=== PATIENT | female | born 1970 | race Caucasian/White ===

== ENCOUNTER 2017-03-30 21:49 | Inpatient (IN) | payer OTHER ==
[2017-03-30] MEDS ORDERED: Albuterol/Ipratropium 3.0-0.5 MG/3 ML Neb Soln NEB ONE (22:22)
--- NOTE | 2017-03-30 22:25 | EDM.PDOC ---
<Vance Wilson L - Last Filed: 03/31/17 13:40> ED HPI GENERAL MEDICAL PROBLEM - General Chief Complaint: Respiratory Problem Stated Complaint: DEHYDRATED AND HARD TIME BREATHING HAS EMPHYSEMA Time Seen by Provider: 03/30/17 22:20 - Related Data Allergies Allergy/AdvReac Type Severity Reaction Status Date / Time milk AdvReac Vomiting Verified 03/31/17 07:21 Home Meds: Home Meds Albuterol [Ventolin HFA] 2 puff INH ASDIRECTED PRN 03/30/17 [History] Course - Vital Signs Last Recorded V/S: Last Vital Signs Temp 36.5 C 04/01/17 04:19 Pulse 52 L 04/01/17 04:19 Resp 19 04/01/17 04:19 BP 148/62 H 04/01/17 04:19 Pulse Ox 96 04/01/17 04:19 - Orders/Labs/Meds Orders: Active Orders 24 hr Category Date Time Status Admission Status [Patient Status] [ADT] Routine ADT 03/31/17 13:40 Active Medication Orders Acetaminophen (Tylenol) 650 mg PO Q4H PRN PRN Reason: Pain/Fever Last Admin: 04/01/17 00:11 Dose: 650 mg Admin: 03/31/17 20:19 Dose: 650 mg Admin: 03/31/17 16:21 Dose: 650 mg Albuterol (Proventil Neb Soln) 2.5 mg NEB Q4HRRT PRN PRN Reason: Shortness of Breath Albuterol/Ipratropium (Duoneb 3.0-0.5 Mg/3 Ml) 3 ml NEB QID PRN PRN Reason: Shortness of Breath Hydralazine HCl (Apresoline) 20 mg IVPUSH Q6H PRN PRN Reason: Hypertension Miscellaneous Information (Remove Patch) 1 ea TRDERM DAILY [facility] Nicotine (Habitrol) 21 mg TRDERM DAILY [facility] Ondansetron HCl (Zofran) 4 mg IVPUSH Q8H PRN PRN Reason: Nausea/Vomiting Aspercreme + Lidocaine Roll On Own Med 0 each TOP Q4H PRN PRN Reason: Pain Temazepam (Restoril) 7.5 mg PO BEDTIME PRN PRN Reason: Insomnia Labs: Laboratory Tests 03/30/17 03/30/17 03/30/17 Range/Units 22:22 22:22 22:29 WBC 7.47 (3.98-10.04) K/mm3 RBC 4.84 (3.98-5.22) M/mm3 Hgb 13.8 (11.2-15.7) gm/L Hct 41.6 (34.1-44.9) % MCV 86.0 (79.4-94.8) fl MCH 28.5 (25.6-32.2) pg MCHC 33.2 (32.2-35.5) g/dl RDW Std Deviation 48.2 H (36.4-46.3) fL Plt Count 206 (182-369) K/mm3 MPV 10.2 (9.4-12.3) fl Neutrophils % (Manual) 63 H (40-60) % Band Neutrophils % 0 (0-10) % Lymphocytes % (Manual) 33 (20-40) % Atypical Lymphs % 2 % Monocytes % (Manual) 2 (2-10) % Eosinophils % (Manual) 0 L (0.7-5.8) % Basophils % (Manual) 0 L (0.1-1.2) Platelet Estimate Adequate Plt Morphology Comment Normal Poikilocytosis 1+ slight Anisocytosis 1+ slight Microcytosis 1+ slight Macrocytosis 1+ slight Tear Drop Cells 1+ slight Ovalocytes 1+ slight RBC Morph Comment Abnormal Sodium 139 (136-145) mEq/L Potassium 3.2 L (3.5-5.1) mEq/L Chloride 98 (98-107) mEq/L Carbon Dioxide 23 (21-32) mEq/L Anion Gap 21.2 H (5-15) BUN 4 L (7-18) mg/dL Creatinine 0.7 (0.55-1.02) mg/dL Est Cr Clr Drug Dosing 105.13 mL/min Estimated GFR (MDRD) > 60 (>60) mL/min BUN/Creatinine Ratio 5.7 L (14-18) Glucose 100 (74-106) mg/dL Serum Osmolality (280-300) mosm/kg Lactic Acid (0.4-2.0) mmol/L Calcium 9.4 (8.5-10.1) mg/dL Magnesium 1.8 (1.8-2.4) mg/dl Total Bilirubin 0.5 (0.2-1.0) mg/dL AST 67 H (15-37) U/L ALT 66 H (14-59) U/L Alkaline Phosphatase 115 (46-116) U/L Troponin I < 0.017 (0.00-0.056) ng/mL C-Reactive Protein 0.3 (<1.0) mg/dL Total Protein 7.6 (6.4-8.2) g/dl Albumin 3.9 (3.4-5.0) g/dl Globulin 3.7 gm/dL Albumin/Globulin Ratio 1.1 (1-2) Lipase 344 (73-393) U/L Urine Color (Yellow) Urine Appearance (Clear) Urine pH (5.0-8.0) Ur Specific [place] (1.005-1.030) Urine Protein (Negative) Urine Glucose (UA) (Negative) Urine Ketones (Negative) Urine Occult Blood (Negative) Urine Nitrite (Negative) Urine Bilirubin (Negative) Urine Urobilinogen (0.2-1.0) Ur Leukocyte Esterase (Negative) Urine RBC (0-5) /hpf Urine WBC (0-5) /hpf Urine WBC Clumps (NOT SEEN) /hpf Ur Epithelial Cells (0-5) /hpf Urine Bacteria (FEW) /hpf Urine Mucus (FEW) /hpf Salicylates (2.8-20) mg/dL Ketones 0.38 (0.0-0.3) mM 03/30/17 03/30/17 03/30/17 Range/Units 22:30 22:50 23:29 WBC (3.98-10.04) K/mm3 RBC (3.98-5.22) M/mm3 Hgb (11.2-15.7) gm/L Hct (34.1-44.9) % MCV (79.4-94.8) fl MCH (25.6-32.2) pg MCHC (32.2-35.5) g/dl RDW Std Deviation (36.4-46.3) fL Plt Count (182-369) K/mm3 MPV (9.4-12.3) fl Neutrophils % (Manual) (40-60) % Band Neutrophils % (0-10) % Lymphocytes % (Manual) (20-40) % Atypical Lymphs % % Monocytes % (Manual) (2-10) % Eosinophils % (Manual) (0.7-5.8) % Basophils % (Manual) (0.1-1.2) Platelet Estimate Plt Morphology Comment Poikilocytosis Anisocytosis Microcytosis Macrocytosis Tear Drop Cells Ovalocytes RBC Morph Comment Sodium (136-145) mEq/L Potassium (3.5-5.1) mEq/L Chloride (98-107) mEq/L Carbon Dioxide (21-32) mEq/L Anion Gap (5-15) BUN (7-18) mg/dL Creatinine (0.55-1.02) mg/dL Est Cr Clr Drug Dosing mL/min Estimated GFR (MDRD) (>60) mL/min BUN/Creatinine Ratio (14-18) Glucose (74-106) mg/dL Serum Osmolality 354 H (280-300) mosm/kg Lactic Acid 4.4 H (0.4-2.0) mmol/L Calcium (8.5-10.1) mg/dL Magnesium (1.8-2.4) mg/dl Total Bilirubin (0.2-1.0) mg/dL AST (15-37) U/L ALT (14-59) U/L Alkaline Phosphatase (46-116) U/L Troponin I (0.00-0.056) ng/mL C-Reactive Protein (<1.0) mg/dL Total Protein (6.4-8.2) g/dl Albumin (3.4-5.0) g/dl Globulin gm/dL Albumin/Globulin Ratio (1-2) Lipase (73-393) U/L Urine Color (Yellow) Urine Appearance (Clear) Urine pH (5.0-8.0) Ur Specific [place] (1.005-1.030) Urine Protein (Negative) Urine Glucose (UA) (Negative) Urine Ketones (Negative) Urine Occult Blood (Negative) Urine Nitrite (Negative) Urine Bilirubin (Negative) Urine Urobilinogen (0.2-1.0) Ur Leukocyte Esterase (Negative) Urine RBC (0-5) /hpf Urine WBC (0-5) /hpf Urine WBC Clumps (NOT SEEN) /hpf Ur Epithelial Cells (0-5) /hpf Urine Bacteria (FEW) /hpf Urine Mucus (FEW) /hpf Salicylates 5.5 (2.8-20) mg/dL Ketones (0.0-0.3) mM 03/30/17 03/31/17 03/31/17 Range/Units 23:50 05:55 05:55 WBC (3.98-10.04) K/mm3 RBC (3.98-5.22) M/mm3 Hgb (11.2-15.7) gm/L Hct (34.1-44.9) % MCV (79.4-94.8) fl MCH (25.6-32.2) pg MCHC (32.2-35.5) g/dl RDW Std Deviation (36.4-46.3) fL Plt Count (182-369) K/mm3 MPV (9.4-12.3) fl Neutrophils % (Manual) (40-60) % Band Neutrophils % (0-10) % Lymphocytes % (Manual) (20-40) % Atypical Lymphs % % Monocytes % (Manual) (2-10) % Eosinophils % (Manual) (0.7-5.8) % Basophils % (Manual) (0.1-1.2) Platelet Estimate Plt Morphology Comment Poikilocytosis Anisocytosis Microcytosis Macrocytosis Tear Drop Cells Ovalocytes RBC Morph Comment Sodium 141 (136-145) mEq/L Potassium 3.4 L (3.5-5.1) mEq/L Chloride 109 H (98-107) mEq/L Carbon Dioxide 23 (21-32) mEq/L Anion Gap 12.4 (5-15) BUN 3 L (7-18) mg/dL Creatinine 0.7 (0.55-1.02) mg/dL Est Cr Clr Drug Dosing 105.13 mL/min Estimated GFR (MDRD) > 60 (>60) mL/min BUN/Creatinine Ratio 4.3 L (14-18) Glucose 157 H (74-106) mg/dL Serum Osmolality (280-300) mosm/kg Lactic Acid 2.9 H (0.4-2.0) mmol/L Calcium 7.8 L (8.5-10.1) mg/dL Magnesium (1.8-2.4) mg/dl Total Bilirubin 0.5 (0.2-1.0) mg/dL AST 44 H (15-37) U/L ALT 46 (14-59) U/L Alkaline Phosphatase 87 (46-116) U/L Troponin I (0.00-0.056) ng/mL C-Reactive Protein (<1.0) mg/dL Total Protein 5.7 L (6.4-8.2) g/dl Albumin 2.8 L (3.4-5.0) g/dl Globulin 2.9 gm/dL Albumin/Globulin Ratio 1.0 (1-2) Lipase (73-393) U/L Urine Color Light yellow (Yellow) Urine Appearance Slt cloudy H (Clear) Urine pH 6.5 (5.0-8.0) Ur Specific [place] 1.010 (1.005-1.030) Urine Protein Negative (Negative) Urine Glucose (UA) Trace H (Negative) Urine Ketones Negative (Negative) Urine Occult Blood 1+ H (Negative) Urine Nitrite Positive H (Negative) Urine Bilirubin Negative (Negative) Urine Urobilinogen 0.2 (0.2-1.0) Ur Leukocyte Esterase 3+ H (Negative) Urine RBC 0-5 (0-5) /hpf Urine WBC 40-50 H (0-5) /hpf Urine WBC Clumps Few (NOT SEEN) /hpf Ur Epithelial Cells 0-5 (0-5) /hpf Urine Bacteria Many H (FEW) /hpf Urine Mucus Not seen (FEW) /hpf Salicylates (2.8-20) mg/dL Ketones (0.0-0.3) mM 03/31/17 03/31/17 Range/Units 12:45 12:45 WBC (3.98-10.04) K/mm3 RBC (3.98-5.22) M/mm3 Hgb (11.2-15.7) gm/L Hct (34.1-44.9) % MCV (79.4-94.8) fl MCH (25.6-32.2) pg MCHC (32.2-35.5) g/dl RDW Std Deviation (36.4-46.3) fL Plt Count (182-369) K/mm3 MPV (9.4-12.3) fl Neutrophils % (Manual) (40-60) % Band Neutrophils % (0-10) % Lymphocytes % (Manual) (20-40) % Atypical Lymphs % % Monocytes % (Manual) (2-10) % Eosinophils % (Manual) (0.7-5.8) % Basophils % (Manual) (0.1-1.2) Platelet Estimate Plt Morphology Comment Poikilocytosis Anisocytosis Microcytosis Macrocytosis Tear Drop Cells Ovalocytes RBC Morph Comment Sodium 142 (136-145) mEq/L Potassium 3.6 (3.5-5.1) mEq/L Chloride 109 H (98-107) mEq/L Carbon Dioxide 23 (21-32) mEq/L Anion Gap 13.6 (5-15) BUN 4 L (7-18) mg/dL Creatinine 0.7 (0.55-1.02) mg/dL Est Cr Clr Drug Dosing 105.13 mL/min Estimated GFR (MDRD) > 60 (>60) mL/min BUN/Creatinine Ratio 5.7 L (14-18) Glucose 125 H (74-106) mg/dL Serum Osmolality (280-300) mosm/kg Lactic Acid 1.6 (0.4-2.0) mmol/L Calcium 7.7 L (8.5-10.1) mg/dL Magnesium (1.8-2.4) mg/dl Total Bilirubin 0.6 (0.2-1.0) mg/dL AST 50 H (15-37) U/L ALT 50 (14-59) U/L Alkaline Phosphatase 82 (46-116) U/L Troponin I (0.00-0.056) ng/mL C-Reactive Protein (<1.0) mg/dL Total Protein 5.4 L (6.4-8.2) g/dl Albumin 2.7 L (3.4-5.0) g/dl Globulin 2.7 gm/dL Albumin/Globulin Ratio 1.0 (1-2) Lipase (73-393) U/L Urine Color (Yellow) Urine Appearance (Clear) Urine pH (5.0-8.0) Ur Specific [place] (1.005-1.030) Urine Protein (Negative) Urine Glucose (UA) (Negative) Urine Ketones (Negative) Urine Occult Blood (Negative) Urine Nitrite (Negative) Urine Bilirubin (Negative) Urine Urobilinogen (0.2-1.0) Ur Leukocyte Esterase (Negative) Urine RBC (0-5) /hpf Urine WBC (0-5) /hpf Urine WBC Clumps (NOT SEEN) /hpf Ur Epithelial Cells (0-5) /hpf Urine Bacteria (FEW) /hpf Urine Mucus (FEW) /hpf Salicylates (2.8-20) mg/dL Ketones (0.0-0.3) mM Meds: Medications Generic Name Dose Route Start Last Admin Trade Name Javy PRN Reason Stop Dose Admin Acetaminophen 650 mg 03/31/17 16:09 04/01/17 00:11 Tylenol PO 650 mg Q4H PRN Administration Pain/Fever Albuterol 2.5 mg 03/31/17 20:05 Proventil Neb Soln NEB Q4HRRT PRN Shortness of Breath Albuterol/Ipratropium 3 ml 03/31/17 20:06 Duoneb 3.0-0.5 Mg/3 Ml NEB QID PRN Shortness of Breath Hydralazine HCl 20 mg 03/31/17 20:06 Apresoline IVPUSH Q6H PRN Hypertension Miscellaneous Information 1 ea 04/02/17 09:00 Remove Patch TRDERM DAILY [facility] Nicotine 21 mg 04/01/17 09:00 Habitrol TRDERM DAILY [facility] Ondansetron HCl 4 mg 03/31/17 20:07 Zofran IVPUSH Q8H PRN Nausea/Vomiting Aspercreme + 0 each 03/31/17 20:29 Lidocaine Roll On TOP Own Med Q4H PRN Pain Temazepam 7.5 mg 03/31/17 20:08 Restoril PO BEDTIME PRN Insomnia Discontinued Medications Generic Name Dose Route Start Last Admin Trade Name Javy PRN Reason Stop Dose Admin Acetaminophen 975 mg 03/31/17 10:48 03/31/17 10:52 Tylenol PO 03/31/17 10:49 975 mg NOW ONE Administration Albuterol/Ipratropium 3 ml 03/30/17 22:22 03/30/17 22:39 Duoneb 3.0-0.5 Mg/3 Ml NEB 03/30/17 22:23 3 ml ONETIME ONE Administration Dextrose/Sodium Chloride 1,000 mls @ 999 mls/hr 03/30/17 22:30 03/31/17 02:15 Dextrose 5%-Normal Saline IV 999 mls/hr ASDIRECTED [facility] Administration Dextrose/Lactated Ringer's 1,000 mls @ 999 mls/hr 03/30/17 23:45 03/31/17 03: 33 Dextrose 5%-Lactated Ringers IV 999 mls/hr ASDIRECTED [facility] Administration Potassium Chloride 10 meq/ 100 mls @ 100 mls/hr 03/30/17 23:45 03/30/17 23:52 Premix IV 03/31/17 00:44 100 mls/hr ONETIME ONE Administration Dextrose/Sodium Chloride 1,000 mls @ 999 mls/min 03/31/17 01:15 Dextrose 5%-Normal Saline IV ASDIRECTED [facility] Levofloxacin/Dextrose 750 mg/ 150 mls @ 100 mls/hr 03/31/17 01:36 03/31/17 01 :43 Premix IV 03/31/17 03:05 100 mls/hr ONETIME ONE Administration Potassium Chloride 10 meq/ 100 mls @ 100 mls/hr 03/31/17 03:09 03/31/17 03:23 Premix IV 03/31/17 04:08 100 mls/hr ONETIME ONE Administration Dextrose/Sodium Chloride 1,000 mls @ 300 mls/hr 03/31/17 07:17 03/31/17 10:52 Dextrose 5%-1/2 Ns IV 300 mls/hr ASDIRECTED [facility] Administration Dextrose/Sodium Chloride 1,000 mls @ 300 mls/hr 03/31/17 07:30 Dextrose 5%-Normal Saline IV ASDIRECTED [facility] Potassium Chloride 10 meq/ 100 mls @ 100 mls/hr 03/31/17 07:30 03/31/17 08:09 Premix IV 03/31/17 08:29 100 mls/hr ONETIME ONE Administration Lorazepam 1 mg 03/31/17 01:03 03/31/17 01:14 Ativan IVPUSH 03/31/17 01:04 1 mg ONETIME ONE Administration Ondansetron HCl 4 mg 03/30/17 22:32 03/30/17 22:37 Zofran IVPUSH 03/30/17 22:33 4 mg ONETIME ONE Administration Departure - Departure Time of Disposition: 07:15 Disposition: Admitted As Inpatient 64 Clinical Impression: Metabolic acidosis with increased anion gap and accumulation of organic acids, Hypokalemia due to inadequate potassium intake, Pyelonephritis Nausea and vomiting Qualifiers: Vomiting type: bilious vomiting Qualified Code(s): R11.14 - Bilious vomiting COPD (chronic obstructive pulmonary disease) Qualifiers: COPD type: unspecified COPD Qualified Code(s): J44.9 - Chronic obstructive pulmonary disease, unspecified Urinary tract infection Qualifiers: Urinary tract infection type: acute cystitis Hematuria presence: without hematuria Qualified Code(s): N30.00 - Acute cystitis without hematuria - Discharge Information <Enrico Alexis - Last Filed: 04/01/17 06:13> ED HPI GENERAL MEDICAL PROBLEM - General Source of Information: Reports: Patient History Limitations: Reports: No Limitations - History of Present Illness INITIAL COMMENTS - FREE TEXT/NARRATIVE: 47-year-old female presents the ED with just generally not feeling well. She states she's not felt well for about 4 days. Low-grade fevers subjectively. No bad chills. She has not checked her temperature at home. Minimal increased cough. She has severe COPD and has not been using her inhalers. She states appetite has been extremely poor and she feels she is dehydrated. Blood pressure initially was 103 on 70 but did drop to 80/54 for a period of time. I' ll function has been okay. She's been trying to take fluids by way of Gatorade Powerade but has had very little solids orally. Previous gastric bypass with [place]-en-Y procedure greater than 20 years ago. Stools are usually formed up. Onset: Gradual Onset Date: 03/27/17 Duration: Day(s):, Getting Worse (Getting weaker.) Location: Reports: Generalized (Generalized weakness and fatigue. Aggressive breath on minimal exertion) Quality: Reports: Other (Severe fatigue and weakness dizziness with standing) Severity: Severe Improves with: Reports: Rest Worsens with: Reports: Other (Worse with standing and walking) Context: Denies: Activity, Exercise, Lifting, Sick Contact, Trauma, Other Associated Symptoms: Reports: Cough, cough w sputum, Fever/Chills (Subjectively fever no chills), Loss of Appetite, Malaise, Nausea/Vomiting (Worse than normal. ), Shortness of Breath, Weakness ( Mild nausea severe generalized weakness ). Denies: No Other Symptoms, Confusion, Chest Pain (Clear sputum but it's thick and normal), Diaphoresis, Syncope Treatments [employer]: Reports: Other (see below) (None.) Right Knee Pain Score (Numeric/FACES): 6 Past Medical History Cardiovascular History: Reports: SOB on Exertion Respiratory History: Reports: Other (See Below) Other Respiratory History: emphysema Other Gastrointestinal History: uncerative cholitis - Past Surgical History GI Surgical History: Reports: Other (See Below) Other GI Surgeries/Procedures: gastric bypass--[place]-en-[place] procedure greater than 20 years ago. Her baseline weight is 150 pounds. She was 89 when she had the bypass. Social & Family History - Tobacco Use Smoking Status *Q: Current Every Day Smoker Years of Tobacco use: 36 Packs/Tins Daily: 0.4 - Caffeine Use Caffeine Use: Reports: Tea - Alcohol Use Days Per Week of Alcohol Use: 2 Number of Drinks Per Day: 2 Total Drinks Per Week: 4 - Recreational Drug Use Recreational Drug Use: No - Living Situation & Occupation Living situation: Reports: Occupation: Employed ED ROS GENERAL - Review of Systems Review Of Systems: See Below Constitutional: Reports: Fever, Malaise (Subjectively), Weakness, Fatigue, Decreased Appetite, Weight Loss. Denies: Chills HEENT: Reports: No Symptoms Respiratory: Reports: Shortness of Breath, Cough, Sputum (Occasional cough with thick white sputum). Denies: Wheezing, Pleuritic Chest Pain, Hemoptysis (white) Cardiovascular: Reports: Dyspnea on Exertion (Chronically), Lightheadedness. Denies: Chest Pain, Blood Pressure Problem, Claudication, Edema, Orthopnea Endocrine: Reports: Fatigue GI/Abdominal: Reports: Anorexia, Decreased Appetite, Nausea (Intermittent nausea ). Denies: Abdominal Pain, Black Stool, Bloody Stool, Constipation, Diarrhea, Difficulty Swallowing, Distension, Flatus, Hematemesis, Hematochezia, Vomiting : Reports: No Symptoms Musculoskeletal: Reports: No Symptoms, Muscle Stiffness Skin: Reports: No Symptoms Neurological: Reports: Dizziness, Difficulty Walking, Weakness (Due to leg weakness) Psychiatric: Reports: No Symptoms Hematologic/Lymphatic: Reports: No Symptoms Immunologic: Reports: No Symptoms ED EXAM, GENERAL - Physical Exam Exam: See Below Exam Limited By: No Limitations General Appearance: Alert, WD/WN, Moderate Distress (Appears ill. Afebrile on examination.) Eye Exam: Bilateral Eye: Normal Inspection (No jaundice.) Throat/Mouth: Other Head: Atraumatic, Normocephalic (Tongue is dry and coated) Neck: Normal Inspection, Supple, Non-Tender, Full Range of Motion. No: Carotid Bruit, Lymphadenopathy (L), Lymphadenopathy (R) Respiratory/Chest: No Respiratory Distress, Decreased Breath Sounds (Breath sounds are mildly diminished the lower 30% of lung costa posteriorly), Rhonchi (Few rhonchi left lower lung field posteriorly.). No: No Accessory Muscle Use, Chest Non-Tender, Respiratory Distress Cardiovascular: Normal Peripheral Pulses, Regular Rate, Rhythm, No Edema, No Gallop, No Murmur, No Rub Peripheral Pulses: 1+: Posterior Tibial (L), Posterior Tibial (R), Dorsalis Pedis (L), Dorsalis Pedis (R) GI/Abdominal: Normal Bowel Sounds, Soft, Non-Tender, No Organomegaly, No Abnormal Bruit, No Mass, Pelvis Stable, Other (Evidence of previous abdominal surgery. She has had gastric bypass surgery.) Back Exam: Normal Inspection, Full Range of Motion. No: CVA Tenderness (L), CVA Tenderness (R) Extremities: Normal Inspection, Normal Range of Motion, Non-Tender, No Pedal Edema Neurological: Alert, Oriented, CN II-XII Intact, Normal Cognition, Normal Gait Psychiatric: Normal Affect, Normal Mood Skin Exam: Warm, Dry, Intact, Pallor (Sleep slight grayish pallor.) Course - Orders/Labs/Meds Orders: Active Orders 24 hr Category Date Time Status Admission Status [Patient Status] [ADT] Routine ADT 03/31/17 13:40 Active Medication Orders Acetaminophen (Tylenol) 650 mg PO Q4H PRN PRN Reason: Pain/Fever Last Admin: 04/01/17 00:11 Dose: 650 mg Admin: 03/31/17 20:19 Dose: 650 mg Admin: 03/31/17 16:21 Dose: 650 mg Albuterol (Proventil Neb Soln) 2.5 mg NEB Q4HRRT PRN PRN Reason: Shortness of Breath Albuterol/Ipratropium (Duoneb 3.0-0.5 Mg/3 Ml) 3 ml NEB QID PRN PRN Reason: Shortness of Breath Hydralazine HCl (Apresoline) 20 mg IVPUSH Q6H PRN PRN Reason: Hypertension Miscellaneous Information (Remove Patch) 1 ea TRDERM DAILY [facility] Nicotine (Habitrol) 21 mg TRDERM DAILY [facility] Ondansetron HCl (Zofran) 4 mg IVPUSH Q8H PRN PRN Reason: Nausea/Vomiting Aspercreme + Lidocaine Roll On Own Med 0 each TOP Q4H PRN PRN Reason: Pain Temazepam (Restoril) 7.5 mg PO BEDTIME PRN PRN Reason: Insomnia Labs: Laboratory Tests 03/30/17 03/30/17 03/30/17 Range/Units 22:22 22:22 22:29 WBC 7.47 (3.98-10.04) K/mm3 RBC 4.84 (3.98-5.22) M/mm3 Hgb 13.8 (11.2-15.7) gm/L Hct 41.6 (34.1-44.9) % MCV 86.0 (79.4-94.8) fl MCH 28.5 (25.6-32.2) pg MCHC 33.2 (32.2-35.5) g/dl RDW Std Deviation 48.2 H (36.4-46.3) fL Plt Count 206 (182-369) K/mm3 MPV 10.2 (9.4-12.3) fl Neutrophils % (Manual) 63 H (40-60) % Band Neutrophils % 0 (0-10) % Lymphocytes % (Manual) 33 (20-40) % Atypical Lymphs % 2 % Monocytes % (Manual) 2 (2-10) % Eosinophils % (Manual) 0 L (0.7-5.8) % Basophils % (Manual) 0 L (0.1-1.2) Platelet Estimate Adequate Plt Morphology Comment Normal Poikilocytosis 1+ slight Anisocytosis 1+ slight Microcytosis 1+ slight Macrocytosis 1+ slight Tear Drop Cells 1+ slight Ovalocytes 1+ slight RBC Morph Comment Abnormal Sodium 139 (136-145) mEq/L Potassium 3.2 L (3.5-5.1) mEq/L Chloride 98 (98-107) mEq/L Carbon Dioxide 23 (21-32) mEq/L Anion Gap 21.2 H (5-15) BUN 4 L (7-18) mg/dL Creatinine 0.7 (0.55-1.02) mg/dL Est Cr Clr Drug Dosing 105.13 mL/min Estimated GFR (MDRD) > 60 (>60) mL/min BUN/Creatinine Ratio 5.7 L (14-18) Glucose 100 (74-106) mg/dL Serum Osmolality (280-300) mosm/kg Lactic Acid (0.4-2.0) mmol/L Calcium 9.4 (8.5-10.1) mg/dL Magnesium 1.8 (1.8-2.4) mg/dl Total Bilirubin 0.5 (0.2-1.0) mg/dL AST 67 H (15-37) U/L ALT 66 H (14-59) U/L Alkaline Phosphatase 115 (46-116) U/L Troponin I < 0.017 (0.00-0.056) ng/mL C-Reactive Protein 0.3 (<1.0) mg/dL Total Protein 7.6 (6.4-8.2) g/dl Albumin 3.9 (3.4-5.0) g/dl Globulin 3.7 gm/dL Albumin/Globulin Ratio 1.1 (1-2) Lipase 344 (73-393) U/L Urine Color (Yellow) Urine Appearance (Clear) Urine pH (5.0-8.0) Ur Specific [place] (1.005-1.030) Urine Protein (Negative) Urine Glucose (UA) (Negative) Urine Ketones (Negative) Urine Occult Blood (Negative) Urine Nitrite (Negative) Urine Bilirubin (Negative) Urine Urobilinogen (0.2-1.0) Ur Leukocyte Esterase (Negative) Urine RBC (0-5) /hpf Urine WBC (0-5) /hpf Urine WBC Clumps (NOT SEEN) /hpf Ur Epithelial Cells (0-5) /hpf Urine Bacteria (FEW) /hpf Urine Mucus (FEW) /hpf Salicylates (2.8-20) mg/dL Ketones 0.38 (0.0-0.3) mM 03/30/17 03/30/17 03/30/17 Range/Units 22:30 22:50 23:29 WBC (3.98-10.04) K/mm3 RBC (3.98-5.22) M/mm3 Hgb (11.2-15.7) gm/L Hct (34.1-44.9) % MCV (79.4-94.8) fl MCH (25.6-32.2) pg MCHC (32.2-35.5) g/dl RDW Std Deviation (36.4-46.3) fL Plt Count (182-369) K/mm3 MPV (9.4-12.3) fl Neutrophils % (Manual) (40-60) % Band Neutrophils % (0-10) % Lymphocytes % (Manual) (20-40) % Atypical Lymphs % % Monocytes % (Manual) (2-10) % Eosinophils % (Manual) (0.7-5.8) % Basophils % (Manual) (0.1-1.2) Platelet Estimate Plt Morphology Comment Poikilocytosis Anisocytosis Microcytosis Macrocytosis Tear Drop Cells Ovalocytes RBC Morph Comment Sodium (136-145) mEq/L Potassium (3.5-5.1) mEq/L Chloride (98-107) mEq/L Carbon Dioxide (21-32) mEq/L Anion Gap (5-15) BUN (7-18) mg/dL Creatinine (0.55-1.02) mg/dL Est Cr Clr Drug Dosing mL/min Estimated GFR (MDRD) (>60) mL/min BUN/Creatinine Ratio (14-18) Glucose (74-106) mg/dL Serum Osmolality 354 H (280-300) mosm/kg Lactic Acid 4.4 H (0.4-2.0) mmol/L Calcium (8.5-10.1) mg/dL Magnesium (1.8-2.4) mg/dl Total Bilirubin (0.2-1.0) mg/dL AST (15-37) U/L ALT (14-59) U/L Alkaline Phosphatase (46-116) U/L Troponin I (0.00-0.056) ng/mL C-Reactive Protein (<1.0) mg/dL Total Protein (6.4-8.2) g/dl Albumin (3.4-5.0) g/dl Globulin gm/dL Albumin/Globulin Ratio (1-2) Lipase (73-393) U/L Urine Color (Yellow) Urine Appearance (Clear) Urine pH (5.0-8.0) Ur Specific [place] (1.005-1.030) Urine Protein (Negative) Urine Glucose (UA) (Negative) Urine Ketones (Negative) Urine Occult Blood (Negative) Urine Nitrite (Negative) Urine Bilirubin (Negative) Urine Urobilinogen (0.2-1.0) Ur Leukocyte Esterase (Negative) Urine RBC (0-5) /hpf Urine WBC (0-5) /hpf Urine WBC Clumps (NOT SEEN) /hpf Ur Epithelial Cells (0-5) /hpf Urine Bacteria (FEW) /hpf Urine Mucus (FEW) /hpf Salicylates 5.5 (2.8-20) mg/dL Ketones (0.0-0.3) mM 03/30/17 03/31/17 03/31/17 Range/Units 23:50 05:55 05:55 WBC (3.98-10.04) K/mm3 RBC (3.98-5.22) M/mm3 Hgb (11.2-15.7) gm/L Hct (34.1-44.9) % MCV (79.4-94.8) fl MCH (25.6-32.2) pg MCHC (32.2-35.5) g/dl RDW Std Deviation (36.4-46.3) fL Plt Count (182-369) K/mm3 MPV (9.4-12.3) fl Neutrophils % (Manual) (40-60) % Band Neutrophils % (0-10) % Lymphocytes % (Manual) (20-40) % Atypical Lymphs % % Monocytes % (Manual) (2-10) % Eosinophils % (Manual) (0.7-5.8) % Basophils % (Manual) (0.1-1.2) Platelet Estimate Plt Morphology Comment Poikilocytosis Anisocytosis Microcytosis Macrocytosis Tear Drop Cells Ovalocytes RBC Morph Comment Sodium 141 (136-145) mEq/L Potassium 3.4 L (3.5-5.1) mEq/L Chloride 109 H (98-107) mEq/L Carbon Dioxide 23 (21-32) mEq/L Anion Gap 12.4 (5-15) BUN 3 L (7-18) mg/dL Creatinine 0.7 (0.55-1.02) mg/dL Est Cr Clr Drug Dosing 105.13 mL/min Estimated GFR (MDRD) > 60 (>60) mL/min BUN/Creatinine Ratio 4.3 L (14-18) Glucose 157 H (74-106) mg/dL Serum Osmolality (280-300) mosm/kg Lactic Acid 2.9 H (0.4-2.0) mmol/L Calcium 7.8 L (8.5-10.1) mg/dL Magnesium (1.8-2.4) mg/dl Total Bilirubin 0.5 (0.2-1.0) mg/dL AST 44 H (15-37) U/L ALT 46 (14-59) U/L Alkaline Phosphatase 87 (46-116) U/L Troponin I (0.00-0.056) ng/mL C-Reactive Protein (<1.0) mg/dL Total Protein 5.7 L (6.4-8.2) g/dl Albumin 2.8 L (3.4-5.0) g/dl Globulin 2.9 gm/dL Albumin/Globulin Ratio 1.0 (1-2) Lipase (73-393) U/L Urine Color Light yellow (Yellow) Urine Appearance Slt cloudy H (Clear) Urine pH 6.5 (5.0-8.0) Ur Specific [place] 1.010 (1.005-1.030) Urine Protein Negative (Negative) Urine Glucose (UA) Trace H (Negative) Urine Ketones Negative (Negative) Urine Occult Blood 1+ H (Negative) Urine Nitrite Positive H (Negative) Urine Bilirubin Negative (Negative) Urine Urobilinogen 0.2 (0.2-1.0) Ur Leukocyte Esterase 3+ H (Negative) Urine RBC 0-5 (0-5) /hpf Urine WBC 40-50 H (0-5) /hpf Urine WBC Clumps Few (NOT SEEN) /hpf Ur Epithelial Cells 0-5 (0-5) /hpf Urine Bacteria Many H (FEW) /hpf Urine Mucus Not seen (FEW) /hpf Salicylates (2.8-20) mg/dL Ketones (0.0-0.3) mM 03/31/17 03/31/17 Range/Units 12:45 12:45 WBC (3.98-10.04) K/mm3 RBC (3.98-5.22) M/mm3 Hgb (11.2-15.7) gm/L Hct (34.1-44.9) % MCV (79.4-94.8) fl MCH (25.6-32.2) pg MCHC (32.2-35.5) g/dl RDW Std Deviation (36.4-46.3) fL Plt Count (182-369) K/mm3 MPV (9.4-12.3) fl Neutrophils % (Manual) (40-60) % Band Neutrophils % (0-10) % Lymphocytes % (Manual) (20-40) % Atypical Lymphs % % Monocytes % (Manual) (2-10) % Eosinophils % (Manual) (0.7-5.8) % Basophils % (Manual) (0.1-1.2) Platelet Estimate Plt Morphology Comment Poikilocytosis Anisocytosis Microcytosis Macrocytosis Tear Drop Cells Ovalocytes RBC Morph Comment Sodium 142 (136-145) mEq/L Potassium 3.6 (3.5-5.1) mEq/L Chloride 109 H (98-107) mEq/L Carbon Dioxide 23 (21-32) mEq/L Anion Gap 13.6 (5-15) BUN 4 L (7-18) mg/dL Creatinine 0.7 (0.55-1.02) mg/dL Est Cr Clr Drug Dosing 105.13 mL/min Estimated GFR (MDRD) > 60 (>60) mL/min BUN/Creatinine Ratio 5.7 L (14-18) Glucose 125 H (74-106) mg/dL Serum Osmolality (280-300) mosm/kg Lactic Acid 1.6 (0.4-2.0) mmol/L Calcium 7.7 L (8.5-10.1) mg/dL Magnesium (1.8-2.4) mg/dl Total Bilirubin 0.6 (0.2-1.0) mg/dL AST 50 H (15-37) U/L ALT 50 (14-59) U/L Alkaline Phosphatase 82 (46-116) U/L Troponin I (0.00-0.056) ng/mL C-Reactive Protein (<1.0) mg/dL Total Protein 5.4 L (6.4-8.2) g/dl Albumin 2.7 L (3.4-5.0) g/dl Globulin 2.7 gm/dL Albumin/Globulin Ratio 1.0 (1-2) Lipase (73-393) U/L Urine Color (Yellow) Urine Appearance (Clear) Urine pH (5.0-8.0) Ur Specific [place] (1.005-1.030) Urine Protein (Negative) Urine Glucose (UA) (Negative) Urine Ketones (Negative) Urine Occult Blood (Negative) Urine Nitrite (Negative) Urine Bilirubin (Negative) Urine Urobilinogen (0.2-1.0) Ur Leukocyte Esterase (Negative) Urine RBC (0-5) /hpf Urine WBC (0-5) /hpf Urine WBC Clumps (NOT SEEN) /hpf Ur Epithelial Cells (0-5) /hpf Urine Bacteria (FEW) /hpf Urine Mucus (FEW) /hpf Salicylates (2.8-20) mg/dL Ketones (0.0-0.3) mM Meds: Medications Generic Name Dose Route Start Last Admin Trade Name Freq PRN Reason Stop Dose Admin Acetaminophen 650 mg 03/31/17 16:09 04/01/17 00:11 Tylenol PO 650 mg Q4H PRN Administration Pain/Fever Albuterol 2.5 mg 03/31/17 20:05 Proventil Neb Soln NEB Q4HRRT PRN Shortness of Breath Albuterol/Ipratropium 3 ml 03/31/17 20:06 Duoneb 3.0-0.5 Mg/3 Ml NEB QID PRN Shortness of Breath Hydralazine HCl 20 mg 03/31/17 20:06 Apresoline IVPUSH Q6H PRN Hypertension Miscellaneous Information 1 ea 04/02/17 09:00 Remove Patch TRDERM DAILY BHAVANI Nicotine 21 mg 04/01/17 09:00 Habitrol TRDERM DAILY BHAVANI Ondansetron HCl 4 mg 03/31/17 20:07 Zofran IVPUSH Q8H PRN Nausea/Vomiting Aspercreme + 0 each 03/31/17 20:29 Lidocaine Roll On TOP Own Med Q4H PRN Pain Temazepam 7.5 mg 03/31/17 20:08 Restoril PO BEDTIME PRN Insomnia Discontinued Medications Generic Name Dose Route Start Last Admin Trade Name Freq PRN Reason Stop Dose Admin Acetaminophen 975 mg 03/31/17 10:48 03/31/17 10:52 Tylenol PO 03/31/17 10:49 975 mg NOW ONE Administration Albuterol/Ipratropium 3 ml 03/30/17 22:22 03/30/17 22:39 Duoneb 3.0-0.5 Mg/3 Ml NEB 03/30/17 22:23 3 ml ONETIME ONE Administration Dextrose/Sodium Chloride 1,000 mls @ 999 mls/hr 03/30/17 22:30 03/31/17 02:15 Dextrose 5%-Normal Saline IV 999 mls/hr ASDIRECTED BHAVANI Administration Dextrose/Lactated Ringer's 1,000 mls @ 999 mls/hr 03/30/17 23:45 03/31/17 03: 33 Dextrose 5%-Lactated Ringers IV 999 mls/hr ASDIRECTED BHAVANI Administration Potassium Chloride 10 meq/ 100 mls @ 100 mls/hr 03/30/17 23:45 03/30/17 23:52 Premix IV 03/31/17 00:44 100 mls/hr ONETIME ONE Administration Dextrose/Sodium Chloride 1,000 mls @ 999 mls/min 03/31/17 01:15 Dextrose 5%-Normal Saline IV ASDIRECTED BHAVANI Levofloxacin/Dextrose 750 mg/ 150 mls @ 100 mls/hr 03/31/17 01:36 03/31/17 01 :43 Premix IV 03/31/17 03:05 100 mls/hr ONETIME ONE Administration Potassium Chloride 10 meq/ 100 mls @ 100 mls/hr 03/31/17 03:09 03/31/17 03:23 Premix IV 03/31/17 04:08 100 mls/hr ONETIME ONE Administration Dextrose/Sodium Chloride 1,000 mls @ 300 mls/hr 03/31/17 07:17 03/31/17 10:52 Dextrose 5%-1/2 Ns IV 300 mls/hr ASDIRECTED BHAVANI Administration Dextrose/Sodium Chloride 1,000 mls @ 300 mls/hr 03/31/17 07:30 Dextrose 5%-Normal Saline IV ASDIRECTED BHAVANI Potassium Chloride 10 meq/ 100 mls @ 100 mls/hr 03/31/17 07:30 03/31/17 08:09 Premix IV 03/31/17 08:29 100 mls/hr ONETIME ONE Administration Lorazepam 1 mg 03/31/17 01:03 03/31/17 01:14 Ativan IVPUSH 03/31/17 01:04 1 mg ONETIME ONE Administration Ondansetron HCl 4 mg 03/30/17 22:32 03/30/17 22:37 Zofran IVPUSH 03/30/17 22:33 4 mg ONETIME ONE Administration - Radiology Interpretation Free Text/Narrative:: 47-year-old female presents to the ED with a four-day history of feeling unwell. Very poor oral intake as well as very poor intake of solids for the last 3-4 days. Feels severely weak and short of breath on minimal exertion. Has known severe COPD for age. Unclear if she has antitrypsin 1 deficiency. She states she has a cough bringing up mostly thick white sputum. Subjective fever but afebrile on exam here. Blood pressure is very low suggesting she is volume depleted. Does have a few rhonchi left lower lobe of lung posteriorly. The nose and throat exam is otherwise normal. Benign abdomen. She denies any genitourinary complaints. Clinically she may be suffering from a metabolic acidosis possible sepsis. She appears ill. Plan routine labs with blood cultures 2. Lactic acid serum ketones to be done as well. IV will be D5 normal saline at open. Given Zofran 4 mg IV for slight nausea relief. At present she is afebrile. O2 sats are 96% on room air. Will have one view of the chest done. - Re-Assessments/Exams Free Text/Narrative Re-Assessment/Exam: 03/30/17 23:13 portable chest x-ray is within normal limits showing minimal hyperinflation. Lungs are clear. Cardiac silhouette is normal in size and shape. 03/30/17 23:28 Labs revealed a white count of 7.47 differential pending. Hemoglobin is 13.8 with hematocrit of 41.6. Platelets are normal 206,000. Sodium is 139 potassium is low at 3.2. Chloride 98 bicarbonate 23 and a gap is markedly elevated at 21.2. BUN is 4. Creatinine is 0.7. GFR is greater than 60. BUN/creatinine ratio is low at 5.7 glucose 100 cm osmolality 354 markedly elevated. Calcium is 9.4 with magnesium of 1.8. Total bilirubin 0.5 AST is mildly elevated at 67 ALT is 66. Alk phosphatase normal at 1:15. Troponin is less than 0.017 C-reactive protein is 0.3. Lipase normal at 344. Serum ketones and lactic acid pending. Therefore the cause of metabolic acidosis is not readily evident. Will order serum salicylate level. Blood pressure is currently 97/72. 03/31/17 00:07 Differential available on the white count is 63% neutrophils and no bands. 33% lymphocytes. Lactic acid is markedly elevated at 4.4. Serum ketones are elevated at 0.38.. Salicylate level came back at 5.5 i.e. normal range. 03/31/17 01:05 patient will be given Ativan 1 mg IV to help her sleep as she will be staying in the ED overnight for IV hydration to correct her metabolic acidosis. He did eat a small meal at this time. Third liter of fluid will be D5 normal saline at open 03/31/17 01:35 Urinalysis is now back. Shows 1+ occult blood positive nitrates 3 + leukocyte esterase 40-50 WBCs per high-power field and many bacteria. Urine culture ordered. Patient will be treated with Levaquin 750 mg IV. Patient will have CMP and lactic acid repeated at 0600 hrs. The plan will to be to give her 4 L of fluid overnight to correct the metabolic acidosis. It's unclear she's actually ill from the urinary tract infection as she has a normal white count and no fever. Current blood preasure is 88/75 suggesting sepsis. It has been hanging mostly around 97-100 systolic. 03/31/17 03:08 BP is currently 98/46. Will add second dosage of potassium chloride-10 mEq IV over the next hour. Patient has been able to rest since receiving intravenous Ativan 1 mg. 03/31/17 04:59 BP is currently 98/52. Is been as high as 108 systolically. Current IV isD5 normal saline at 300 mils per hour. 03/31/17 07:31 labs are as improved compared to initial labs. However she remains acidotic with lactic acid of 2.9. It was 4.4 when she came in. Anion gap is improved dramatically from 21.9 down to 12.2. Potassium is still slightly low at 3.4. Plan continue IV fluids D5 normal saline at 300 mils an hour. She will receive another 10 mg potassium IV over the next hour. Discussed the case with communications station manager hospitalist Dr. Quiñones and the plan will be for her to eventually be admitted to the [facility] surgery floor as an inpatient. There will be some discharges this morning therefore the patient will remain in the emergency room until a satisfactory bed can be found for her. Dr. Laird is taking over as it is change of shift. Departure - Departure Condition: Fair
[2017-03-30] MEDS: Dextrose 5%-0.9% NaCl 1,000 ML IV SCH ×2 (22:28→23:50)
[2017-03-30] MEDS ORDERED: Ondansetron 4 MG/2 ML SDV IVPUSH ONE (22:32)
[2017-03-30] MEDS ORDERED: Potassium Chloride 10 MEQ in Premix Bag 1 BAG IV ONE (23:45)
[2017-03-30] MEDS ORDERED: Dextrose 5%-Lactated Ringers 1,000 ML IV SCH (23:45)
[2017-03-31] MEDS ORDERED: LORazepam 2 MG/ML MDV IVPUSH ONE (01:03)
[2017-03-31] MEDS: Dextrose 5%-0.9% NaCl 1,000 ML IV SCH ×2 (01:12→02:15)
[2017-03-31] MEDS ORDERED: Dextrose 5%-0.9% NaCl 1,000 ML IV SCH ×2 (01:15→07:30)
[2017-03-31] MEDS ORDERED: Levofloxacin/Dextrose 5%-Water 750 MG in Premix Bag 1 BAG IV ONE (01:36)
[2017-03-31] MEDS ORDERED: Potassium Chloride 10 MEQ in Premix Bag 1 BAG IV ONE ×2 (03:09→07:30)
[2017-03-31] MEDS: Dextrose 5%-0.45% NaCl 1,000 ML IV SCH ×2 (07:26→10:52)
--- NOTE | 2017-03-31 10:06 | CR ---
Chest: Portable view of the chest was obtained. Comparison: Prior chest x-ray of 09/04/14. Heart size and mediastinum are normal. Slight linear scarring is seen within the left lung base. Lungs otherwise are clear but hyperinflated. Mild scoliosis is present within the spine. Surgical clips are seen at the gastroesophageal junction. Impression: 1. Incidental findings. Diagnostic code #2
[2017-03-31] MEDS ORDERED: Acetaminophen 325 MG Tab PO ONE (10:48)
--- NOTE | 2017-03-31 16:17 | PCM.HP ---
H&P History of Present Illness - General Date of Service: 03/31/17 - History of Present Illness Initial Comments - Free Text/Narative: 47 year old female with symptoms of respiratory infection had an elevated lactic acid received over 5 liters in the ED along with Levoquin has greatly improved. She has greatly improved. The patient has a past medical history of COPD; she is a current tobacco user. Reportedly has a thirty six pack year history. The patient has not been feeling well for over 4 days with a low grade fever. It was associated with chills and a productive cough. She has experienced generalized weakness, malaise and a decreased appetite. UA was positive for AUTI, respiratory work also be pursue. She has been admitted to [facility]. Onset of Symptoms: Reports: Gradual Symptom Onset Date: 03/27/17 Duration of Symptoms: Reports: Day(s):, Getting Worse Location: Reports: Abdomen, Generalized Severity: Moderate Improves with: Reports: Medication Worsens with: Reports: None Associated Symptoms: Reports: Fever/Chills, Loss of Appetite, Malaise, Nausea/ Vomiting, Weakness Right Knee Pain Score (Numeric/FACES): 6 - Related Data Allergies/Adverse Reactions: Allergies Allergy/AdvReac Type Severity Reaction Status Date / Time milk AdvReac Vomiting Verified 03/31/17 07:21 Home Medications: Home Meds Albuterol [Ventolin HFA] 2 puff INH ASDIRECTED PRN 03/30/17 [History] Past Medical History HEENT History: Reports: Impaired Vision Other HEENT History: glasses Cardiovascular History: Reports: SOB on Exertion Respiratory History: Reports: None, Other (See Below) Other Respiratory History: emphysema Other Gastrointestinal History: ulcerative cholitis Genitourinary History: Reports: None 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 Her baseline weight is 150 pounds. She was 89 when she had the bypass. Female Surgical History: Reports: Tubal Ligation Endocrine Surgical History: Reports: None Musculoskeletal Surgical History: Reports: None Social & Family History - Family History Family Medical History: Noncontributory - Tobacco Use Smoking Status *Q: Current Every Day Smoker Years of Tobacco use: 35 Packs/Tins Daily: 2 Used Tobacco, but Quit: No Second Hand Smoke Exposure: Yes - Caffeine Use Caffeine Use: Reports: Soda, Tea - Alcohol Use Days Per Week of Alcohol Use: 4 Number of Drinks Per Day: 6 Total Drinks Per Week: 24 Date of Last Drink: 03/28/17 Time of Last Drink: 20:00 - Recreational Drug Use Recreational Drug Use: No - Living Situation & Occupation Living situation: Reports: Occupation: Employed H&P Review of Systems - Review of Systems: Review Of Systems: See Below General: Reports: Fever, Chills, Malaise, Weakness, Fatigue HEENT: Reports: No Symptoms Pulmonary: Reports: Pleuritic Chest Pain, Cough, Sputum Cardiovascular: Reports: No Symptoms Gastrointestinal: Reports: No Symptoms Genitourinary: Reports: No Symptoms Musculoskeletal: Reports: No Symptoms Skin: Reports: No Symptoms Psychiatric: Reports: No Symptoms Neurological: Reports: No Symptoms Hematologic/Lymphatic: Reports: No Symptoms Immunologic: Reports: No Symptoms Exam - Exam Exam: See Below - Vital Signs Vital Signs: Last Vital Signs Temp 36.7 C 03/31/17 15:06 Pulse 71 03/31/17 15:06 Resp 18 03/31/17 15:06 BP 115/74 03/31/17 15:06 Pulse Ox 97 03/31/17 15:06 Weight: 76.702 kg - Exam Quality Assessment: Supplemental Oxygen, DVT Prophylaxis General: Alert, Oriented, Cooperative HEENT: Conjunctiva Clear, EOMI, Nares Patent, Pupils Equal, Pupils Reactive, PERRLA Neck: Trachea Midline Lungs: Normal Respiratory Effort Cardiovascular: Regular Rate, Regular Rhythm GI/Abdominal Exam: Normal Bowel Sounds, Soft, Non-Tender, No Organomegaly, No Distention (Female) Exam: Deferred Rectal (Female) Exam: Deferred Back Exam: Normal Inspection Extremities: Normal Inspection, Normal Range of Motion - Patient Data Result Diagrams: 03/30/17 22:22 03/31/17 12:45 *Q Meaningful Use (ADM) - VTE *Q VTE Criteria *Q: - Stroke *Q Stroke Criteria *Q: - AMI *Q AMI Criteria *Q: - Problem List (1) Tobacco dependence SNOMED Code(s): 65793042 ICD Code: F17.200 - NICOTINE DEPENDENCE, UNSPECIFIED, UNCOMPLICATED Status : Acute Current Visit: Yes (2) COPD (chronic obstructive pulmonary disease) SNOMED Code(s): 72030892 ICD Code: J44.9 - CHRONIC OBSTRUCTIVE PULMONARY DISEASE, UNSPECIFIED Status : Acute Current Visit: Yes Qualifiers: COPD type: unspecified COPD Qualified Code(s): J44.9 - Chronic obstructive pulmonary disease, unspecified (3) Hypokalemia due to inadequate potassium intake SNOMED Code(s): 08232895 ICD Code: E87.6 - HYPOKALEMIA Status: Acute Current Visit: Yes (4) Metabolic acidosis with increased anion gap and accumulation of organic acids SNOMED Code(s): 64347981 ICD Code: E87.2 - ACIDOSIS Status: Acute Current Visit: Yes (5) Nausea and vomiting SNOMED Code(s): 26852803 ICD Code: R11.2 - NAUSEA WITH VOMITING, UNSPECIFIED Status: Acute Current Visit: Yes Qualifiers: Vomiting type: bilious vomiting Qualified Code(s): R11.14 - Bilious vomiting (6) Pyelonephritis SNOMED Code(s): 19293848 ICD Code: N12 - TUBULO-INTERSTITIAL NEPHRITIS, NOT SPCF ACUTE OR CHRONIC Status: Acute Current Visit: Yes (7) Urinary tract infection SNOMED Code(s): 43059733 ICD Code: N39.0 - URINARY TRACT INFECTION, SITE NOT SPECIFIED Status: Acute Current Visit: Yes Qualifiers: Urinary tract infection type: acute cystitis Hematuria presence: without hematuria Qualified Code(s): N30.00 - Acute cystitis without hematuria Problem List Initiated/Reviewed/Updated: Yes Orders Last 24hrs: Active Orders 24 hr Category Date Time Status Acetaminophen [Tylenol] Med 03/31/17 16:09 Ordered 650 mg PO Q4H PRN Resuscitation Status Routine Resus Stat 03/31/17 14:37 Ordered Medication Orders Acetaminophen (Tylenol) 650 mg PO Q4H PRN PRN Reason: Pain/Fever Dextrose/Sodium Chloride (Dextrose 5%-1/2 Ns) 1,000 mls @ 300 mls/hr IV ASDIRECTED BHAVANI Last Admin: 03/31/17 10:52 Dose: 300 mls/hr Infusion: 03/31/17 10:46 Dose: 300 mls/hr Admin: 03/31/17 07:26 Dose: 300 mls/hr Assessment/Plan Comment:: Impression: Sepsis, improved with mixed picture UTI and respiratory symptoms Query CAP/Influenza, history of COPD AUTI Chronic Tobacco dependence Plan: IVF Rocephin 2 gm Qd Home meds Daily labs DVT/GI prophylaxis Consult PT/OT/CM as needed.
[2017-03-31] MEDS: Acetaminophen 325 MG Tab PO PRN ×2 (16:21→20:19)
[2017-03-31] MEDS ORDERED: Albuterol 0.083% 2.5 MG/3 ML Neb Soln NEB PRN (20:05)
[2017-03-31] MEDS ORDERED: Albuterol/Ipratropium 3.0-0.5 MG/3 ML Neb Soln NEB PRN (20:06)
[2017-03-31] MEDS ORDERED: hydrALAZINE 20 MG/ML SDV IVPUSH PRN (20:06)
[2017-03-31] MEDS ORDERED: Ondansetron 4 MG/2 ML SDV IVPUSH PRN (20:07)
[2017-03-31] MEDS ORDERED: Temazepam 7.5 MG Cap PO PRN (20:08)
[2017-03-31] MEDS ORDERED: [UNRECOGNIZED DRUG - OTHER] TOP PRN (20:29)
[2017-03-31] MEDS ORDERED: ASPERCREME TOP PRN (20:29)
[2017-04-01] MEDS: Acetaminophen 325 MG Tab PO PRN (00:11)
[2017-04-01] MEDS: Nicotine 21 MG/24 Hr Patch TRDERM SCH (09:40)
[2017-04-01] MEDS: Enoxaparin 40 MG/0.4 ML Syringe SUBCUT SCH (11:46)
--- NOTE | 2017-04-01 15:16 | PCM.PN ---
- General Info Date of Service: 04/01/17 Admission Dx/Problem (Free Text): Pyelonephritis, sepsis Subjective Update: In to see Natacha. She is sitting on the couch in her room. She has been ambulating around her room. No concerns overnight or today. Potassium and magnesium were low and will be supplemented. No SOB or chest pain. She reports some looser stools however this is somewhat normal for her as she has a hx/o gastric bypass. No CVA tenderness. Overall she is doing very well. Functional Status: Reports: Pain Controlled, Tolerating Diet, Ambulating, Urinating. Denies: New Symptoms - Review of Systems General: Reports: No Symptoms HEENT: Reports: No Symptoms Pulmonary: Reports: No Symptoms Cardiovascular: Reports: No Symptoms Gastrointestinal: Reports: No Symptoms Genitourinary: Reports: No Symptoms Musculoskeletal: Reports: No Symptoms Skin: Reports: No Symptoms Neurological: Reports: No Symptoms Psychiatric: Reports: No Symptoms - Patient Data Vitals - Most Recent: Last Vital Signs Temp 97.9 F 04/01/17 08:46 Pulse 62 04/01/17 08:46 Resp 18 04/01/17 08:46 BP 117/63 04/01/17 08:46 Pulse Ox 99 04/01/17 08:46 Weight - Most Recent: 168 lb 3.2 oz I&O - Last 24 Hours: Intake & Output 04/01/17 04/01/17 04/01/17 06:59 14:59 22:59 Intake Total 600 180 Balance 600 180 Lab Results Last 24 Hours: Laboratory Results - last 24 hr 04/01/17 04/01/17 04/01/17 Range/Units 06:02 06:22 06:22 WBC 5.31 (3.98-10.04) K/mm3 RBC 3.89 L (3.98-5.22) M/mm3 Hgb 11.1 L (11.2-15.7) gm/L Hct 35.3 (34.1-44.9) % MCV 90.7 (79.4-94.8) fl MCH 28.5 (25.6-32.2) pg MCHC 31.4 L (32.2-35.5) g/dl RDW Std Deviation 51.4 H (36.4-46.3) fL Plt Count 150 L (182-369) K/mm3 MPV 10.9 (9.4-12.3) fl Neut % (Auto) 56.7 (34.0-71.1) % Lymph % (Auto) 34.8 (19.3-51.7) % [place] % (Auto) 6.0 (4.7-12.5) % Eos % (Auto) 1.9 (0.7-5.8) Baso % (Auto) 0.4 (0.1-1.2) % Neut # (Auto) 3.01 (1.56-6.13) K/mm3 Lymph # (Auto) 1.85 (1.18-3.74) K/mm3 [place] # (Auto) 0.32 (0.24-0.36) K/mm3 Eos # (Auto) 0.10 (0.04-0.36) K/mm3 Baso # (Auto) 0.02 (0.01-0.08) K/mm3 Sodium 141 (136-145) mEq/L Potassium 3.3 L (3.5-5.1) mEq/L Chloride 107 (98-107) mEq/L Carbon Dioxide 26 (21-32) mEq/L Anion Gap 11.3 (5-15) BUN 4 L (7-18) mg/dL Creatinine 0.7 (0.55-1.02) mg/dL Est Cr Clr Drug Dosing 105.13 mL/min Estimated GFR (MDRD) > 60 (>60) mL/min BUN/Creatinine Ratio 5.7 L (14-18) Glucose 94 (74-106) mg/dL Lactic Acid 1.9 (0.4-2.0) mmol/L Calcium 8.7 (8.5-10.1) mg/dL Magnesium 1.3 L (1.8-2.4) mg/dl C-Reactive Protein 0.2 (<1.0) mg/dL Mycoplasma pneumon IgM Negative (NEGATIVE) Med Orders - Current: Current Medications Acetaminophen (Tylenol) 650 mg PO Q4H PRN PRN Reason: Pain/Fever Last Admin: 04/01/17 00:11 Dose: 650 mg Albuterol (Proventil Neb Soln) 2.5 mg NEB Q4HRRT PRN PRN Reason: Shortness of Breath Albuterol/Ipratropium (Duoneb 3.0-0.5 Mg/3 Ml) 3 ml NEB QID PRN PRN Reason: Shortness of Breath Enoxaparin Sodium (Lovenox) 40 mg SUBCUT DAILY [facility] Last Admin: 04/01/17 11:46 Dose: 40 mg Hydralazine HCl (Apresoline) 20 mg IVPUSH Q6H PRN PRN Reason: Hypertension Ceftriaxone Sodium 2 gm/ (Dextrose/Water) 100 mls @ 200 mls/hr IV Q24H [facility] Last Admin: 04/01/17 12:30 Dose: 200 mls/hr Potassium Chloride 10 meq/ (Premix) 100 mls @ 100 mls/hr IV Q1H [facility] Stop: 04/01/17 19:14 Magnesium Oxide (Magnesium Oxide) 400 mg PO BID ONE Stop: 04/01/17 15:16 Miscellaneous Information (Remove Patch) 1 ea TRDERM DAILY [facility] Nicotine (Habitrol) 21 mg TRDERM DAILY [facility] Last Admin: 04/01/17 09:40 Dose: 21 mg Ondansetron HCl (Zofran) 4 mg IVPUSH Q8H PRN PRN Reason: Nausea/Vomiting Aspercreme + Lidocaine Roll On Own Med 0 each TOP Q4H PRN PRN Reason: Pain Temazepam (Restoril) 7.5 mg PO BEDTIME PRN PRN Reason: Insomnia Discontinued Medications Acetaminophen (Tylenol) 975 mg PO NOW ONE Stop: 03/31/17 10:49 Last Admin: 03/31/17 10:52 Dose: 975 mg Albuterol/Ipratropium (Duoneb 3.0-0.5 Mg/3 Ml) 3 ml NEB ONETIME ONE Stop: 03/30/17 22:23 Last Admin: 03/30/17 22:39 Dose: 3 ml Dextrose/Sodium Chloride (Dextrose 5%-Normal Saline) 1,000 mls @ 999 mls/hr IV ASDIRECTED [facility] Last Admin: 03/31/17 02:15 Dose: 999 mls/hr Dextrose/Lactated Ringer's (Dextrose 5%-Lactated Ringers) 1,000 mls @ 999 mls/ hr IV ASDIRECTED [facility] Last Admin: 03/31/17 03:33 Dose: 999 mls/hr Potassium Chloride 10 meq/ (Premix) 100 mls @ 100 mls/hr IV ONETIME ONE Stop: 03/31/17 00:44 Last Admin: 03/30/17 23:52 Dose: 100 mls/hr Dextrose/Sodium Chloride (Dextrose 5%-Normal Saline) 1,000 mls @ 999 mls/min IV ASDIRECTED [facility] Levofloxacin/Dextrose 750 mg/ (Premix) 150 mls @ 100 mls/hr IV ONETIME ONE Stop: 03/31/17 03:05 Last Admin: 03/31/17 01:43 Dose: 100 mls/hr Potassium Chloride 10 meq/ (Premix) 100 mls @ 100 mls/hr IV ONETIME ONE Stop: 03/31/17 04:08 Last Admin: 03/31/17 03:23 Dose: 100 mls/hr Dextrose/Sodium Chloride (Dextrose 5%-1/2 Ns) 1,000 mls @ 300 mls/hr IV ASDIRECTED [facility] Last Admin: 03/31/17 10:52 Dose: 300 mls/hr Dextrose/Sodium Chloride (Dextrose 5%-Normal Saline) 1,000 mls @ 300 mls/hr IV ASDIRECTED [facility] Potassium Chloride 10 meq/ (Premix) 100 mls @ 100 mls/hr IV ONETIME ONE Stop: 03/31/17 08:29 Last Admin: 03/31/17 08:09 Dose: 100 mls/hr Lorazepam (Ativan) 1 mg IVPUSH ONETIME ONE Stop: 03/31/17 01:04 Last Admin: 03/31/17 01:14 Dose: 1 mg Ondansetron HCl (Zofran) 4 mg IVPUSH ONETIME ONE Stop: 03/30/17 22:33 Last Admin: 03/30/17 22:37 Dose: 4 mg - Exam Quality Assessment: DVT Prophylaxis General: Alert, Oriented, Cooperative, No Acute Distress HEENT: Pupils Equal, Pupils Reactive, EOMI, Mucous Membr. Moist/[place] Neck: Supple, Trachea Midline, No JVD Lungs: Clear to Auscultation, Normal Respiratory Effort, Decreased Breath Sounds Cardiovascular: Regular Rate, Regular Rhythm GI/Abdominal Exam: Normal Bowel Sounds, Soft, Non-Tender, No Organomegaly, No Distention, No Abnormal Bruit, No Mass, Pelvis Stable (Female) Exam: Deferred Back Exam: Normal Inspection, Full Range of Motion. No: CVA Tenderness (L), CVA Tenderness (R) Extremities: Normal Inspection, Normal Range of Motion, Non-Tender, No Pedal Edema, Normal Capillary Refill Peripheral Pulses: 2+: Radial (L), Radial (R), Posterior Tibial (L), Posterior Tibial (R), Dorsalis Pedis (L), Dorsalis Pedis (R) Skin: Warm, Dry, Intact Neurological: No New Focal Deficit Psy/Mental Status: Alert, Normal Affect, Normal Mood - Problem List & Annotations (1) Hypomagnesemia SNOMED Code(s): 844051116 Code(s): E83.42 - HYPOMAGNESEMIA Status: Acute Priority: High Current Visit: Yes (2) COPD (chronic obstructive pulmonary disease) SNOMED Code(s): 66341649 Code(s): J44.9 - CHRONIC OBSTRUCTIVE PULMONARY DISEASE, UNSPECIFIED Status : Acute Priority: High Current Visit: Yes Qualifiers: COPD type: unspecified COPD Qualified Code(s): J44.9 - Chronic obstructive pulmonary disease, unspecified (3) Hypokalemia due to inadequate potassium intake SNOMED Code(s): 04741610 Code(s): E87.6 - HYPOKALEMIA Status: Acute Priority: High Current Visit : Yes (4) Metabolic acidosis with increased anion gap and accumulation of organic acids SNOMED Code(s): 34457195 Code(s): E87.2 - ACIDOSIS Status: Resolved Priority: High Current Visit : Yes (5) Nausea and vomiting SNOMED Code(s): 10532166 Code(s): R11.2 - NAUSEA WITH VOMITING, UNSPECIFIED Status: Resolved Priority: Medium Current Visit: Yes Qualifiers: Vomiting type: bilious vomiting Qualified Code(s): R11.14 - Bilious vomiting (6) Pyelonephritis SNOMED Code(s): 90026429 Code(s): N12 - TUBULO-INTERSTITIAL NEPHRITIS, NOT SPCF ACUTE OR CHRONIC Status: Acute Priority: High Current Visit: Yes (7) Tobacco dependence SNOMED Code(s): 21577594 Code(s): F17.200 - NICOTINE DEPENDENCE, UNSPECIFIED, UNCOMPLICATED Status: Chronic Priority: Medium Current Visit: Yes (8) Urinary tract infection SNOMED Code(s): 12888679 Code(s): N39.0 - URINARY TRACT INFECTION, SITE NOT SPECIFIED Status: Acute Priority: High Current Visit: Yes Qualifiers: Urinary tract infection type: acute cystitis Hematuria presence: without hematuria Qualified Code(s): N30.00 - Acute cystitis without hematuria - Problem List Review Problem List Initiated/Reviewed/Updated: Yes - My Orders Last 24 Hours: My Active Orders 04/01/17 15:15 Magnesium Oxide 400 mg PO BID ONE Potassium Chloride [KCl 10 MEQ in Water 100 ML] 10 meq Premix Bag 1 bag IV Q1H - Plan Plan:: Impression: Sepsis, improved with mixed picture UTI and respiratory symptoms -Lactic acid improved, N&V resolved, neg blood cultures Query CAP/Influenza, history of COPD - Neg influenza and CXR AUTI - gram negative rods, sensitivities pending Chronic: Tobacco dependence hx/o gastric bypass Emphysema Ulcerative colitis Plan: IVF Rocephin 2 gm Qd - responding well Home meds Daily labs DVT/GI prophylaxis Consult PT/OT/CM as needed. Smoking cessation counseling Code Status: Full code, PCP: Marita Hagan, nurse practitioner at [facility] here in [place].
[2017-04-01] MEDS: Potassium Chloride 10 MEQ in Premix Bag 1 BAG IV SCH ×4 (16:07→20:25)
[2017-04-01] MEDS: Magnesium Oxide 400 MG Tab PO SCH ×2 (16:13→19:27)
--- NOTE | 2017-04-02 06:57 | PCM.DCSUM1 ---
Discharge Summary - Hospital Course Free Text/Narrative:: 47 year old female with symptoms of respiratory infection had an elevated lactic acid received over 5 liters in the ED along with Levoquin has greatly improved. She has greatly improved. The patient has a past medical history of COPD; she is a current tobacco user. Reportedly has a thirty six pack year history. The patient has not been feeling well for over 4 days with a low grade fever. It was associated with chills and a productive cough. She has experienced generalized weakness, malaise and a decreased appetite. UA was positive for AUTI, respiratory work also be pursue. She has been admitted to [facility]. - Discharge Data Discharge Date: 04/02/17 (admit date 03/31/17) Discharge Disposition: Home, Self-Care 01 Condition: Good - Discharge Diagnosis/Problem(s) (1) Pyelonephritis SNOMED Code(s): 72217044 ICD Code: N12 - TUBULO-INTERSTITIAL NEPHRITIS, NOT SPCF ACUTE OR CHRONIC Status: Acute Priority: High Current Visit: Yes (2) Urinary tract infection SNOMED Code(s): 05664904 ICD Code: N39.0 - URINARY TRACT INFECTION, SITE NOT SPECIFIED Status: Acute Priority: High Current Visit: Yes Qualifiers: Urinary tract infection type: acute cystitis Hematuria presence: without hematuria Qualified Code(s): N30.00 - Acute cystitis without hematuria (3) Hypokalemia due to inadequate potassium intake SNOMED Code(s): 43490341 ICD Code: E87.6 - HYPOKALEMIA Status: Acute Priority: High Current Visit: Yes (4) Tobacco dependence SNOMED Code(s): 26655769 ICD Code: F17.200 - NICOTINE DEPENDENCE, UNSPECIFIED, UNCOMPLICATED Status : Chronic Priority: Medium Current Visit: Yes (5) Hypomagnesemia SNOMED Code(s): 348818277 ICD Code: E83.42 - HYPOMAGNESEMIA Status: Acute Priority: High Current Visit: Yes (6) Metabolic acidosis with increased anion gap and accumulation of organic acids SNOMED Code(s): 39025872 ICD Code: E87.2 - ACIDOSIS Status: Resolved Priority: High Current Visit: Yes - Patient Summary/Data Operative Procedure(s) Performed: None Complications: None Consults: None Labs Pending at D/C: None Recommended Follow-up Testing/Procedures: Patient DC instructions: Recommend Smoking Cessation-- can call the [place] Quit Line at for information about assistance to quit smoking. Push fluids Follow up with PCP, Marita Hagan within one week of discharge. Planned Operative Procedure(s) after DC: None Hospital Course: Impression: Sepsis, improved with mixed picture UTI and respiratory symptoms -Lactic acid improved, N&V resolved, neg blood cultures Query CAP/Influenza, history of COPD - Neg influenza and CXR AUTI - gram negative rods, sensitivities pending Chronic: Tobacco dependence hx/o gastric bypass Emphysema Ulcerative colitis Plan: IVF Rocephin 2 gm Qd - responding well Home meds Daily labs DVT/GI prophylaxis Consult PT/OT/CM as needed. Smoking cessation counseling DC home today after next dose of IV abx, doing well. Code Status: Full code, PCP: Marita Hagan, nurse practitioner at [facility] here in [place]. - Patient Instructions Diet: Usual Diet as Tolerated, Drink 8-10+ Glasses/Day Activity: As Tolerated Showering/Bathing: May Shower Notify Provider of: Fever, Increased Pain, Nausea and/or Vomiting - Discharge Plan Prescriptions/Med Rec: Nicotine [Nicoderm Cq] 1 each TD DAILY #30 patch.td24 Sulfamethoxazole/Trimethoprim [Bactrim Ds Tablet] 1 each PO BID #20 tablet Home Medications: Home Meds Albuterol [Ventolin HFA] 2 puff INH ASDIRECTED PRN 03/30/17 [History] Acetaminophen [Tylenol] 650 mg PO Q4H PRN tablet 04/02/17 [Rx] Nicotine [Nicoderm Cq] 1 each TD DAILY #30 patch.td24 04/02/17 [Rx] Sulfamethoxazole/Trimethoprim [Bactrim Ds Tablet] 1 each PO BID #20 tablet 04/02 [Rx] Patient Handouts: Pyelonephritis, Adult, Urinary Tract Infection, Adult, Steps to Quit Smoking Forms: ED Department Discharge Referrals: PCP,None [Ordering Only Provider] - - Discharge Summary/Plan Comment DC Time >30 min.: Yes (40 min) - General Info Date of Service: 04/02/17 Admission Dx/Problem (Free Text: Pyelonephritis, sepsis Doing well, anxious and ready for DC home, likely this afternoon. Afebrile, VSS. Functional Status: Reports: Pain Controlled, Tolerating Diet, Ambulating, Urinating. Denies: New Symptoms - Review of Systems General: Reports: No Symptoms HEENT: Reports: No Symptoms Pulmonary: Reports: No Symptoms Cardiovascular: Reports: No Symptoms Gastrointestinal: Reports: No Symptoms Genitourinary: Reports: No Symptoms Musculoskeletal: Reports: No Symptoms Skin: Reports: No Symptoms Neurological: Reports: No Symptoms Psychiatric: Reports: No Symptoms - Patient Data Vitals - Most Recent: Last Vital Signs Temp 98.2 F 04/01/17 20:03 Pulse 75 04/01/17 20:03 Resp 18 04/01/17 20:03 BP 97/75 04/01/17 20:03 Pulse Ox 98 04/01/17 20:03 Weight - Most Recent: 168 lb 3.2 oz I&O - Last 24 hours: Intake & Output 04/01/17 04/01/17 04/02/17 14:59 22:59 06:59 Intake Total 180 100 Balance 180 100 Lab Results - Last 24 hrs: Laboratory Results - last 24 hr 04/01/17 04/01/17 04/01/17 Range/Units 06:02 06:22 06:22 WBC 5.31 (3.98-10.04) K/mm3 RBC 3.89 L (3.98-5.22) M/mm3 Hgb 11.1 L (11.2-15.7) gm/L Hct 35.3 (34.1-44.9) % MCV 90.7 (79.4-94.8) fl MCH 28.5 (25.6-32.2) pg MCHC 31.4 L (32.2-35.5) g/dl RDW Std Deviation 51.4 H (36.4-46.3) fL Plt Count 150 L (182-369) K/mm3 MPV 10.9 (9.4-12.3) fl Neut % (Auto) 56.7 (34.0-71.1) % Lymph % (Auto) 34.8 (19.3-51.7) % [place] % (Auto) 6.0 (4.7-12.5) % Eos % (Auto) 1.9 (0.7-5.8) Baso % (Auto) 0.4 (0.1-1.2) % Neut # (Auto) 3.01 (1.56-6.13) K/mm3 Lymph # (Auto) 1.85 (1.18-3.74) K/mm3 [place] # (Auto) 0.32 (0.24-0.36) K/mm3 Eos # (Auto) 0.10 (0.04-0.36) K/mm3 Baso # (Auto) 0.02 (0.01-0.08) K/mm3 Sodium 141 (136-145) mEq/L Potassium 3.3 L (3.5-5.1) mEq/L Chloride 107 (98-107) mEq/L Carbon Dioxide 26 (21-32) mEq/L Anion Gap 11.3 (5-15) BUN 4 L (7-18) mg/dL Creatinine 0.7 (0.55-1.02) mg/dL Est Cr Clr Drug Dosing 105.13 mL/min Estimated GFR (MDRD) > 60 (>60) mL/min BUN/Creatinine Ratio 5.7 L (14-18) Glucose 94 (74-106) mg/dL Lactic Acid 1.9 (0.4-2.0) mmol/L Calcium 8.7 (8.5-10.1) mg/dL Magnesium 1.3 L (1.8-2.4) mg/dl C-Reactive Protein 0.2 (<1.0) mg/dL Mycoplasma pneumon IgM Negative (NEGATIVE) 04/02/17 Range/Units 05:55 WBC 5.33 (3.98-10.04) K/mm3 RBC 4.01 (3.98-5.22) M/mm3 Hgb 11.4 (11.2-15.7) gm/L Hct 36.4 (34.1-44.9) % MCV 90.8 (79.4-94.8) fl MCH 28.4 (25.6-32.2) pg MCHC 31.3 L (32.2-35.5) g/dl RDW Std Deviation 51.4 H (36.4-46.3) fL Plt Count 127 L (182-369) K/mm3 MPV 10.8 (9.4-12.3) fl Neut % (Auto) 62.2 (34.0-71.1) % Lymph % (Auto) 29.3 (19.3-51.7) % [place] % (Auto) 6.0 (4.7-12.5) % Eos % (Auto) 2.1 (0.7-5.8) Baso % (Auto) 0.4 (0.1-1.2) % Neut # (Auto) 3.32 (1.56-6.13) K/mm3 Lymph # (Auto) 1.56 (1.18-3.74) K/mm3 [place] # (Auto) 0.32 (0.24-0.36) K/mm3 Eos # (Auto) 0.11 (0.04-0.36) K/mm3 Baso # (Auto) 0.02 (0.01-0.08) K/mm3 Sodium (136-145) mEq/L Potassium (3.5-5.1) mEq/L Chloride (98-107) mEq/L Carbon Dioxide (21-32) mEq/L Anion Gap (5-15) BUN (7-18) mg/dL Creatinine (0.55-1.02) mg/dL Est Cr Clr Drug Dosing mL/min Estimated GFR (MDRD) (>60) mL/min BUN/Creatinine Ratio (14-18) Glucose (74-106) mg/dL Lactic Acid (0.4-2.0) mmol/L Calcium (8.5-10.1) mg/dL Magnesium (1.8-2.4) mg/dl C-Reactive Protein (<1.0) mg/dL Mycoplasma pneumon IgM (NEGATIVE) KAREN Results - Last 24 hrs: Microbiology 03/31/17 23:58 Influenza Types A & B (PCR) - Final Nasopharynx, Right Med Orders - Current: Current Medications Acetaminophen (Tylenol) 650 mg PO Q4H PRN PRN Reason: Pain/Fever Last Admin: 04/01/17 00:11 Dose: 650 mg Albuterol (Proventil Neb Soln) 2.5 mg NEB Q4HRRT PRN PRN Reason: Shortness of Breath Albuterol/Ipratropium (Duoneb 3.0-0.5 Mg/3 Ml) 3 ml NEB QID PRN PRN Reason: Shortness of Breath Enoxaparin Sodium (Lovenox) 40 mg SUBCUT DAILY [facility] Last Admin: 04/01/17 11:46 Dose: 40 mg Hydralazine HCl (Apresoline) 20 mg IVPUSH Q6H PRN PRN Reason: Hypertension Ceftriaxone Sodium 2 gm/ (Dextrose/Water) 100 mls @ 200 mls/hr IV Q24H [facility] Last Admin: 04/01/17 12:30 Dose: 200 mls/hr Miscellaneous Information (Remove Patch) 1 ea TRDERM DAILY [facility] Nicotine (Habitrol) 21 mg TRDERM DAILY [facility] Last Admin: 04/01/17 09:40 Dose: 21 mg Ondansetron HCl (Zofran) 4 mg IVPUSH Q8H PRN PRN Reason: Nausea/Vomiting Aspercreme + Lidocaine Roll On Own Med 0 each TOP Q4H PRN PRN Reason: Pain Temazepam (Restoril) 7.5 mg PO BEDTIME PRN PRN Reason: Insomnia Discontinued Medications Acetaminophen (Tylenol) 975 mg PO NOW ONE Stop: 03/31/17 10:49 Last Admin: 03/31/17 10:52 Dose: 975 mg Albuterol/Ipratropium (Duoneb 3.0-0.5 Mg/3 Ml) 3 ml NEB ONETIME ONE Stop: 03/30/17 22:23 Last Admin: 03/30/17 22:39 Dose: 3 ml Dextrose/Sodium Chloride (Dextrose 5%-Normal Saline) 1,000 mls @ 999 mls/hr IV ASDIRECTED [facility] Last Admin: 03/31/17 02:15 Dose: 999 mls/hr Dextrose/Lactated Ringer's (Dextrose 5%-Lactated Ringers) 1,000 mls @ 999 mls/ hr IV ASDIRECTED [facility] Last Admin: 03/31/17 03:33 Dose: 999 mls/hr Potassium Chloride 10 meq/ (Premix) 100 mls @ 100 mls/hr IV ONETIME ONE Stop: 03/31/17 00:44 Last Admin: 03/30/17 23:52 Dose: 100 mls/hr Dextrose/Sodium Chloride (Dextrose 5%-Normal Saline) 1,000 mls @ 999 mls/min IV ASDIRECTED [facility] Levofloxacin/Dextrose 750 mg/ (Premix) 150 mls @ 100 mls/hr IV ONETIME ONE Stop: 03/31/17 03:05 Last Admin: 03/31/17 01:43 Dose: 100 mls/hr Potassium Chloride 10 meq/ (Premix) 100 mls @ 100 mls/hr IV ONETIME ONE Stop: 03/31/17 04:08 Last Admin: 03/31/17 03:23 Dose: 100 mls/hr Dextrose/Sodium Chloride (Dextrose 5%-1/2 Ns) 1,000 mls @ 300 mls/hr IV ASDIRECTED [facility] Last Admin: 03/31/17 10:52 Dose: 300 mls/hr Dextrose/Sodium Chloride (Dextrose 5%-Normal Saline) 1,000 mls @ 300 mls/hr IV ASDIRECTED [facility] Potassium Chloride 10 meq/ (Premix) 100 mls @ 100 mls/hr IV ONETIME ONE Stop: 03/31/17 08:29 Last Admin: 03/31/17 08:09 Dose: 100 mls/hr Potassium Chloride 10 meq/ (Premix) 100 mls @ 100 mls/hr IV Q1H [facility] Stop: 04/01/17 19:14 Last Admin: 04/01/17 20:25 Dose: 100 mls/hr Lorazepam (Ativan) 1 mg IVPUSH ONETIME ONE Stop: 03/31/17 01:04 Last Admin: 03/31/17 01:14 Dose: 1 mg Magnesium Oxide (Magnesium Oxide) 400 mg PO Q4H [facility] Stop: 04/01/17 19:16 Last Admin: 04/01/17 19:27 Dose: 400 mg Ondansetron HCl (Zofran) 4 mg IVPUSH ONETIME ONE Stop: 03/30/17 22:33 Last Admin: 03/30/17 22:37 Dose: 4 mg - Exam Quality Assessment: Reports: DVT Prophylaxis General: Reports: Alert, Oriented, Cooperative, No Acute Distress HEENT: Reports: Pupils Equal, EOMI, Mucous Membr. Moist/[place] Neck: Reports: Supple Lungs: Reports: Clear to Auscultation, Normal Respiratory Effort, Decreased Breath Sounds Cardiovascular: Reports: Regular Rate, Regular Rhythm GI/Abdominal Exam: Normal Bowel Sounds, Soft, Non-Tender (Female) Exam: Deferred Rectal (Female) Exam: Deferred Extremities: Normal Inspection, No Pedal Edema, Normal Capillary Refill Neurological: Reports: No New Focal Deficit Psy/Mental Status: Reports: Alert, Normal Affect, Normal Mood *Q Meaningful Use (DIS) - VTE *Q VTE Criteria *Q: - Stroke *Q Stroke Criteria *Q: - AMI *Q AMI Criteria *Q:
[2017-04-02 07:38] VITALS: BP 128/39
[2017-04-02] MEDS: Nicotine 21 MG/24 Hr Patch TRDERM SCH (09:47)
[2017-04-02] MEDS: Enoxaparin 40 MG/0.4 ML Syringe SUBCUT SCH (09:51)
== END 2017-04-02 11:15 | disposition home or self-care (01) | DRG 871 ==
LOC: JD.ED 21:49 → INTOOBSV 03-31 13:04 → UNDOADMOB 03-31 13:04 → JD.MS 03-31 13:04 → OBSVTOIN 03-31 13:58
PROVIDERS: ADMIT Internal Medicine Cardiovascular Disease; ATTEND Internal Medicine Cardiovascular Disease
DX: A41.9 Sepsis, unspecified organism (principal); J11.00 Influenza due to unidentified influenza virus with unspecified type of pneumonia; N12 Tubulo-interstitial nephritis, not specified as acute or chronic; N39.0 Urinary tract infection, site not specified; E87.2 Acidosis; K51.90 Ulcerative colitis, unspecified, without complications; E87.6 Hypokalemia; F17.200 Nicotine dependence, unspecified, uncomplicated; E83.42 Hypomagnesemia; J44.9 Chronic obstructive pulmonary disease, unspecified; Z91.011 Allergy to milk products; H54.7 Unspecified visual loss
CPT/HCPCS: 36415; 71045; 71045-26; 80048; 80053; 81001; 82009; 83605; 83690; 83735; 83930; 84484; 85025; 86140; 86738; 87040; 87086; 87088; 87186; 87502; 87503; 87804; 87899; 94640; 96361; 96365; 96366; 96367; 96375; 99285; 99285-25; A9270-GY; G0480; J0696; J1650; J1956; J2060; J2405; J3480; J7042; J7060

== ENCOUNTER 2017-05-11 12:59 | Emergency (ER) | payer OTHER, SELFPAY ==
[2017-05-11 13:11] VITALS: BP 105/71
--- NOTE | 2017-05-11 13:24 | EDM.PDOC ---
ED HPI GENERAL MEDICAL PROBLEM - General Chief Complaint: Respiratory Problem Stated Complaint: SOB Time Seen by Provider: 05/11/17 13:16 Source of Information: Reports: Patient History Limitations: Reports: No Limitations - History of Present Illness INITIAL COMMENTS - FREE TEXT/NARRATIVE: 47-year-old female attends the ED with chief complaint of left precordial chest pressure pain discomfort which is constant and getting worse over the last 48 hours. No associated fever chills although she did feel warm during the night and had to put covers on and off throughout the night. Denies much in the way of cough or sputum production. She feels like she can't get a full deep breath. She has known COPD. She has a metered-dose inhaler which has not brought her any relief but she is only used it a couple of times. She feels nauseated and has not eaten yet today. The thought of eating makes her more nauseated. She's had no vomiting or diarrhea. She's also decreased her smoking intake as it doesn 't taste as good as normal. She is aware of pain in the left precordial chest on palpation particularly over the fourth and fifth ribs that seems to radiate into the axilla. There is no pleuritic component to the pain. She doesn't feel that she is wheezing at all. Vital signs reveal O2 sats of 100% on room air. Respiratory rate is 18. She reports she was seen in the [place] [facility] with a painful lesion in left lower leg which was felt to be superficial thrombophlebitis. Treatment was conservative with anti-inflammatories and heat packs and it seemed to dissipate. The leg never did swell badly. No history of previous DVT. Onset: Gradual Onset Date: 05/09/17 (Started Friday afternoon and is progressively worsened. It is staying in the left precordial chest.) Duration: Day(s): Location: Reports: Chest (Left precordial chest rating towards the left exam.) Quality: Reports: Ache, Pressure Severity: Moderate Improves with: Reports: Rest Worsens with: Reports: Other, Movement Context: Reports: Other. Denies: Activity, Exercise (CC little worse with deep breathing), Lifting, Sick Contact, Trauma Associated Symptoms: Reports: Chest Pain (Feels like she can't get a full deep breath.), Cough (Spontaneous occurrence), Loss of Appetite, Malaise, Nausea/ Vomiting, Shortness of Breath. Denies: No Other Symptoms, Confusion ( See history of present illness), cough w sputum ( nonproductive), Diaphoresis, Rash (Nausea without vomiting), Seizure, Weakness Treatments MEDICAL FEE CLERK: Reports: Other (see below) (Tried her meter dose inhaler which is pro-air with no relief.) Left Chest Pain Score (Numeric/FACES): 7 - Related Data Allergies Allergy/AdvReac Type Severity Reaction Status Date / Time milk AdvReac Vomiting Verified 05/11/17 13:10 Home Meds: Home Meds Albuterol [Ventolin HFA] 2 puff INH ASDIRECTED PRN 03/30/17 [History] Acetaminophen [Tylenol] 650 mg PO Q4H PRN tablet 04/02/17 [Rx] Past Medical History HEENT History: Reports: Impaired Vision Other HEENT History: glasses Cardiovascular History: Reports: SOB on Exertion Respiratory History: Reports: COPD (Not on home oxygen.), Other (See Below) Other Respiratory History: emphysema Other Gastrointestinal History: uncerative colitis--had gastric bypass surgery 22 years ago. Has lost 150 pounds and is maintained this weight. Genitourinary History: Reports: None PALEOBOTANIST History: Reports: Musculoskeletal History: Reports: None Psychiatric History: Reports: None Endocrine/Metabolic History: Reports: None Immunologic History: Reports: None Oncologic (Cancer) History: Reports: None - Past Surgical History HEENT Surgical History: Reports: None GI Surgical History: Reports: Other (See Below) Other GI Surgeries/Procedures: gastric bypass--[place] procedure greater than 20 years ago. Her baseline weight is 150 pounds. She was 89 when she had the bypass. Female Surgical History: Reports: Tubal Ligation Endocrine Surgical History: Reports: None Musculoskeletal Surgical History: Reports: None Social & Family History - Family History Family Medical History: Noncontributory - Tobacco Use Smoking Status *Q: Current Every Day Smoker Tobacco Use Within Last Twelve Months: Cigarettes (pack per day.) Years of Tobacco use: 36 Packs/Tins Daily: 1 Used Tobacco, but Quit: No Second Hand Smoke Exposure: Yes - Caffeine Use Caffeine Use: Reports: Tea - Alcohol Use Days Per Week of Alcohol Use: 2 Number of Drinks Per Day: 2 Total Drinks Per Week: 4 - Recreational Drug Use Recreational Drug Use: No - Living Situation & Occupation Living situation: Reports: Occupation: Employed ED ROS GENERAL - Review of Systems Review Of Systems: See Below Constitutional: Reports: Fever (Objective fever and chills.), Malaise, Weakness ( Current during the night last night.), Fatigue, Decreased Appetite, Weight Loss HEENT: Reports: Glasses, Other Respiratory: Reports: Shortness of Breath (Has poor vision.), Cough, Sputum ( Smoker's cough.). Denies: Wheezing, Pleuritic Chest Pain, Hemoptysis ( Sputum no worse than normal) Cardiovascular: Reports: Chest Pain, Dyspnea on Exertion (Chronically). Denies : Blood Pressure Problem (Left precordial chest pressure discomfort 2 days), Claudication, Edema, Lightheadedness, Orthopnea Endocrine: Reports: Fatigue GI/Abdominal: Reports: Decreased Appetite (Without vomiting), Nausea. Denies: Abdominal Pain : Reports: No Symptoms, Other (Was last admitted to hospital on every the 12th with a Escherichia coli urinary tract infection. It was sensitive to all antibiotics) Skin: Reports: No Symptoms Neurological: Reports: No Symptoms Psychiatric: Reports: No Symptoms Hematologic/Lymphatic: Reports: No Symptoms Immunologic: Reports: No Symptoms ED EXAM, GENERAL - Physical Exam Exam: See Below Exam Limited By: No Limitations General Appearance: Alert, WD/WN, Mild Distress (Appears uncomfortable. Slightly palate in color. I can smell ketones on her breath.) Eye Exam: Bilateral Eye: Normal Inspection (No jaundice.) Ears: Normal TMs Throat/Mouth: Normal Inspection, Normal Oropharynx (Tongue is dry and coated.), Other. No: Normal Lips, Normal Teeth Head: Atraumatic, Normocephalic Neck: Normal Inspection, Supple, Non-Tender, Full Range of Motion. No: Carotid Bruit, Lymphadenopathy (L), Lymphadenopathy (R) Respiratory/Chest: No Respiratory Distress, Lungs Clear, Normal Breath Sounds, No Accessory Muscle Use, Other (Patient does have chest wall pain particularly left precordial chest ribs 34 and 5 are exquisitely tender in the midclavicular line. This extends into the left exit to the mid axillary line. Skin shows no evidence of a rash to suggest shingles.). No: Rales, Rhonchi, Wheezing Cardiovascular: Normal Peripheral Pulses, Regular Rate, Rhythm, No Edema, No Gallop, No Murmur Peripheral Pulses: 2+: Posterior Tibial (L), Posterior Tibial (R), Dorsalis Pedis (L), Dorsalis Pedis (R) GI/Abdominal: Normal Bowel Sounds, Soft, Non-Tender, No Organomegaly, No Distention, No Abnormal Bruit, No Mass, Other (Abdomen revealed reveals excessive soft tissues since she's had gastric bypass surgery.) Back Exam: Normal Inspection, Full Range of Motion. No: CVA Tenderness (L), CVA Tenderness (R) Extremities: Normal Inspection, Normal Range of Motion, Non-Tender, No Pedal Edema, Normal Capillary Refill Neurological: Alert, Oriented, CN II-XII Intact, Normal Cognition, Normal Gait Psychiatric: Normal Affect, Normal Mood Skin Exam: Warm, Dry, Intact, Normal Color, No Rash EKG INTERPRETATION EKG Date: 05/11/17 Time: 13:30 Rhythm: NSR Rate (Beats/Min): 86 [place]: LAD-Left [place] Deviation (-52.) P-Wave: Enlarged ([place] left atrial enlargement.) QRS: Other (There are Q waves V1 and V2 and V3 compatible with an old anteroseptal myocardial infarction. There is poor R-wave progression with late transition. Decreased voltage in the precordial leads. There are also Q waves in leads 3 and aVF compatible with an old inferior wall myocardial infarction.) ST-T: Other (T-wave changes with flattening particularly noted in aVL.) QT: Prolonged (QT is moderately prolonged at 533.) EKG Interpretation Comments: Abnormal ECG Course - Vital Signs Last Recorded V/S: Last Vital Signs Temp 36.3 C 05/11/17 13:03 Pulse 90 05/11/17 13:03 Resp 18 05/11/17 13:03 BP 105/71 05/11/17 13:03 Pulse Ox 100 05/11/17 13:03 - Orders/Labs/Meds Orders: Active Orders 24 hr Category Date Time Status EKG Documentation Completion [RC] STAT Care 05/11/17 13:24 Active EKG Documentation Completion [RC] STAT Care 05/11/17 16:26 Active Chest 1V Frontal [CR] Stat Exams 05/11/17 13:24 Taken Labs: Laboratory Tests 03/25/18 03/25/18 03/25/18 Range/Units 13:15 13:15 13:15 WBC 8.10 (3.98-10.04) K/mm3 RBC 4.90 (3.98-5.22) M/mm3 Hgb 14.0 (11.2-15.7) gm/L Hct 41.5 (34.1-44.9) % MCV 84.7 (79.4-94.8) fl MCH 28.6 (25.6-32.2) pg MCHC 33.7 (32.2-35.5) g/dl RDW Std Deviation 47.5 H (36.4-46.3) fL Plt Count 205 (182-369) K/mm3 MPV 10.6 (9.4-12.3) fl Neutrophils % (Manual) 82 H (40-60) % Band Neutrophils % 0 (0-10) % Lymphocytes % (Manual) 11 L (20-40) % Atypical Lymphs % 0 % Monocytes % (Manual) 6 (2-10) % Eosinophils % (Manual) 0 L (0.7-5.8) % Basophils % (Manual) 1 (0.1-1.2) Platelet Estimate Adequate Plt Morphology Comment Normal RBC Morph Comment Normal PT 10.5 (8.0-13.0) SECONDS INR 0.98 D-Dimer, Quantitative (0.19-0.59) mg/L Sodium 132 L (136-145) mEq/L Potassium 3.9 (3.5-5.1) mEq/L Chloride 94 L (98-107) mEq/L Carbon Dioxide 20 L (21-32) mEq/L Anion Gap 21.9 H (5-15) BUN 6 L (7-18) mg/dL Creatinine 0.6 (0.55-1.02) mg/dL Est Cr Clr Drug Dosing 121.82 mL/min Estimated GFR (MDRD) > 60 (>60) mL/min BUN/Creatinine Ratio 10.0 L (14-18) Glucose 109 H (74-106) mg/dL Calcium 9.7 (8.5-10.1) mg/dL Magnesium 1.4 L (1.8-2.4) mg/dl Total Bilirubin 1.3 H (0.2-1.0) mg/dL AST 75 H (15-37) U/L ALT 66 H (14-59) U/L Alkaline Phosphatase 122 H (46-116) U/L CK-MB (CK-2) 1.2 (0-3.6) ng/ml Troponin I 0.184 H* (0.00-0.056) ng/mL C-Reactive Protein 2.5 H* (<1.0) mg/dL NT-Pro-B Natriuret Pep (0-125) pg/mL Total Protein 7.3 (6.4-8.2) g/dl Albumin 3.9 (3.4-5.0) g/dl Globulin 3.4 gm/dL Albumin/Globulin Ratio 1.2 (1-2) Lipase (73-393) U/L Ketones (0.0-0.3) mM 05/11/17 05/11/17 05/11/17 Range/Units 13:15 13:15 13:15 WBC (3.98-10.04) K/mm3 RBC (3.98-5.22) M/mm3 Hgb (11.2-15.7) gm/L Hct (34.1-44.9) % MCV (79.4-94.8) fl MCH (25.6-32.2) pg MCHC (32.2-35.5) g/dl RDW Std Deviation (36.4-46.3) fL Plt Count (182-369) K/mm3 MPV (9.4-12.3) fl Neutrophils % (Manual) (40-60) % Band Neutrophils % (0-10) % Lymphocytes % (Manual) (20-40) % Atypical Lymphs % % Monocytes % (Manual) (2-10) % Eosinophils % (Manual) (0.7-5.8) % Basophils % (Manual) (0.1-1.2) Platelet Estimate Plt Morphology Comment RBC Morph Comment PT (8.0-13.0) SECONDS INR D-Dimer, Quantitative 1.93 H (0.19-0.59) mg/L Sodium (136-145) mEq/L Potassium (3.5-5.1) mEq/L Chloride (98-107) mEq/L Carbon Dioxide (21-32) mEq/L Anion Gap (5-15) BUN (7-18) mg/dL Creatinine (0.55-1.02) mg/dL Est Cr Clr Drug Dosing mL/min Estimated GFR (MDRD) (>60) mL/min BUN/Creatinine Ratio (14-18) Glucose (74-106) mg/dL Calcium (8.5-10.1) mg/dL Magnesium (1.8-2.4) mg/dl Total Bilirubin (0.2-1.0) mg/dL AST (15-37) U/L ALT (14-59) U/L Alkaline Phosphatase (46-116) U/L CK-MB (CK-2) (0-3.6) ng/ml Troponin I (0.00-0.056) ng/mL C-Reactive Protein (<1.0) mg/dL NT-Pro-B Natriuret Pep 678 H (0-125) pg/mL Total Protein (6.4-8.2) g/dl Albumin (3.4-5.0) g/dl Globulin gm/dL Albumin/Globulin Ratio (1-2) Lipase (73-393) U/L Ketones 2.24 (0.0-0.3) mM //18 Range/Units 13:15 WBC (3.98-10.04) K/mm3 RBC (3.98-5.22) M/mm3 Hgb (11.2-15.7) gm/L Hct (34.1-44.9) % MCV (79.4-94.8) fl MCH (25.6-32.2) pg MCHC (32.2-35.5) g/dl RDW Std Deviation (36.4-46.3) fL Plt Count (182-369) K/mm3 MPV (9.4-12.3) fl Neutrophils % (Manual) (40-60) % Band Neutrophils % (0-10) % Lymphocytes % (Manual) (20-40) % Atypical Lymphs % % Monocytes % (Manual) (2-10) % Eosinophils % (Manual) (0.7-5.8) % Basophils % (Manual) (0.1-1.2) Platelet Estimate Plt Morphology Comment RBC Morph Comment PT (8.0-13.0) SECONDS INR D-Dimer, Quantitative (0.19-0.59) mg/L Sodium (136-145) mEq/L Potassium (3.5-5.1) mEq/L Chloride (98-107) mEq/L Carbon Dioxide (21-32) mEq/L Anion Gap (5-15) BUN (7-18) mg/dL Creatinine (0.55-1.02) mg/dL Est Cr Clr Drug Dosing mL/min Estimated GFR (MDRD) (>60) mL/min BUN/Creatinine Ratio (14-18) Glucose (74-106) mg/dL Calcium (8.5-10.1) mg/dL Magnesium (1.8-2.4) mg/dl Total Bilirubin (0.2-1.0) mg/dL AST (15-37) U/L ALT (14-59) U/L Alkaline Phosphatase (46-116) U/L CK-MB (CK-2) (0-3.6) ng/ml Troponin I (0.00-0.056) ng/mL C-Reactive Protein (<1.0) mg/dL NT-Pro-B Natriuret Pep (0-125) pg/mL Total Protein (6.4-8.2) g/dl Albumin (3.4-5.0) g/dl Globulin gm/dL Albumin/Globulin Ratio (1-2) Lipase 194 (73-393) U/L Ketones (0.0-0.3) mM Meds: Medications Discontinued Medications Generic Name Dose Route Start Last Admin Trade Name Freq PRN Reason Stop Dose Admin Aspirin 324 mg 05/11/17 16:12 05/11/17 16:19 Aspirin PO 05/11/17 16:13 324 mg ONETIME ONE Administration Enoxaparin Sodium 70 mg 05/11/17 16:22 05/11/17 16:38 Lovenox SUBCUT 05/11/17 16:23 70 mg ONETIME ONE Administration Furosemide 40 mg 05/11/17 16:41 05/11/17 17:20 Lasix IVPUSH 05/11/17 16:42 40 mg NOW ONE Administration Dextrose/Sodium Chloride 1,000 mls @ 500 mls/hr 05/11/17 13:30 05/11/17 13:37 Dextrose 5%-Normal Saline IV 500 mls/hr ASDIRECTED BHAVANI Administration Dextrose/Sodium Chloride 1,000 mls @ 150 mls/hr 05/11/17 16:15 05/11/17 16:20 Dextrose 5%-Normal Saline IV 150 mls/hr ASDIRECTED BHAVANI Administration Nitroglycerin/Dextrose 25 mg in 250 mls @ 6 mls/hr 05/11/17 16:15 Nitroglycerin 25 Mg/D5w 250 Ml IV TITRATE BHAVANI 10 MCG/MIN Thiamine HCl 100 mg/ Sodium 101 mls @ 202 mls/hr 05/11/17 16:40 05/11/17 17: 19 Chloride IV 05/11/17 16:41 202 mls/hr ONETIME ONE Administration Iopamidol 100 ml 05/11/17 15:05 05/11/17 15:31 Isovue-370 (76%) IVPUSH 05/11/17 15:06 100 ml ONETIME ONE Administration Ketorolac Tromethamine 30 mg 05/11/17 13:30 Toradol IVPUSH ONETIME BHAVANI Ondansetron HCl 4 mg 05/11/17 13:26 05/11/17 13:38 Zofran IVPUSH 05/11/17 13:27 4 mg ONETIME ONE Administration - Radiology Interpretation Free Text/Narrative:: 47-year-old female presents to the ED with a 2 day history of left precordial chest pressure discomfort which is constant. It radiates towards the left axilla. She appreciates tenderness on palpation of her left anterior ribs. Denies any falls or trauma to this area recently. Is like she can't get a full deep breath. She has a history of COPD due to cigarette smoking has a 36-pack- year history. She denies any worsening of her smoker's cough. No fever or chills although she was slightly warm last night and does feel warm to palpation on exam. Vital signs are stable with O2 sats of 100% on room air and respiratory to 18. However ECG done by triage nurse suggests an old inferior wall as well as anteroseptal wall myocardial infarction. Therefore this is worrisome that she could have underlying coronary disease. Plan routine labs including d-dimer and cardiac markers and BNP to be done. One view chest x-ray. She is nauseated and I can smell ketones on her breath. IV will be D5 normal saline at 500 mils per hour. Given Zofran 4 mg IV for nausea relief in spite of having a significantly prolonged QT interval. Repeat urinalysis be done as her last hospital admission was for an Escherichia coli upper urinary tract infection sensitive to all antibiotics. She currently has no signs or symptoms of urinary tract infection. She does indeed have significant chest wall pain on palpation of ribs 34 and 5 left precordial chest that radiates towards the left midaxillary line. He is to be the source of her pain. I will give her Toradol 30 mg IV for pain relief. - Re-Assessments/Exams Free Text/Narrative Re-Assessment/Exam: 05/11/17 15:52: Labs reveal a white count of 8.10 with 82% neutrophils but no bands. Hemoglobin is 14.0 with hematocrit of 41.5. Platelet count 205,000. PT was 10.5 with an INR of 0.98. D-dimer is elevated at 1.93. Sodium is 132 with a potassium of 3.9. Chloride 94 with a bicarbonate of 20. Anion gap is elevated at 21.9. BUN is 6 with a creatinine of 0.6. Glucose 109. Calcium 9.7. Magnesium low at 1.4. Total bilirubin is elevated is at 1.3. AST is elevated to 75 ALT elevated at 66 phosphatase also mildly elevated 122. CK-MB fraction is 1.2. Troponin I is already elevated at 0.184 reactive protein is 2.5 BNP is elevated at 678. Lipase normal at 194. Serum ketones elevated at 2.24. On further questioning the patient does indeed drink alcohol. She states she had a sixpack on Friday night and a sixpack yesterday and hasn't been eating all that well..Daughter in the room states she eats like a spiral. His would account for her metabolic acidosis and alcohol-induced ketosis. I suspect she drinks more than she tells us. He is sober at this time however. Her ECG is definitely abnormal and the only one I have to compare to his one from August 2014. The Q waves in the anterior septal wall as well as the inferior wall were not present at that time. Patient can't remember having any severe chest pain in the last 3 years. The elevated d-dimer suggest the possibility of pulmonary embolism and CT pulmonary and grandmother for be carried out. 05/11/17 16:45 Free Text/Narrative Re-Assessment/Exam: 05/11/17 15:52 Labs reveal a white count of 8.10 with 82% neutrophils but no bands. Hemoglobin is 14.0 with hematocrit of 41.5. Platelet count 205,000. PT was 10.5 with an INR of 0.98. D-dimer is elevated at 1.93. Sodium is 132 with a potassium of 3.9. Chloride 94 with a bicarbonate of 20. Anion gap is elevated at 21.9. BUN is 6 with a creatinine of 0.6. Glucose 109. Calcium 9.7. Magnesium low at 1.4. Total bilirubin is elevated is at 1.3. AST is elevated to 75 ALT elevated at 66 phosphatase also mildly elevated 122. CK-MB fraction is 1.2. Troponin I is already elevated at 0.184 reactive protein is 2.5 BNP is elevated at 678. Lipase normal at 194. Serum ketones elevated at 2.24. Chest x-ray reveals a normal cardiac silhouette but slightly hyperinflated lung costa with apparent scarring perhaps in the left lingula and right base. No pneumonia is evident and there is no abnormalities of the visualized ribs. 05/11/17 15:52 CT pulmonary angiogram has been completed. On my assessment I do not see any evidence of pulmonary embolism. Cardiac silhouette appears normal with good filling. The visualized portions of the lungs do reveal areas of emphysematous change with no large bullae evident.. There is slight pericardial thickening within the anterior inferior pericardium. Other portions of the pericardium appear within normal limits. There is mild fatty infiltration of the liver several low-density areas are felt compatible with cholesterol gallstones within the gallbladder. There is a small parenchymal density within the left upper chest most likely representing an area of scarring. Very slight spiculation is seen within this finding and follow-up CT is recommended. Small subpleural nodule noted within the right middle lobe measuring around 6 mm. There is slight parenchymal density seen within both lung bases most likely representing scarring. There is minimal scarring felt to be present within the lingula as well. Impression 2 findings within the chest for which follow-up is recommended noncontrast chest CT recommended in 9 months time be January 2018. Spoke with the patient at length about the findings suggesting possibility of a recent myocardial infarction. With a normal CK-MB fraction and a troponin mildly elevated at suggest something may have happened 3 -4 days ago. She reports chest pain has been present only for the last 2 days. I therefore will discuss case with cardiology in [place] at [facility] with a view to sending her therefore pulmonary angiogram in sorting out as to etiology of her abnormal ECG. She will have aspirin 324 mg chewed. Us either heparin or Lovenox treatment with the glove machine operator. 05/11/17 16:35: Spoke with Dr. Fernandes radiologist at [facility] and he did not have a preference for either heparin or Lovenox. She will therefore be given Lovenox 1 mg/kg which is 70 mg subcutaneous now. I was going to start a low-dose nitroglycerin drip but her blood pressure is 84-94 systolic and therefore she would not tolerate this. Repeat ECG is unchanged from the first indicating suspect old anteroseptal and inferior wall myocardial infarction. I will give her Lasix 40 mg IV due to elevated BNP and the need for fluids that she requires to correct her metabolic acidosis which is alcohol- induced ketosis clinically. I spoke with Dr. Val medranoist who is accepted care of this patient she will be admitted to the telemetry unit. Departure - Departure Time of Disposition: 17:50 Disposition: DC/Tfer to Acute Hospital 02 Condition: Fair Clinical Impression: Anterior chest wall pain, Abnormal resting ECG findings, Elevated troponin I measurement, Hyponatremia, Alcohol abuse, Metabolic acidosis with increased anion gap and accumulation of organic acids Congestive heart failure Qualifiers: Heart failure type: unspecified Heart failure chronicity: acute Qualified Code( s): I50.9 - Heart failure, unspecified - Discharge Information Referrals: PCP,None [Primary Care Provider] - Forms: ED Department Discharge Additional Instructions: Patient will be transferred to [facility] in [place] for cardiology consultation and management. Due to abnormal ECG suggesting old inferior wall and anteroseptal wall myocardial infarction and elevated troponin I with left precordial chest pain. CT pulmonary and gram is negative for pulmonary embolism. Elevated d-dimer may be due to recent clotting from a thrombus in her coronary artery. Patient will be transported by ground ambulance to be admitted to the telemetry unit under the care of hospitalist. - My Orders Last 24 Hours: My Active Orders 05/11/17 13:24 EKG Documentation Completion [RC] STAT Chest 1V Frontal [CR] Stat 05/11/17 16:26 EKG Documentation Completion [RC] STAT - Assessment/Plan Last 24 Hours: My Active Orders 05/11/17 13:24 EKG Documentation Completion [RC] STAT Chest 1V Frontal [CR] Stat 05/11/17 16:26 EKG Documentation Completion [RC] STAT
[2017-05-11] MEDS ORDERED: Ondansetron 4 MG/2 ML SDV IVPUSH ONE (13:26)
[2017-05-11] MEDS ORDERED: Ketorolac 30 MG/ML SDV IVPUSH SCH (13:30)
[2017-05-11] MEDS ORDERED: Dextrose 5%-0.9% NaCl 1,000 ML IV SCH ×2 (13:30→16:15)
[2017-05-11] MEDS ORDERED: Iopamidol 755 Mg/ML 100 ML Bottle IVPUSH ONE (15:05)
--- NOTE | 2017-05-11 15:49 | CT ---
CT chest Technique: Multiple axial sections through the chest were obtained. Intravenous contrast was utilized. Study has been performed as a pulmonary angiogram protocol. Findings: No filling defects are seen to indicate pulmonary embolism. Mediastinum and hilar regions show no adenopathy or mass. Slight pericardial thickening is seen within the anterior inferior pericardium. Other portions of the pericardium appear within normal limits. Slight fatty infiltration is noted within the liver. Several low density areas are felt compatible with cholesterol gallstones are seen within the gallbladder. Small parenchymal density is seen within the left upper chest most likely representing an area of scarring. Very slight spiculation is seen within this finding and follow-up will be recommended. Small subpleural nodule is noted within the right middle lobe measuring about 6 mm. Slight parenchymal density is seen within both lung bases most likely representing scarring. Minimal scarring also felt to be present within the lingula. Lungs show slight emphysematous change. Bone window settings were reviewed which appear within normal limits for the patient's age. Previous gastric surgery is noted. Impression: 1. 2 findings within the chest for which follow-up is recommended. Noncontrast chest CT recommended in 9 months. This would occur in January,. 2. No findings of pulmonary embolism. 3. Mild emphysematous change. 4. Fatty infiltration within the liver as well as several small low-density cholesterol gallstones within the gallbladder. 5. Mild areas of scarring within the lungs. Diagnostic code #9
[2017-05-11] MEDS ORDERED: Aspirin 81 MG Tab.Chew PO ONE (16:12)
[2017-05-11] MEDS ORDERED: Nitroglycerin/D5W 25 MG/250 ML BOTTLE IV SCH (16:15)
[2017-05-11] MEDS ORDERED: Enoxaparin 80 MG/0.8 ML Syringe SUBCUT ONE (16:22)
[2017-05-11] MEDS ORDERED: Thiamine 100 MG in Sodium Chloride 0.9% 100 ML IV ONE (16:40)
[2017-05-11] MEDS ORDERED: Furosemide 40 MG/4 ML VIAL IVPUSH ONE (16:41)
--- NOTE | 2017-05-12 09:34 | CR ---
Chest: Portable view of the chest was obtained. Comparison: Prior chest x-ray of 03/30/17. Heart size and mediastinum are normal. Lungs show no acute parenchymal change. Minimal scarring is seen within both lung bases. Scoliosis is present within the spine. Impression: 1. Incidental findings. Nothing acute is appreciated on portable chest x-ray. Diagnostic code #2
== END 2017-05-11 17:37 ==
LOC: JD.ED 12:59
DX: I50.9 Heart failure, unspecified (principal); E87.1 Hypo-osmolality and hyponatremia; E87.2 Acidosis; F10.10 Alcohol abuse, uncomplicated; R79.89 Other specified abnormal findings of blood chemistry; J44.9 Chronic obstructive pulmonary disease, unspecified; F17.210 Nicotine dependence, cigarettes, uncomplicated; Z91.011 Allergy to milk products
CPT/HCPCS: 36415; 71045; 71275; 80053; 82009; 82553; 83690; 83735; 83880; 84484; 85025; 85379; 85610; 86140; 93005; 96361; 96365; 96372; 96374; 96375; 99285; A9270; J1650; J1940; J2405; J3411; J7030; J7042; Q9967; 93010

== ENCOUNTER 2018-07-04 16:25 | Emergency (ER) | payer BC, MEDICAID ==
[2018-07-04 16:38] VITALS: BP 118/63
[2018-07-04] MEDS ORDERED: Sodium Chloride 0.9% 10 ML Syringe FLUSH PRN (16:50)
[2018-07-04] MEDS ORDERED: Ondansetron 4 MG/2 ML SDV IVPUSH ONE (16:51)
[2018-07-04] MEDS: Sodium Chloride 0.9% 1,000 ML IV SCH ×2 (16:56→17:58)
--- NOTE | 2018-07-04 17:05 | EDM.PDOC ---
ED HPI GENERAL MEDICAL PROBLEM - General Chief Complaint: Gastrointestinal Problem Stated Complaint: COLITIS GETTING WORSE Time Seen by Provider: 07/04/18 16:41 Source of Information: Reports: Patient History Limitations: Reports: No Limitations - History of Present Illness INITIAL COMMENTS - FREE TEXT/NARRATIVE: 48 y/o female presents to ER with cc lower abdominal pain for the past 4 days. She was diagnosis with colitis and started on Cipro and Flagyl. She reports that after taking the antibiotics her symptoms are getting worse. She states she has decreased appetite and is still having bloody diarrhea. She states she feels hot at times but didn't take her temperature. She reports having similar symptoms 13 years ago and had to have " a pic line and IVF for months." She has not collected a stool specimen. She denies nausea or vomiting. She reports having 3 diarrhea stools today. She is accompanied by her spouse. Onset Date: 06/30/18 Onset Time: 08:00 Duration: Getting Worse Location: Reports: Abdomen Quality: Reports: Ache Severity: Mild Improves with: Reports: None Worsens with: Reports: Eating, Medication Associated Symptoms: Denies: Chest Pain, Diaphoresis, Fever/Chills, Nausea/ Vomiting, Shortness of Breath, Weakness Abdominal Pain Score (Numeric/FACES): 6 - Related Data Allergies Allergy/AdvReac Type Severity Reaction Status Date / Time No Known Allergies Allergy Verified 07/04/18 16:40 Home Meds: Home Meds Ciprofloxacin [Ciprofloxacin HCl] 500 mg PO BID 07/04/18 [History] Potassium Chloride 40 meq PO ASDIRECTED 2 Days #4 tablet.er 07/04/18 [Rx] metroNIDAZOLE [Metronidazole] 500 mg PO TID 07/04/18 [History] Past Medical History HEENT History: Reports: Impaired Vision Other HEENT History: glasses Cardiovascular History: Reports: SOB on Exertion Respiratory History: Reports: COPD, Other (See Below) Other Respiratory History: emphysema Other Gastrointestinal History: uncerative colitis--had gastric bypass surgery 22 years ago. Has lost 150 pounds and is maintained this weight. 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 Her baseline weight is 150 pounds. She was 89 when she had the bypass. Female Surgical History: Reports: Tubal Ligation Endocrine Surgical History: Reports: None Musculoskeletal Surgical History: Reports: None Social & Family History - Family History Family Medical History: Noncontributory - Tobacco Use Smoking Status *Q: Former Smoker Years of Tobacco use: 36 Packs/Tins Daily: 1 Used Tobacco, but Quit: Yes Month/Year Tobacco Last Used: 04/2017 Tobacco Use Comment: quit 1.5 months ago - Caffeine Use Caffeine Use: Reports: Coffee, Soda, Tea - Recreational Drug Use Recreational Drug Use: No - Living Situation & Occupation Living situation: Reports: Occupation: Employed ED ROS GENERAL - Review of Systems Review Of Systems: See Below Constitutional: Reports: Other (felt hot but didn't take her temperature). Denies: Chills HEENT: Reports: No Symptoms Respiratory: Reports: No Symptoms Cardiovascular: Reports: No Symptoms Endocrine: Reports: Fatigue GI/Abdominal: Reports: Abdominal Pain, Bloody Stool, Diarrhea, Decreased Appetite : Reports: No Symptoms Musculoskeletal: Reports: No Symptoms Skin: Reports: No Symptoms Neurological: Reports: No Symptoms Psychiatric: Reports: No Symptoms Hematologic/Lymphatic: Reports: No Symptoms Immunologic: Reports: No Symptoms ED EXAM, GI/ABD - Physical Exam Exam: See Below Exam Limited By: No Limitations General Appearance: Alert, WD/WN, No Apparent Distress Neck: Normal Inspection, Supple, Non-Tender, Full Range of Motion Respiratory/Chest: No Respiratory Distress, Lungs Clear, Normal Breath Sounds, No Accessory Muscle Use Cardiovascular: Normal Peripheral Pulses, Regular Rate, Rhythm, No Edema, No Gallop, No JVD, No Murmur, No Rub GI/Abdominal Exam: Normal Bowel Sounds, No Organomegaly, No Distention, No Abnormal Bruit, No Mass, Pelvis Stable, Tender (lower abdominal tenderness, no rebound ) Back Exam: Normal Inspection, Full Range of Motion Extremities: Normal Inspection, Normal Range of Motion, Non-Tender, No Pedal Edema, Normal Capillary Refill Neurological: Alert, Oriented, CN II-XII Intact, Normal Cognition, Normal Gait Psychiatric: Normal Affect, Normal Mood Skin Exam: Warm, Dry, Intact, Normal Color, No Rash Lymphatic: No Adenopathy Course - Vital Signs Last Recorded V/S: Last Vital Signs Temp 97.3 F 07/04/18 16:38 Pulse 99 07/04/18 16:38 Resp 15 07/04/18 16:38 BP 118/63 07/04/18 16:38 Pulse Ox 100 07/04/18 16:38 Orthostatic Blood Pressure [ 93/64 Standing] Orthostatic Blood Pressure [ 113/52 Sitting] Orthostatic Blood Pressure [ 121/61 Supine] - Orders/Labs/Meds Orders: Active Orders 24 hr Category Date Time Status Orthostatic Vital Signs [RC] ASDIRECTED Care 07/04/18 16:59 Active Sodium Chloride 0.9% [Normal Saline] 1,000 ml Med 07/04/18 17:00 Active IV ASDIRECTED Sodium Chloride 0.9% [Normal Saline] 1,000 ml Med 07/04/18 18:00 Active IV ASDIRECTED Sodium Chloride 0.9% [Saline Flush] Med 07/04/18 16:50 Active 10 ml FLUSH ASDIRECTED PRN Saline Lock Insert [OM.PC] Routine Oth 07/04/18 16:50 Ordered Medication Orders Sodium Chloride (Normal Saline) 1,000 mls @ 999 mls/hr IV ASDIRECTED BHAVANI Last Admin: 07/04/18 17:58 Dose: 999 mls/hr Infusion: 07/04/18 17:57 Dose: 999 mls/hr Admin: 07/04/18 16:56 Dose: 999 mls/hr Sodium Chloride (Normal Saline) 1,000 mls @ 999 mls/hr IV ASDIRECTED BHAVANI Sodium Chloride (Saline Flush) 10 ml FLUSH ASDIRECTED PRN PRN Reason: Keep Vein Open Last Admin: 07/04/18 16:58 Dose: 10 ml Labs: Laboratory Tests 07/04/18 07/04/18 07/04/18 Range/Units 17:05 17:05 17:05 WBC 10.37 H (3.98-10.04) K/mm3 RBC 5.13 (3.98-5.22) M/mm3 Hgb 12.2 D (11.2-15.7) gm/L Hct 38.7 (34.1-44.9) % MCV 75.4 L (79.4-94.8) fl MCH 23.8 L (25.6-32.2) pg MCHC 31.5 L (32.2-35.5) g/dl RDW Std Deviation 44.1 (36.4-46.3) fL Plt Count 359 (182-369) K/mm3 MPV 9.6 (9.4-12.3) fl Neut % (Auto) 76.7 H (34.0-71.1) % Lymph % (Auto) 10.6 L (19.3-51.7) % [place] % (Auto) 11.6 (4.7-12.5) % Eos % (Auto) 0.6 L (0.7-5.8) Baso % (Auto) 0.2 (0.1-1.2) % Neut # (Auto) 7.96 H (1.56-6.13) K/mm3 Lymph # (Auto) 1.10 L (1.18-3.74) K/mm3 [place] # (Auto) 1.20 H (0.24-0.36) K/mm3 Eos # (Auto) 0.06 (0.04-0.36) K/mm3 Baso # (Auto) 0.02 (0.01-0.08) K/mm3 Sodium 135 L (136-145) mEq/L Potassium 2.7 L (3.5-5.1) mEq/L Chloride 99 (98-107) mEq/L Carbon Dioxide 19 L (21-32) mEq/L Anion Gap 19.7 H (5-15) BUN 8 (7-18) mg/dL Creatinine 0.9 (0.55-1.02) mg/dL Est Cr Clr Drug Dosing 83.58 mL/min Estimated GFR (MDRD) > 60 (>60) mL/min BUN/Creatinine Ratio 8.9 L (14-18) Glucose 115 H (74-106) mg/dL Calcium 8.7 (8.5-10.1) mg/dL Magnesium 1.5 L (1.8-2.4) mg/dl Total Bilirubin 0.7 (0.2-1.0) mg/dL AST 17 (15-37) U/L ALT 20 (14-59) U/L Alkaline Phosphatase 105 (46-116) U/L Total Protein 6.7 (6.4-8.2) g/dl Albumin 3.0 L (3.4-5.0) g/dl Globulin 3.7 gm/dL Albumin/Globulin Ratio 0.8 L (1-2) Meds: Medications Generic Name Dose Route Start Last Admin Trade Name Freq PRN Reason Stop Dose Admin Sodium Chloride 1,000 mls @ 999 mls/hr 07/04/18 17:00 07/04/18 17:58 Normal Saline IV 999 mls/hr ASDIRECTED BHAVANI Administration Sodium Chloride 1,000 mls @ 999 mls/hr 07/04/18 18:00 Normal Saline IV ASDIRECTED BHAVANI Sodium Chloride 10 ml 07/04/18 16:50 07/04/18 16:58 Saline Flush FLUSH 10 ml ASDIRECTED PRN Administration Keep Vein Open Discontinued Medications Generic Name Dose Route Start Last Admin Trade Name Lukeq PRN Reason Stop Dose Admin Magnesium Oxide 400 mg 07/04/18 17:58 07/04/18 18:05 Magnesium Oxide PO 07/04/18 17:59 400 mg ONETIME ONE Administration Ondansetron HCl 4 mg 07/04/18 16:51 07/04/18 16:56 Zofran IVPUSH 07/04/18 16:52 4 mg ONETIME ONE Administration Potassium Chloride 40 meq 07/04/18 17:41 07/04/18 17:47 Klor-Con M20 PO 07/04/18 17:42 40 meq ONETIME ONE Administration - Re-Assessments/Exams Free Text/Narrative Re-Assessment/Exam: 07/04/18 17:49 Wbc 10.37 RBC 5.13 H & H 12.2/38.7 Na + 135 K + 2.7 chl 99 co2 19 anion gag 19.7 bun 8 creatine 0.9. I will give her potassium supplements. She states she feels better after receiving IVF. 07/04/18 17:59 magnesium 1.5, I will medicate with magnesium oxide 400 mg P.O. 07/04/18 18:25 She states she feels better. She is tolerating P.O. challenge. I will discharge home with potassium supplements. I instructed to increase her oral intake and advance diet as tolerated. Instructed to return to the ER for any new or acute worsening symptoms. She verbalized understanding and is comfortable with plan for discharge. Departure - Departure Time of Disposition: 18:27 Disposition: Home, Self-Care 01 Condition: Good Clinical Impression: Colitis - Discharge Information *PRESCRIPTION DRUG MONITORING PROGRAM REVIEWED*: Not Applicable *COPY OF PRESCRIPTION DRUG MONITORING REPORT IN PATIENT EMILY: Not Applicable Prescriptions: Potassium Chloride 40 meq PO ASDIRECTED 2 Days #4 tablet.er Instructions: Dehydration, Adult, [id number], Colitis Referrals: Marita Wong NP [Primary Care Provider] - Estephanie Rowe MD [Physician] - Forms: ED Department Discharge Additional Instructions: You have been diagnosis with colitis and dehydration. I recommend you drink Gatorade or power aid. You should follow up with Dr. 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 Follow up with your PCP. Return to the ER for any new or acute worsening symptoms. - My Orders Last 24 Hours: My Active Orders 07/04/18 16:50 Sodium Chloride 0.9% [Saline Flush] 10 ml FLUSH ASDIRECTED PRN Saline Lock Insert [OM.PC] Routine 07/04/18 16:59 Orthostatic Vital Signs [RC] ASDIRECTED 07/04/18 17:00 Sodium Chloride 0.9% [Normal Saline] 1,000 ml IV ASDIRECTED 07/04/18 18:00 Sodium Chloride 0.9% [Normal Saline] 1,000 ml IV ASDIRECTED - Assessment/Plan Last 24 Hours: My Active Orders 07/04/18 16:50 Sodium Chloride 0.9% [Saline Flush] 10 ml FLUSH ASDIRECTED PRN Saline Lock Insert [OM.PC] Routine 07/04/18 16:59 Orthostatic Vital Signs [RC] ASDIRECTED 07/04/18 17:00 Sodium Chloride 0.9% [Normal Saline] 1,000 ml IV ASDIRECTED 07/04/18 18:00 Sodium Chloride 0.9% [Normal Saline] 1,000 ml IV ASDIRECTED
[2018-07-04] MEDS ORDERED: Potassium Chloride 20 MEQ Tab.ER PO ONE (17:41)
[2018-07-04] MEDS ORDERED: Magnesium Oxide 400 MG Tab PO ONE (17:58)
[2018-07-04] MEDS ORDERED: Sodium Chloride 0.9% 1,000 ML IV SCH (18:00)
== END 2018-07-04 19:02 | disposition home or self-care (01) ==
LOC: JD.ED 16:25
DX: K52.9 Noninfective gastroenteritis and colitis, unspecified (principal); J44.9 Chronic obstructive pulmonary disease, unspecified; Z87.891 Personal history of nicotine dependence; Z79.899 Other long term (current) drug therapy
CPT/HCPCS: 36415; 80053; 83735; 85025; 96361; 96374; 99284; A9270; J2405; J7040

== ENCOUNTER 2018-07-21 16:57 | Emergency (ER) | payer SELFPAY ==
[2018-07-21 17:11] VITALS: BP 112/60
[2018-07-21] MEDS ORDERED: Lactated Ringers 1,000 ML IV ONE ×2 (17:51→18:47)
[2018-07-21] MEDS ORDERED: Sodium Chloride 0.9% 10 ML Syringe FLUSH PRN (17:51)
[2018-07-21] MEDS ORDERED: Ondansetron 4 MG/2 ML SDV IVPUSH ONE (17:51)
[2018-07-21] MEDS ORDERED: Potassium Chloride 20 MEQ Tab.ER PO ONE (17:52)
--- NOTE | 2018-07-21 17:57 | EDM.PDOC ---
ED HPI GENERAL MEDICAL PROBLEM - General Chief Complaint: Gastrointestinal Problem Stated Complaint: MIGHT HAVE COLITIS Time Seen by Provider: 07/21/18 17:38 Source of Information: Reports: Patient, Old Records History Limitations: Reports: No Limitations - History of Present Illness INITIAL COMMENTS - FREE TEXT/NARRATIVE: 48-year-old female sent from the clinic for dehydration and hypokalemia. Patient was seen by her primary care provider June 30 for abdominal pain and diarrhea. She was diagnosed with colitis and started on ciprofloxacin and Flagyl. She had a CT, noncontrast, done at [facility] that suggested this. She was seen in the ER in June and today by surgery for follow-up for the colitis. She reports at this time she has some minor abdominal cramping but that has improved. She still has significant stools and has approximately 12 episodes of stool day. She has appreciated brown or red blood in her stool. She reports associated symptoms of subjective fever, diaphoresis, chills, nausea and joint pains. She diet denies any vomiting. She was seen by nurse practitioner, Autumn Bower, surgical AUTOMATIC DRILL OPERATOR, today. Case was reviewed with Dr. Dial. They have done multiple labs including stool studies with C. difficile and others. Dr. Dial did not feel that additional CT was needed today. Patient reports she was diagnosed with ulcerative colitis about 14 years At that time she requires months of antibiotics. She states that her last colonoscopy was around this time. They did discuss this during her visit with surgery today, they felt to be best if she waited until the colitis had subsided to have another colonoscopy. Primary care provider is Marita Wong. Duration: Week(s): (3) - Related Data Allergies Allergy/AdvReac Type Severity Reaction Status Date / Time No Known Allergies Allergy Verified 07/21/18 17:10 Home Meds: Home Meds Ciprofloxacin [Ciprofloxacin HCl] 500 mg PO BID 07/04/18 [History] Potassium Chloride 40 meq PO ASDIRECTED 2 Days #4 tablet.er 07/04/18 [Rx] metroNIDAZOLE [Metronidazole] 500 mg PO TID 07/04/18 [History] Albuterol Sulfate [Albuterol Sulfate Hfa] 2 puff IH Q6H PRN 07/21/18 [History] Aspirin 81 mg PO DAILY 07/21/18 [History] Cholecalciferol (Vitamin D3) [Vitamin D] 5,000 unit PO DAILY 07/21/18 [History] Cyanocobalamin (Vitamin B12) [Vitamin B12] 1,000 mcg PO DAILY 07/21/18 [History] Estrogens, Conjugated [Premarin Vaginal Crm] 0.5 applic VAG ASDIRECTED 07/21/18 [History] Fluticasone/Umeclidin/Vilanter [Trelegy Ellipta 100-62.5-25] 1 puff IH DAILY 06/05 [History] Folic Acid 0.8 mg PO DAILY 07/21/18 [History] Lactobac Cmb #3/Fos/Pantethine [Probiotic & Acidophilus] 1 each PO DAILY [History] Multivitamin [Multivitamins] 1 each PO DAILY 07/21/18 [History] Omeprazole 20 mg PO DAILY 07/21/18 [History] Ondansetron [Zofran ODT] 4 mg PO Q6H PRN 07/21/18 [History] Potassium Chloride 20 meq PO BID #14 tablet.er 07/21/18 [Rx] Pramipexole [Mirapex] 0.25 mg PO BEDTIME PRN 07/21/18 [History] Progesterone,Micronized [Progesterone] 100 mg PO BEDTIME 07/21/18 [History] Past Medical History HEENT History: Reports: Impaired Vision Other HEENT History: glasses Cardiovascular History: Reports: SOB on Exertion Respiratory History: Reports: COPD, Other (See Below) Other Respiratory History: emphysema Other Gastrointestinal History: uncerative colitis--had gastric bypass surgery 22 years ago. Has lost 150 pounds and is maintained this weight. 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 Her baseline weight is 150 pounds. She was 89 when she had the bypass. Female Surgical History: Reports: Tubal Ligation Endocrine Surgical History: Reports: None Musculoskeletal Surgical History: Reports: None Social & Family History - Family History Family Medical History: Noncontributory - Tobacco Use Smoking Status *Q: Never Smoker - Caffeine Use Caffeine Use: Reports: Coffee, Soda, Tea - Recreational Drug Use Recreational Drug Use: No - Living Situation & Occupation Living situation: Reports: Occupation: Employed ED ROS GENERAL - Review of Systems Review Of Systems: See Below Constitutional: Reports: Fever (Subjective), Chills, Diaphoresis GI/Abdominal: Reports: Abdominal Pain (Reports lower abdominal cramping), Bloody Stool, Diarrhea (Over 12 episodes a day), Flatus (Continues to pass gas) , Nausea. Denies: Melena, Vomiting : Reports: No Symptoms ED EXAM, GI/ABD - Physical Exam Exam: See Below Exam Limited By: No Limitations General Appearance: Alert, WD/WN, No Apparent Distress, Obese Respiratory/Chest: No Respiratory Distress, Lungs Clear, Normal Breath Sounds Cardiovascular: Normal Peripheral Pulses, Regular Rate, Rhythm, No Murmur GI/Abdominal Exam: Normal Bowel Sounds, Soft, Non-Tender Neurological: Alert, Oriented, Normal Cognition Psychiatric: Normal Affect, Normal Mood Skin Exam: Warm, Dry, Pallor Course - Vital Signs Last Recorded V/S: Last Vital Signs Temp 97.9 F 07/21/18 17:07 Pulse 71 07/21/18 17:07 Resp 16 07/21/18 17:07 BP 112/60 07/21/18 17:07 Pulse Ox 96 07/21/18 17:07 - Orders/Labs/Meds Orders: Active Orders 24 hr Category Date Time Status Orthostatic Vital Signs [RC] ASDIRECTED Care 07/21/18 17:52 Active Peripheral IV Care [RC] . DIRECTED Care 07/21/18 17:51 Active Peripheral IV Insertion Adult [OM.PC] Routine Oth 07/21/18 17:51 Ordered Meds: Medications Discontinued Medications Generic Name Dose Route Start Last Admin Trade Name Lukeq PRN Reason Stop Dose Admin Lactated Ringer's 1,000 mls @ 999 mls/hr 07/21/18 17:51 07/21/18 18:11 Ringers, Lactated IV 07/21/18 18:51 999 mls/hr .BOLUS ONE Administration Lactated Ringer's 1,000 mls @ 999 mls/hr 07/21/18 18:47 07/21/18 19:15 Ringers, Lactated IV 06/04/19 19:47 999 mls/hr .BOLUS ONE Administration Ondansetron HCl 4 mg 07/21/18 17:51 07/21/18 18:12 Zofran IVPUSH 07/21/18 17:52 4 mg ONETIME ONE Administration Potassium Chloride 40 meq 07/21/18 17:52 07/21/18 18:13 Klor-Con M20 PO 07/21/18 17:53 40 meq ONETIME ONE Administration Sodium Chloride 10 ml 07/21/18 17:51 07/21/18 18:13 Saline Flush FLUSH 10 ml ASDIRECTED PRN Administration Keep Vein Open - Re-Assessments/Exams Free Text/Narrative Re-Assessment/Exam: 07/21/18 20:31 She has labs with her from today's visit with nurse practitioner Autumn Bower. Remarkable for white blood cell count of 12, hemoglobin of 12 and platelet count of 552. CBC shows a sodium of 142, potassium 2.8 chloride of 98. Glucose is 102. CRP is elevated at 25.3, reference range is less than 5. Magnesium is normal at 1.9. Autumn also sent over her note. I reviewed this. Sent to the ER for IV hydration and IV potassium. Patient has received 2 L of fluid. I did give her a 40meq tablet of oral potassium and she has been able to tolerate things orally. She is drinking fluids at this time. Her blood pressures have improved. She is comfortable going home. Encouraged her follow up with surgery for results of the extensive testing she had done today. Discharge instructions as documented. Departure - Departure Time of Disposition: 20:52 Disposition: Home, Self-Care 01 Condition: Fair Clinical Impression: Hypokalemia due to inadequate potassium intake, Dehydration - Discharge Information *PRESCRIPTION DRUG MONITORING PROGRAM REVIEWED*: No *COPY OF PRESCRIPTION DRUG MONITORING REPORT IN PATIENT EMILY: No Prescriptions: Potassium Chloride 20 meq PO BID #14 tablet.er Instructions: Hypokalemia, Dehydration, Adult, [id number] Referrals: Marita Wong NP [Primary Care Provider] - Forms: ED Department Discharge Additional Instructions: Continue to drink plenty of fluids. Drink water, Gatorade or Powerade. Potassium as prescribed. 1 tab twice a day for 7 days. Follow-up with your primary care provider next week to have her potassium rechecked. Follow-up with surgery for your lab results from today. Please return to the ER if your symptoms change or worsen. - My Orders Last 24 Hours: My Active Orders 07/21/18 17:51 Peripheral IV Care [RC] . DIRECTED Peripheral IV Insertion Adult [OM.PC] Routine 07/21/18 17:52 Orthostatic Vital Signs [RC] ASDIRECTED - Assessment/Plan Last 24 Hours: My Active Orders 07/21/18 17:51 Peripheral IV Care [RC] . DIRECTED Peripheral IV Insertion Adult [OM.PC] Routine 07/21/18 17:52 Orthostatic Vital Signs [RC] ASDIRECTED
== END 2018-07-21 21:05 | disposition home or self-care (01) ==
LOC: JD.ED 16:57
DX: E87.6 Hypokalemia (principal); E86.0 Dehydration; Z79.82 Long term (current) use of aspirin; Z79.899 Other long term (current) drug therapy; Z98.84 Bariatric surgery status
CPT/HCPCS: 96361; 96374; 99283; A9270; J2405; J7120

== ENCOUNTER 2018-08-04 10:28 | Inpatient (IN) | payer BC ==
[2018-08-04] MEDS ORDERED: Ondansetron 4 MG/2 ML SDV IVPUSH ONE (11:24)
[2018-08-04] MEDS ORDERED: Sodium Chloride 0.9% 10 ML Syringe FLUSH PRN (11:24)
[2018-08-04] MEDS ORDERED: Sodium Chloride 0.9% 1,000 ML IV SCH (11:30)
--- NOTE | 2018-08-04 11:57 | EDM.PDOC ---
ED HPI GENERAL MEDICAL PROBLEM - General Chief Complaint: Abdominal Pain Stated Complaint: DIFFICULTY WALKING SENT BY DR PHAM Time Seen by Provider: 08/04/18 11:07 Source of Information: Reports: Patient, RN Notes Reviewed History Limitations: Reports: No Limitations - History of Present Illness INITIAL COMMENTS - FREE TEXT/NARRATIVE: Patient is a 48-year-old female who presents to the ED for the generalized feelings of weakness. The patient states that she was diagnosed with C. difficile 2 weeks ago and has been on antibiotic therapy for this, however she states she's been feeling more weak and unable to walk much for any type of distance at all. She notes that she's had multiple bouts of diarrhea for the past month, and wonders if she is not just really dehydrated. The patient also states she has not had much of an appetite, nothing sounds good to her to eat. She also notes she's lost around 26 pounds in the last month. She is complaining of general fatigue with no energy. She has finished her antibiotic therapy for C. difficile this last Friday, and states that her stools are regaining form and beginning to become less frequent. The patient states she had a CT of her abdomen done around 1 month ago, and showed a hernia but no other worrisome changes. She does have a primary care provider, at the [facility] by the name of Autumn Bower. She was formally being seen by Marita Wong. The patient states that she is going to see a medium cycle salesperson sometime soon. She states that she does have some minor abdominal pains, that come and go in waves. The seal-like cast pains. She denies any chest pain or shortness of breath or any sore urinary symptoms, however she feels dizzy when she is standing and just generalized fatigue. She has had a gastric bypass, a tubal ligation and a in the past. She still retains her gallbladder and appendix at this time. She denies any fevers or chills that she has had. She notes some nausea with dry heaves, but no actual vomiting. She has been able to keep fluids down. Abdominal Pain Score (Numeric/FACES): 2 - Related Data Allergies Allergy/AdvReac Type Severity Reaction Status Date / Time No Known Allergies Allergy Verified 08/04/18 10:41 Home Meds: Home Meds Omeprazole 20 mg PO DAILY 07/21/18 [History] Past Medical History HEENT History: Reports: Impaired Vision Other HEENT History: glasses Cardiovascular History: Reports: [place], SOB on Exertion Respiratory History: Reports: COPD, Other (See Below) Other Respiratory History: emphysema Other Gastrointestinal History: uncerative colitis--had gastric bypass surgery 22 years ago. Has lost 150 pounds and is maintained this weight. 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 Her baseline weight is 150 pounds. She was 89 when she had the bypass. Female Surgical History: Reports: Section, Tubal Ligation Endocrine Surgical History: Reports: None Musculoskeletal Surgical History: Reports: None Social & Family History - Family History Family Medical History: Noncontributory - Tobacco Use Smoking Status *Q: Former Smoker Used Tobacco, but Quit: Yes Month/Year Tobacco Last Used: 2017 - Caffeine Use Caffeine Use: Reports: None - Recreational Drug Use Recreational Drug Use: No - Living Situation & Occupation Living situation: Reports: Occupation: Employed ED ROS GENERAL - Review of Systems Review Of Systems: See Below Constitutional: Reports: Weakness, Fatigue, Decreased Appetite, Weight Loss (26 lb this last month). Denies: Fever, Chills HEENT: Reports: No Symptoms Respiratory: Reports: No Symptoms Cardiovascular: Reports: No Symptoms Endocrine: Reports: No Symptoms GI/Abdominal: Reports: Abdominal Pain (gas pains), Diarrhea, Nausea. Denies: Black Stool, Bloody Stool, Vomiting : Reports: No Symptoms Musculoskeletal: Reports: No Symptoms Skin: Reports: No Symptoms Neurological: Reports: Dizziness (from sitting to standing) Psychiatric: Reports: No Symptoms Hematologic/Lymphatic: Reports: No Symptoms ED EXAM, GI/ABD - Physical Exam Exam: See Below Exam Limited By: No Limitations General Appearance: Alert, WD/WN, No Apparent Distress Eyes: Bilateral: Normal Appearance Ears: Normal External Exam Nose: Normal Inspection Throat/Mouth: Normal Inspection, Normal Oropharynx (mildly dry oral mucosa) Head: Atraumatic, Normocephalic Neck: Normal Inspection, Supple, Non-Tender, Full Range of Motion Respiratory/Chest: No Respiratory Distress, Lungs Clear, Normal Breath Sounds, No Accessory Muscle Use, Chest Non-Tender Cardiovascular: Normal Peripheral Pulses, Regular Rate, Rhythm, No Murmur GI/Abdominal Exam: Normal Bowel Sounds, Soft, Non-Tender, No Distention, No Mass Extremities: Normal Inspection, Normal Capillary Refill Neurological: Alert, Oriented, Normal Cognition, No Motor/Sensory Deficits Psychiatric: Normal Affect, Normal Mood Skin Exam: Warm, Dry, Intact, No Rash, Pallor (generalized) EKG INTERPRETATION EKG Date: 08/04/18 Time: 13:03 Rhythm: NSR Rate (Beats/Min): 66 [place]: LAD-Left [place] Deviation (-4) P-Wave: Present QRS: Normal ST-T: Depressed (mild depression v2) QT: Normal EKG Interpretation Comments: Reviewed with Dr. Alexis, T wave inversion V3-6, II, II and aVF. Course - Vital Signs Last Recorded V/S: Last Vital Signs Temp 98.5 F 08/04/18 10:37 Pulse 95 08/04/18 10:37 Resp 16 08/04/18 10:37 BP 112/57 L 08/04/18 10:37 Pulse Ox 98 08/04/18 10:37 - Orders/Labs/Meds Orders: Active Orders 24 hr Category Date Time Status Admission Status [Patient Status] [ADT] Routine ADT 08/04/18 13:03 Ordered EKG Documentation Completion [RC] STAT Care 08/04/18 12:59 Ordered Peripheral IV Care [RC] . DIRECTED Care 08/04/18 11:24 Ordered TROPONIN I [CHEM] Stat Lab 08/04/18 13:14 Ordered Magnesium Sulfate/Water [Magnesium Sulfate in Water Med 08/04/18 13:38 Ordered Premix] 2 gm Premix Bag 1 bag IV ONETIME Sodium Chloride 0.9% [Normal Saline] 1,000 ml Med 08/04/18 11:30 Ordered IV ASDIRECTED Sodium Chloride 0.9% [Saline Flush] Med 08/04/18 11:24 Ordered 10 ml FLUSH ASDIRECTED PRN Peripheral IV Insertion Adult [OM.PC] Routine Oth 08/04/18 11:24 Ordered Medication Orders Sodium Chloride (Normal Saline) 1,000 mls @ 500 mls/hr IV ASDIRECTED BHAVANI Last Admin: 08/04/18 11:39 Dose: 500 mls/hr Sodium Chloride (Saline Flush) 10 ml FLUSH ASDIRECTED PRN PRN Reason: Keep Vein Open Last Admin: 08/04/18 11:39 Dose: 10 ml Labs: Laboratory Tests 08/04/18 08/04/18 08/04/18 Range/Units 11:32 11:32 11:32 WBC 7.08 (3.98-10.04) K/mm3 RBC 4.80 (3.98-5.22) M/mm3 Hgb 11.8 (11.2-15.7) gm/L Hct 37.5 (34.1-44.9) % MCV 78.1 L (79.4-94.8) fl MCH 24.6 L (25.6-32.2) pg MCHC 31.5 L (32.2-35.5) g/dl RDW Std Deviation 54.8 H (36.4-46.3) fL Plt Count 294 (182-369) K/mm3 MPV 9.4 (9.4-12.3) fl Neutrophils % (Manual) 69 H (40-60) % Band Neutrophils % 0 (0-10) % Lymphocytes % (Manual) 18 L (20-40) % Atypical Lymphs % 0 % Monocytes % (Manual) 5 (2-10) % Eosinophils % (Manual) 7 H (0.7-5.8) % Basophils % (Manual) 1 (0.1-1.2) Toxic Granulation 2+ moderate Platelet Estimate Adequate Polychromasia 1+ slight Hypochromasia 1+ slight Anisocytosis 1+ slight RBC Morph Comment Abnormal Sodium 138 (136-145) mEq/L Potassium 2.3 L* (3.5-5.1) mEq/L Chloride 101 (98-107) mEq/L Carbon Dioxide 29 D (21-32) mEq/L Anion Gap 10.3 (5-15) BUN 7 (7-18) mg/dL Creatinine 0.9 (0.55-1.02) mg/dL Est Cr Clr Drug Dosing 83.58 mL/min Estimated GFR (MDRD) > 60 (>60) mL/min BUN/Creatinine Ratio 7.8 L (14-18) Glucose 131 H (74-106) mg/dL Calcium 7.9 L (8.5-10.1) mg/dL Magnesium 1.6 L (1.8-2.4) mg/dl Total Bilirubin 0.4 (0.2-1.0) mg/dL AST 24 (15-37) U/L ALT 20 (14-59) U/L Alkaline Phosphatase 92 (46-116) U/L Total Protein 5.1 L (6.4-8.2) g/dl Albumin 1.7 L (3.4-5.0) g/dl Globulin 3.4 gm/dL Albumin/Globulin Ratio 0.5 L (1-2) Meds: Medications Generic Name Dose Route Start Last Admin Trade Name Freq PRN Reason Stop Dose Admin Sodium Chloride 1,000 mls @ 500 mls/hr 08/04/18 11:30 08/04/18 11:39 Normal Saline IV 500 mls/hr ASDIRECTED BHAVANI Administration Sodium Chloride 10 ml 08/04/18 11:24 08/04/18 11:39 Saline Flush FLUSH 10 ml ASDIRECTED PRN Administration Keep Vein Open Discontinued Medications Generic Name Dose Route Start Last Admin Trade Name Freq PRN Reason Stop Dose Admin Potassium Chloride 10 meq/ 100 mls @ 100 mls/hr 08/04/18 12:11 08/04/18 12:44 Premix IV 08/04/18 13:10 100 mls/hr ASDIRECTED ONE Administration Ondansetron HCl 4 mg 08/04/18 11:24 08/04/18 11:41 Zofran IVPUSH 08/04/18 11:25 4 mg ONETIME ONE Administration - Re-Assessments/Exams Free Text/Narrative Re-Assessment/Exam: 08/04/18 12:00 Patient presents to the ED for evaluation of generalized fatigue. I have ordered a CBC, CMP for initial evaluation, an IV will be placed to be given a bag of fluids with 4 mg of Zofran. This is suspicious for generalized dehydration due to the multiple bouts of diarrhea over the last month. 08/04/18 12:23 Pt's labs have returned and her potassium is low at 2.3, have ordered potassium 10mEq IV, she would likely benefit from hospitalization for fluid and potassium repletion. Will discuss case with hospitalist. 08/04/18 13:05 Pt will be admitted to Outpt Med surg w/ tele per Dr. Longoria's request. Have ordered EKG to evaluate for any arrythmias. Her telemetry strips have not elicited any sort of rhythm abnormality. 08/04/18 13:17 EKG done and demonstrates some mild t-wave abnormalities. This may likely be due to the hypokalemia, but have ordered troponin to r/o any other cardiac etiology. 08/04/18 13:39 Magnesium is slightly low, Have ordered 2gm to be given for supplementation. Departure - Departure Time of Disposition: 13:07 Disposition: Refer to Observation Condition: Fair Clinical Impression: Hypokalemia - Discharge Information *PRESCRIPTION DRUG MONITORING PROGRAM REVIEWED*: No *COPY OF PRESCRIPTION DRUG MONITORING REPORT IN PATIENT EMILY: No Referrals: Autumn Pham MD [Physician] - Forms: ED Department Discharge - My Orders Last 24 Hours: My Active Orders 08/04/18 11:24 Peripheral IV Care [RC] . DIRECTED Sodium Chloride 0.9% [Saline Flush] 10 ml FLUSH ASDIRECTED PRN Peripheral IV Insertion Adult [OM.PC] Routine 08/04/18 11:30 Sodium Chloride 0.9% [Normal Saline] 1,000 ml IV ASDIRECTED 08/04/18 12:59 EKG Documentation Completion [RC] STAT 08/04/18 13:03 Admission Status [Patient Status] [ADT] Routine 08/04/18 13:14 TROPONIN I [CHEM] Stat 08/04/18 13:38 Magnesium Sulfate/Water [Magnesium Sulfate in Water Premix] 2 gm Premix Bag 1 bag IV ONETIME - Assessment/Plan Last 24 Hours: My Active Orders 08/04/18 11:24 Peripheral IV Care [RC] . DIRECTED Sodium Chloride 0.9% [Saline Flush] 10 ml FLUSH ASDIRECTED PRN Peripheral IV Insertion Adult [OM.PC] Routine 08/04/18 11:30 Sodium Chloride 0.9% [Normal Saline] 1,000 ml IV ASDIRECTED 08/04/18 12:59 EKG Documentation Completion [RC] STAT 08/04/18 13:03 Admission Status [Patient Status] [ADT] Routine 08/04/18 13:14 TROPONIN I [CHEM] Stat 08/04/18 13:38 Magnesium Sulfate/Water [Magnesium Sulfate in Water Premix] 2 gm Premix Bag 1 bag IV ONETIME
[2018-08-04] MEDS ORDERED: Potassium Chloride 10 MEQ in Premix Bag 1 BAG IV ONE (12:11)
[2018-08-04] MEDS ORDERED: Magnesium Sulfate/Water 2 GM in Premix Bag 1 BAG IV ONE (13:38)
[2018-08-04] MEDS: Sodium Chloride 0.9% 1,000 ML IV SCH ×2 (14:26→20:55)
[2018-08-04] MEDS: Potassium Chloride 10 MEQ in Premix Bag 1 BAG IV SCH ×4 (15:22→18:42)
[2018-08-04] MEDS ORDERED: Ondansetron 4 MG/2 ML SDV IV PRN (15:56)
[2018-08-04] MEDS ORDERED: Ondansetron 4 MG Tab.DIS PO PRN (15:56)
--- NOTE | 2018-08-04 16:11 | PCM.HP ---
H&P History of Present Illness - General Date of Service: 08/04/18 Admit Problem/Dx: Admission Diagnosis/Problem Admission Diagnosis/Problem Hypokalemia - History of Present Illness Initial Comments - Free Text/Narative: History old female admitted for observation through the emergency room for severe hypokalemia secondary to diarrhea. Starting in May patient was having lower GI symptoms including abdominal pain and passing blood clots. She has a history of an undetermined colitis several years ago. She went to her primary care provider and a CT scan of the abdomen and pelvis was performed. There was concern for diverticulitis and she was started on 2 antibiotics. Patient developed significant and severe diarrhea and general malaise. After 7-10 days of antibiotics she did get referred to surgery who reviewed the CT scan and did stool cultures. Patient was out for C. difficile and started on 10 day course of vancomycin. Patient finished that 10 day course of vancomycin 3 days ago. Patient continues to feel weak and tired so came in today with lower abdominal pain and diarrhea. She states the diarrhea is starting to improve and she is able to keep fluids down. She denies any fever or chills. She denies any current hematochezia or melena. Onset of Symptoms: Reports: Gradual Abdominal Pain Score (Numeric/FACES): 2 - Related Data Allergies/Adverse Reactions: Allergies Allergy/AdvReac Type Severity Reaction Status Date / Time No Known Allergies Allergy Verified 08/04/18 10:41 Home Medications: Home Meds Omeprazole 20 mg PO DAILY 07/21/18 [History] Aspirin 81 mg PO DAILY 08/04/18 [History] Cholecalciferol (Vitamin D3) [Vitamin D3] 5,000 unit PO DAILY 08/04/18 [History] Cider Vinegar [Apple Cider Vinegar] 300 mg PO DAILY 08/04/18 [History] Cyanocobalamin/Folic Acid [Vitamin Q25-Ofjzc Acid] 1 tab PO DAILY 08/04/18 [ History] L.acidoph,Paracasei, B.lactis [Probiotic] 1 each PO DAILY 08/04/18 [History] Multivitamin [Multi-Day Vitamins] 1 each PO DAILY 08/04/18 [History] Ranitidine HCl [Ranitidine] 150 mg PO BID 08/04/18 [History] Past Medical History HEENT History: Reports: Impaired Vision Other HEENT History: glasses Cardiovascular History: Reports: [place], SOB on Exertion Respiratory History: Reports: COPD, Other (See Below) Other Respiratory History: emphysema Gastrointestinal History: Reports: Hiatal Hernia Other Gastrointestinal History: had 1 time when 13 years ago- never had another episode- ulcerative colitis--had gastric bypass surgery 22 years ago. Has lost 150 pounds and is maintained this weight. 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 Her baseline weight is 150 pounds. She was 89 when she had the bypass. Female Surgical History: Reports: Section, Tubal Ligation Endocrine Surgical History: Reports: None Musculoskeletal Surgical History: Reports: None Social & Family History - Family History Family Medical History: Noncontributory - Tobacco Use Smoking Status *Q: Former Smoker Years of Tobacco use: 36 Packs/Tins Daily: 1 Used Tobacco, but Quit: Yes Month/Year Tobacco Last Used: May 2018 Second Hand Smoke Exposure: Yes - Caffeine Use Caffeine Use: Reports: None - Recreational Drug Use Recreational Drug Use: No - Living Situation & Occupation Living situation: Reports: Occupation: Employed H&P Review of Systems - Review of Systems: Review Of Systems: ROS reveals no pertinent complaints other than HPI. Exam - Exam Exam: See Below - Vital Signs Vital Signs: Last Vital Signs Temp 98.1 F 08/04/18 14:32 Pulse 64 08/04/18 14:32 Resp 16 08/04/18 14:32 BP 109/73 08/04/18 14:32 Pulse Ox 98 08/04/18 14:32 Weight: 181 lb - Exam Quality Assessment: No: Supplemental Oxygen General: Alert, Oriented HEENT: Conjunctiva Clear, EACs Clear, Mucosa Moist & [place], Posterior Pharynx Clear Neck: Supple, Trachea Midline Lungs: Clear to Auscultation, Normal Respiratory Effort Cardiovascular: Regular Rate, Regular Rhythm GI/Abdominal Exam: Normal Bowel Sounds, Soft, No Organomegaly, No Distention, Tender (Right upper quadrant tenderness without guarding or rebound.) Extremities: Normal Inspection, Normal Range of Motion, Non-Tender, No Pedal Edema, Normal Capillary Refill Skin: Warm, Dry, Intact Neuro Extensive - Mental Status: Alert, Oriented x3, Normal Mood/Affect Neuro Extensive - Motor, Sensory, Reflexes: CN II-XII Intact Psychiatric: Alert, Normal Affect, Normal Mood - Patient Data Lab Results Last 24 hrs: Laboratory Results - last 24 hr 08/04/18 08/04/18 08/04/18 Range/Units 11:32 11:32 11:32 WBC 7.08 (3.98-10.04) K/mm3 RBC 4.80 (3.98-5.22) M/mm3 Hgb 11.8 (11.2-15.7) gm/L Hct 37.5 (34.1-44.9) % MCV 78.1 L (79.4-94.8) fl MCH 24.6 L (25.6-32.2) pg MCHC 31.5 L (32.2-35.5) g/dl RDW Std Deviation 54.8 H (36.4-46.3) fL Plt Count 294 (182-369) K/mm3 MPV 9.4 (9.4-12.3) fl Neutrophils % (Manual) 69 H (40-60) % Band Neutrophils % 0 (0-10) % Lymphocytes % (Manual) 18 L (20-40) % Atypical Lymphs % 0 % Monocytes % (Manual) 5 (2-10) % Eosinophils % (Manual) 7 H (0.7-5.8) % Basophils % (Manual) 1 (0.1-1.2) Toxic Granulation 2+ moderate Platelet Estimate Adequate Polychromasia 1+ slight Hypochromasia 1+ slight Anisocytosis 1+ slight RBC Morph Comment Abnormal Sodium 138 (136-145) mEq/L Potassium 2.3 L* (3.5-5.1) mEq/L Chloride 101 (98-107) mEq/L Carbon Dioxide 29 D (21-32) mEq/L Anion Gap 10.3 (5-15) BUN 7 (7-18) mg/dL Creatinine 0.9 (0.55-1.02) mg/dL Est Cr Clr Drug Dosing 83.58 mL/min Estimated GFR (MDRD) > 60 (>60) mL/min BUN/Creatinine Ratio 7.8 L (14-18) Glucose 131 H (74-106) mg/dL Calcium 7.9 L (8.5-10.1) mg/dL Magnesium 1.6 L (1.8-2.4) mg/dl Total Bilirubin 0.4 (0.2-1.0) mg/dL AST 24 (15-37) U/L ALT 20 (14-59) U/L Alkaline Phosphatase 92 (46-116) U/L Troponin I (0.00-0.056) ng/mL Total Protein 5.1 L (6.4-8.2) g/dl Albumin 1.7 L (3.4-5.0) g/dl Globulin 3.4 gm/dL Albumin/Globulin Ratio 0.5 L (1-2) //19 Range/Units 11:32 WBC (3.98-10.04) K/mm3 RBC (3.98-5.22) M/mm3 Hgb (11.2-15.7) gm/L Hct (34.1-44.9) % MCV (79.4-94.8) fl MCH (25.6-32.2) pg MCHC (32.2-35.5) g/dl RDW Std Deviation (36.4-46.3) fL Plt Count (182-369) K/mm3 MPV (9.4-12.3) fl Neutrophils % (Manual) (40-60) % Band Neutrophils % (0-10) % Lymphocytes % (Manual) (20-40) % Atypical Lymphs % % Monocytes % (Manual) (2-10) % Eosinophils % (Manual) (0.7-5.8) % Basophils % (Manual) (0.1-1.2) Toxic Granulation Platelet Estimate Polychromasia Hypochromasia Anisocytosis RBC Morph Comment Sodium (136-145) mEq/L Potassium (3.5-5.1) mEq/L Chloride (98-107) mEq/L Carbon Dioxide (21-32) mEq/L Anion Gap (5-15) BUN (7-18) mg/dL Creatinine (0.55-1.02) mg/dL Est Cr Clr Drug Dosing mL/min Estimated GFR (MDRD) (>60) mL/min BUN/Creatinine Ratio (14-18) Glucose (74-106) mg/dL Calcium (8.5-10.1) mg/dL Magnesium (1.8-2.4) mg/dl Total Bilirubin (0.2-1.0) mg/dL AST (15-37) U/L ALT (14-59) U/L Alkaline Phosphatase (46-116) U/L Troponin I < 0.017 (0.00-0.056) ng/mL Total Protein (6.4-8.2) g/dl Albumin (3.4-5.0) g/dl Globulin gm/dL Albumin/Globulin Ratio (1-2) Result Diagrams: 08/04/18 11:32 08/04/18 11:32 EKG INTERPRETATION EKG Interpretation Comments: EKG done in the emergency room showed normal sinus rhythm with ventricular rate of 66 bpm. Gastric deviation with normal TN interval. T-wave inversion in V3 through 6, II, III, and aVF - Problem List (1) C. difficile diarrhea SNOMED Code(s): 3300295057094 ICD Code: A04.72 - ENTEROCOLITIS D/T CLOSTRIDIUM DIFFICILE, NOT SPCF RECUR Status: Acute Current Visit: Yes (2) Hypokalemia SNOMED Code(s): 98423921 ICD Code: E87.6 - HYPOKALEMIA Status: Acute Current Visit: Yes (3) Hypomagnesemia SNOMED Code(s): 728298271 ICD Code: E83.42 - HYPOMAGNESEMIA Status: Acute Priority: High Current Visit: No Problem List Initiated/Reviewed/Updated: Yes Orders Last 24hrs: Active Orders 24 hr Category Date Time Status Admission Status [Patient Status] [ADT] Routine ADT 08/04/18 13:03 Active Antiembolic Devices [RC] PER UNIT ROUTINE Care 08/04/18 15:59 Ordered Oxygen Therapy [RC] PRN Care 08/04/18 15:56 Ordered Up ad Jenifer [RC] ASDIRECTED Care 08/04/18 15:56 Ordered VTE/DVT Education [RC] PER UNIT ROUTINE Care 08/04/18 15:56 Ordered Vital Signs [RC] Q4H Care 08/04/18 15:56 Ordered OT Evaluation and Treatment [CONS] Routine Cons 08/04/18 16:00 Ordered PT Evaluation and Treatment [CONS] Routine Cons 08/04/18 16:00 Ordered Regular Diet [DIET] Diet 08/04/18 Dinner Active CBC WITH AUTO DIFF [HEME] AM Lab 08/05/18 05:11 Ordered COMPREHENSIVE METABOLIC PN,CMP [CHEM] AM Lab 08/05/18 05:11 Ordered MAGNESIUM [CHEM] AM Lab 08/05/18 05:11 Ordered Acetaminophen [Tylenol] Med 08/04/18 15:56 Ordered 650 mg PO Q4H PRN Ondansetron [Zofran ODT] Med 08/04/18 15:56 Ordered 4 mg PO Q4H PRN Ondansetron [Zofran] Med 08/04/18 15:56 Ordered 4 mg IV Q4H PRN Potassium Chloride [KCl 10 MEQ in Water 100 ML] 10 meq Med 08/04/18 15:00 Active Premix Bag 1 bag IV Q1H Potassium Chloride [Klor-Con M20] Med 08/04/18 21:00 Ordered 20 meq PO BEDTIME Ranitidine HCl Med 08/04/18 21:00 Ordered 150 mg PO BID Sodium Chloride 0.9% [Normal Saline] 1,000 ml Med 08/04/18 11:30 Active IV ASDIRECTED Sodium Chloride 0.9% [Normal Saline] 1,000 ml Med 08/04/18 14:30 Active IV ASDIRECTED Sodium Chloride 0.9% [Saline Flush] Med 08/04/18 11:24 Active 10 ml FLUSH ASDIRECTED PRN Antiembolic Hose [OM.PC] Per Unit Routine Oth 08/04/18 15:56 Ordered Peripheral IV Insertion Adult [OM.PC] Routine Oth 08/04/18 11:24 Ordered Code Status [Resuscitation Status] Routine Resus Stat 08/04/18 14:53 Ordered Medication Orders Acetaminophen (Tylenol) 650 mg PO Q4H PRN PRN Reason: Pain (Mild 1-3)/fever Famotidine (Pepcid) 20 mg PO BID BHAVANI Sodium Chloride (Normal Saline) 1,000 mls @ 500 mls/hr IV ASDIRECTED BHAVANI Last Admin: 08/04/18 11:39 Dose: 500 mls/hr Sodium Chloride (Normal Saline) 1,000 mls @ 125 mls/hr IV ASDIRECTED BHAVANI Last Admin: 08/04/18 14:26 Dose: 125 mls/hr Potassium Chloride 10 meq/ (Premix) 100 mls @ 100 mls/hr IV Q1H [facility] Stop: 08/04/18 18:59 Last Admin: 08/04/18 15:22 Dose: 100 mls/hr Ondansetron HCl (Zofran Odt) 4 mg PO Q4H PRN PRN Reason: nausea, able to take PO Ondansetron HCl (Zofran) 4 mg IV Q4H PRN PRN Reason: Nausea/Vomiting Potassium Chloride (Klor-Con M20) 20 meq PO BEDTIME [facility] Sodium Chloride (Saline Flush) 10 ml FLUSH ASDIRECTED PRN PRN Reason: Keep Vein Open Last Admin: 08/04/18 11:39 Dose: 10 ml Assessment/Plan Comment:: Assessment * 48-year-old female with history of unspecified colitis being admitted to observation for hypokalemia secondary to C. difficile colitis Plan * Replenish potassium both IV and by mouth over the next several hours * PT and OT to consult due to weakness * Contact cautions * Full code * VTE prophylaxis with compression stockings * Length of stay anticipated to be less than to midnight
[2018-08-04] MEDS: Potassium Chloride 20 MEQ Tab.ER PO SCH (20:47)
[2018-08-04] MEDS: Famotidine 20 MG Tab PO SCH (20:48)
[2018-08-05] MEDS: Potassium Chloride 10 MEQ in Premix Bag 1 BAG IV SCH ×4 (06:42→10:17)
[2018-08-05] MEDS: Acetaminophen 325 MG Tab PO PRN ×2 (06:43→21:27)
[2018-08-05] MEDS ORDERED: Sodium Chloride 0.9% 1,000 ML ONE (06:44)
[2018-08-05] MEDS: Famotidine 20 MG Tab PO SCH ×2 (08:06→20:57)
--- NOTE | 2018-08-05 09:24 | PCM.PN ---
- General Info Date of Service: 08/05/18 Admission Dx/Problem (Free Text): Admission Diagnosis/Problem Admission Diagnosis/Problem Hypokalemia - Review of Systems General: Reports: Weakness, Fatigue HEENT: Reports: No Symptoms Pulmonary: Reports: No Symptoms. Denies: Shortness of Breath, Cough Cardiovascular: Reports: No Symptoms. Denies: Chest Pain Gastrointestinal: Reports: Diarrhea - Patient Data Vitals - Most Recent: Last Vital Signs Temp 98.2 F 08/05/18 07:28 Pulse 64 08/05/18 07:28 Resp 16 08/05/18 07:28 BP 119/53 L 08/05/18 07:28 Pulse Ox 96 08/05/18 07:28 Weight - Most Recent: 182 lb 5 oz I&O - Last 24 Hours: Intake & Output 08/04/18 08/05/18 08/05/18 22:59 06:59 14:59 Intake Total 667 1375 Output Total 0 Balance 667 1375 Lab Results Last 24 Hours: Laboratory Results - last 24 hr 08/04/18 08/04/18 08/04/18 Range/Units 11:32 11:32 11:32 WBC 7.08 (3.98-10.04) K/mm3 RBC 4.80 (3.98-5.22) M/mm3 Hgb 11.8 (11.2-15.7) gm/L Hct 37.5 (34.1-44.9) % MCV 78.1 L (79.4-94.8) fl MCH 24.6 L (25.6-32.2) pg MCHC 31.5 L (32.2-35.5) g/dl RDW Std Deviation 54.8 H (36.4-46.3) fL Plt Count 294 (182-369) K/mm3 MPV 9.4 (9.4-12.3) fl Neut % (Auto) (34.0-71.1) % Lymph % (Auto) (19.3-51.7) % [place] % (Auto) (4.7-12.5) % Eos % (Auto) (0.7-5.8) Baso % (Auto) (0.1-1.2) % Neut # (Auto) (1.56-6.13) K/mm3 Lymph # (Auto) (1.18-3.74) K/mm3 [place] # (Auto) (0.24-0.36) K/mm3 Eos # (Auto) (0.04-0.36) K/mm3 Baso # (Auto) (0.01-0.08) K/mm3 Neutrophils % (Manual) 69 H (40-60) % Band Neutrophils % 0 (0-10) % Lymphocytes % (Manual) 18 L (20-40) % Atypical Lymphs % 0 % Monocytes % (Manual) 5 (2-10) % Eosinophils % (Manual) 7 H (0.7-5.8) % Basophils % (Manual) 1 (0.1-1.2) Toxic Granulation 2+ moderate Platelet Estimate Adequate Polychromasia 1+ slight Hypochromasia 1+ slight Anisocytosis 1+ slight RBC Morph Comment Abnormal Sodium 138 (136-145) mEq/L Potassium 2.3 L* (3.5-5.1) mEq/L Chloride 101 (98-107) mEq/L Carbon Dioxide 29 D (21-32) mEq/L Anion Gap 10.3 (5-15) BUN 7 (7-18) mg/dL Creatinine 0.9 (0.55-1.02) mg/dL Est Cr Clr Drug Dosing 83.58 mL/min Estimated GFR (MDRD) > 60 (>60) mL/min BUN/Creatinine Ratio 7.8 L (14-18) Glucose 131 H (74-106) mg/dL Calcium 7.9 L (8.5-10.1) mg/dL Magnesium 1.6 L (1.8-2.4) mg/dl Total Bilirubin 0.4 (0.2-1.0) mg/dL AST 24 (15-37) U/L ALT 20 (14-59) U/L Alkaline Phosphatase 92 (46-116) U/L Troponin I (0.00-0.056) ng/mL Total Protein 5.1 L (6.4-8.2) g/dl Albumin 1.7 L (3.4-5.0) g/dl Globulin 3.4 gm/dL Albumin/Globulin Ratio 0.5 L (1-2) 08/04/18 08/05/18 08/05/18 Range/Units 11:32 04:48 04:48 WBC 6.08 (3.98-10.04) K/mm3 RBC 4.52 (3.98-5.22) M/mm3 Hgb 10.8 L (11.2-15.7) gm/L Hct 36.0 (34.1-44.9) % MCV 79.6 (79.4-94.8) fl MCH 23.9 L (25.6-32.2) pg MCHC 30.0 L (32.2-35.5) g/dl RDW Std Deviation 56.1 H (36.4-46.3) fL Plt Count 282 (182-369) K/mm3 MPV 9.9 (9.4-12.3) fl Neut % (Auto) 53.7 (34.0-71.1) % Lymph % (Auto) 23.2 (19.3-51.7) % [place] % (Auto) 10.2 (4.7-12.5) % Eos % (Auto) 12.0 H (0.7-5.8) Baso % (Auto) 0.7 (0.1-1.2) % Neut # (Auto) 3.27 (1.56-6.13) K/mm3 Lymph # (Auto) 1.41 (1.18-3.74) K/mm3 [place] # (Auto) 0.62 H (0.24-0.36) K/mm3 Eos # (Auto) 0.73 H (0.04-0.36) K/mm3 Baso # (Auto) 0.04 (0.01-0.08) K/mm3 Neutrophils % (Manual) (40-60) % Band Neutrophils % (0-10) % Lymphocytes % (Manual) (20-40) % Atypical Lymphs % % Monocytes % (Manual) (2-10) % Eosinophils % (Manual) (0.7-5.8) % Basophils % (Manual) (0.1-1.2) Toxic Granulation Platelet Estimate Polychromasia Hypochromasia Anisocytosis RBC Morph Comment Sodium 140 (136-145) mEq/L Potassium 3.0 L (3.5-5.1) mEq/L Chloride 106 (98-107) mEq/L Carbon Dioxide 29 (21-32) mEq/L Anion Gap 8.0 (5-15) BUN 6 L (7-18) mg/dL Creatinine 0.9 (0.55-1.02) mg/dL Est Cr Clr Drug Dosing 83.58 mL/min Estimated GFR (MDRD) > 60 (>60) mL/min BUN/Creatinine Ratio 6.7 L (14-18) Glucose 101 (74-106) mg/dL Calcium 7.8 L (8.5-10.1) mg/dL Magnesium 2.0 (1.8-2.4) mg/dl Total Bilirubin 0.4 (0.2-1.0) mg/dL AST 21 (15-37) U/L ALT 9 L (14-59) U/L Alkaline Phosphatase 84 (46-116) U/L Troponin I < 0.017 (0.00-0.056) ng/mL Total Protein 4.6 L (6.4-8.2) g/dl Albumin 1.5 L (3.4-5.0) g/dl Globulin 3.1 gm/dL Albumin/Globulin Ratio 0.5 L (1-2) Med Orders - Current: Current Medications Acetaminophen (Tylenol) 650 mg PO Q4H PRN PRN Reason: Pain (Mild 1-3)/fever Last Admin: 08/05/18 06:43 Dose: 650 mg Famotidine (Pepcid) 20 mg PO BID [facility] Last Admin: 08/05/18 08:06 Dose: 20 mg Potassium Chloride 10 meq/ (Premix) 100 mls @ 100 mls/hr IV Q1H [facility] Stop: 08/05/18 10:29 Last Admin: 08/05/18 09:13 Dose: 100 mls/hr Ondansetron HCl (Zofran Odt) 4 mg PO Q4H PRN PRN Reason: nausea, able to take PO Ondansetron HCl (Zofran) 4 mg IV Q4H PRN PRN Reason: Nausea/Vomiting Potassium Chloride (Klor-Con M20) 20 meq PO BEDTIME [facility] Last Admin: 08/04/18 20:47 Dose: 20 meq Sodium Chloride (Saline Flush) 10 ml FLUSH ASDIRECTED PRN PRN Reason: Keep Vein Open Last Admin: 08/04/18 11:39 Dose: 10 ml Discontinued Medications Sodium Chloride (Normal Saline) 1,000 mls @ 500 mls/hr IV ASDIRECTED [facility] Last Admin: 08/04/18 11:39 Dose: 500 mls/hr Potassium Chloride 10 meq/ (Premix) 100 mls @ 100 mls/hr IV ASDIRECTED ONE Stop: 08/04/18 13:10 Last Admin: 08/04/18 12:44 Dose: 100 mls/hr Magnesium Sulfate 2 gm/ Premix 50 mls @ 25 mls/hr IV ONETIME ONE Stop: 08/04/18 15:37 Last Admin: 08/04/18 13:47 Dose: 25 mls/hr Sodium Chloride (Normal Saline) 1,000 mls @ 125 mls/hr IV ASDIRECTED [facility] Last Admin: 08/04/18 20:55 Dose: 125 mls/hr Potassium Chloride 10 meq/ (Premix) 100 mls @ 100 mls/hr IV Q1H [facility] Stop: 08/04/18 18:59 Last Admin: 08/04/18 18:42 Dose: 100 mls/hr Sodium Chloride (Normal Saline) Confirm Administered Dose 1,000 mls @ as directed .ROUTE .STK-MED ONE Stop: 08/05/18 06:45 Last Admin: 08/05/18 06:57 Dose: Not Given Ondansetron HCl (Zofran) 4 mg IVPUSH ONETIME ONE Stop: 08/04/18 11:25 Last Admin: 08/04/18 11:41 Dose: 4 mg - Exam Quality Assessment: No: Supplemental Oxygen General: Alert, Oriented HEENT: Pupils Equal, Pupils Reactive Neck: Supple Lungs: Clear to Auscultation, Normal Respiratory Effort Cardiovascular: Regular Rate, Regular Rhythm Extremities: Normal Inspection, Normal Range of Motion, Non-Tender, No Pedal Edema Skin: Warm, Dry, Intact Neurological: No New Focal Deficit Psy/Mental Status: Alert, Normal Affect, Normal Mood - Problem List & Annotations (1) C. difficile diarrhea SNOMED Code(s): 9539248708324 Code(s): A04.72 - ENTEROCOLITIS D/T CLOSTRIDIUM DIFFICILE, NOT SPCF RECUR Status: Acute Current Visit: Yes (2) Hypokalemia SNOMED Code(s): 67995846 Code(s): E87.6 - HYPOKALEMIA Status: Acute Current Visit: Yes (3) Hypomagnesemia SNOMED Code(s): 193105311 Code(s): E83.42 - HYPOMAGNESEMIA Status: Acute Priority: High Current Visit: No - Problem List Review Problem List Initiated/Reviewed/Updated: Yes - My Orders Last 24 Hours: My Active Orders 08/04/18 14:53 Code Status [Resuscitation Status] Routine 08/04/18 15:56 Oxygen Therapy [RC] PRN Up ad Jenifer [RC] ASDIRECTED VTE/DVT Education [RC] PER UNIT ROUTINE Vital Signs [RC] Q4HR Acetaminophen [Tylenol] 650 mg PO Q4H PRN Ondansetron [Zofran ODT] 4 mg PO Q4H PRN Ondansetron [Zofran] 4 mg IV Q4H PRN Antiembolic Hose [OM.PC] Per Unit Routine 08/04/18 15:59 Antiembolic Devices [RC] PER UNIT ROUTINE 08/04/18 16:00 OT Evaluation and Treatment [CONS] Routine PT Evaluation and Treatment [CONS] Routine 08/04/18 21:00 Famotidine [Pepcid] 20 mg PO BID Potassium Chloride [Klor-Con M20] 20 meq PO BEDTIME 08/04/18 Dinner Regular Diet [DIET] 08/05/18 06:30 Potassium Chloride [KCl 10 MEQ in Water 100 ML] 10 meq Premix Bag 1 bag IV Q1H - Plan Plan:: Assessment * 48-year-old female with history of unspecified colitis being admitted to observation for hypokalemia secondary to C. difficile colitis Plan * Potassium up to 3.0 from 2.3 yesterday. Continue IV and oral replacement and planned discharge tomorrow. * PT and OT to consult due to weakness * Contact cautions * Full code * VTE prophylaxis with compression stockings * Planned discharge tomorrow.
[2018-08-05] MEDS: Potassium Chloride 20 MEQ Tab.ER PO SCH (20:57)
[2018-08-05] MEDS ORDERED: Lactated Ringers 500 ML IV ONE (21:07)
[2018-08-05] MEDS ORDERED: Potassium Chloride 10 MEQ/5 ML SDV IV ONE (22:14)
[2018-08-05] MEDS ORDERED: Lactated Ringers 1,000 ML IV SCH (22:15)
[2018-08-05] MEDS ORDERED: Potassium Chloride 100 ML IV ONE (22:30)
[2018-08-06] MEDS ORDERED: Potassium Chloride 10 MEQ/5 ML SDV IV ONE (02:13)
[2018-08-06] MEDS ORDERED: Potassium Chloride 100 ML IV ONE (02:15)
[2018-08-06] MEDS ORDERED: Sodium Chloride 0.9% 100 ML IV SCH (02:15)
[2018-08-06] MEDS ORDERED: Magnesium Sulfate/Water 4 GM in Premix Bag 1 BAG IV ONE (06:26)
[2018-08-06] MEDS: Potassium Chloride 10 MEQ in Premix Bag 1 BAG IV SCH ×4 (06:47→12:46)
[2018-08-06] MEDS ORDERED: Sodium Chloride 0.9% 500 ML IV ONE (06:48)
[2018-08-06] MEDS: Famotidine 20 MG Tab PO SCH ×2 (08:45→20:35)
--- NOTE | 2018-08-06 09:40 | PCM.PN ---
- General Info Date of Service: 08/06/18 Admission Dx/Problem (Free Text): Admission Diagnosis/Problem Admission Diagnosis/Problem Hypokalemia Subjective Update: Patient developed hypotension yesterday evening. She was given 500 mL of LR and started on 100 mL per hour. She did well over the evening until early this morning when again she had systolic blood pressure in the 70s. She was given another 500 mL of normal saline and blood pressures did increase up to 122 systolic. Also, potassium has been hard to replace and she is sitting at 3.2. Patient currently feels well with minimal fatigue or weakness. She does state that during the night she had difficulty sleeping and she is more tired because of that. Patient also states that her bowel movements have improved and she is having semisolid bowel movements twice a day now. Unfortunately she is still severely malnourished with an albumin down to 1.4 today. - Review of Systems General: Reports: Other (Tired) HEENT: Reports: No Symptoms Pulmonary: Reports: No Symptoms. Denies: Shortness of Breath, Cough Cardiovascular: Reports: No Symptoms. Denies: Chest Pain, Palpitations - Patient Data Vitals - Most Recent: Last Vital Signs Temp 99.3 F 08/06/18 08:34 Pulse 74 08/06/18 08:34 Resp 20 08/06/18 08:34 BP 122/73 08/06/18 08:34 Pulse Ox 97 08/06/18 08:34 Weight - Most Recent: 188 lb I&O - Last 24 Hours: Intake & Output 08/05/18 08/06/18 08/06/18 22:59 06:59 14:59 Intake Total 1400 2040 500 Balance 1400 2040 500 Lab Results Last 24 Hours: Laboratory Results - last 24 hr 08/05/18 08/05/18 08/06/18 Range/Units 21:22 21:22 04:34 WBC 6.32 (3.98-10.04) K/mm3 RBC 4.17 (3.98-5.22) M/mm3 Hgb 10.2 L (11.2-15.7) gm/L Hct 33.9 L (34.1-44.9) % MCV 81.3 (79.4-94.8) fl MCH 24.5 L (25.6-32.2) pg MCHC 30.1 L (32.2-35.5) g/dl RDW Std Deviation 58.2 H (36.4-46.3) fL Plt Count 260 (182-369) K/mm3 MPV 9.5 (9.4-12.3) fl Neut % (Auto) 51.6 (34.0-71.1) % Lymph % (Auto) 26.1 (19.3-51.7) % [place] % (Auto) 7.8 (4.7-12.5) % Eos % (Auto) 13.8 H (0.7-5.8) Baso % (Auto) 0.5 (0.1-1.2) % Neut # (Auto) 3.27 (1.56-6.13) K/mm3 Lymph # (Auto) 1.65 (1.18-3.74) K/mm3 [place] # (Auto) 0.49 H (0.24-0.36) K/mm3 Eos # (Auto) 0.87 H (0.04-0.36) K/mm3 Baso # (Auto) 0.03 (0.01-0.08) K/mm3 Sodium 141 141 (136-145) mEq/L Potassium 3.2 L 3.2 L (3.5-5.1) mEq/L Chloride 105 108 H (98-107) mEq/L Carbon Dioxide 27 24 (21-32) mEq/L Anion Gap 12.2 12.2 (5-15) BUN 7 7 (7-18) mg/dL Creatinine 0.9 0.8 (0.55-1.02) mg/dL Est Cr Clr Drug Dosing 83.58 94.03 mL/min Estimated GFR (MDRD) > 60 > 60 (>60) mL/min BUN/Creatinine Ratio 7.8 L 8.8 L (14-18) Glucose 84 110 H (74-106) mg/dL Calcium 7.5 L 7.6 L (8.5-10.1) mg/dL Phosphorus 2.6 (2.6-4.7) mg/dL Magnesium 1.5 L (1.8-2.4) mg/dl Total Bilirubin 0.2 (0.2-1.0) mg/dL AST 26 (15-37) U/L ALT 21 (14-59) U/L Alkaline Phosphatase 87 (46-116) U/L Total Protein 4.3 L (6.4-8.2) g/dl Albumin 1.4 L (3.4-5.0) g/dl Globulin 2.9 gm/dL Albumin/Globulin Ratio 0.5 L (1-2) Med Orders - Current: Current Medications Acetaminophen (Tylenol) 650 mg PO Q4H PRN PRN Reason: Pain (Mild 1-3)/fever Last Admin: 08/05/18 21:27 Dose: 650 mg Famotidine (Pepcid) 20 mg PO BID [facility] Last Admin: 08/06/18 08:45 Dose: 20 mg Lactated Ringer's (Ringers, Lactated) 1,000 mls @ 100 mls/hr IV ASDIRECTED [facility] Last Admin: 08/06/18 06:39 Dose: 100 mls/hr Magnesium Sulfate 4 gm/ Premix 50 mls @ 12.5 mls/hr IV ONETIME ONE Stop: 08/06/18 10:25 Last Admin: 08/06/18 06:39 Dose: 12.5 mls/hr Potassium Chloride 10 meq/ (Premix) 100 mls @ 50 mls/hr IV Q2H [facility] Stop: 08/06/18 14:29 Ondansetron HCl (Zofran Odt) 4 mg PO Q4H PRN PRN Reason: nausea, able to take PO Ondansetron HCl (Zofran) 4 mg IV Q4H PRN PRN Reason: Nausea/Vomiting Potassium Chloride (Klor-Con M20) 20 meq PO BEDTIME [facility] Last Admin: 08/05/18 20:57 Dose: 20 meq Potassium Chloride (Klor-Con M20) 20 meq PO ONETIME ONE Stop: 08/06/18 12:01 Sodium Chloride (Saline Flush) 10 ml FLUSH ASDIRECTED PRN PRN Reason: Keep Vein Open Last Admin: 08/04/18 11:39 Dose: 10 ml Discontinued Medications Sodium Chloride (Normal Saline) 1,000 mls @ 500 mls/hr IV ASDIRECTED [facility] Last Admin: 08/04/18 11:39 Dose: 500 mls/hr Potassium Chloride 10 meq/ (Premix) 100 mls @ 100 mls/hr IV ASDIRECTED ONE Stop: 08/04/18 13:10 Last Admin: 08/04/18 12:44 Dose: 100 mls/hr Magnesium Sulfate 2 gm/ Premix 50 mls @ 25 mls/hr IV ONETIME ONE Stop: 08/04/18 15:37 Last Admin: 08/04/18 13:47 Dose: 25 mls/hr Sodium Chloride (Normal Saline) 1,000 mls @ 125 mls/hr IV ASDIRECTED [facility] Last Admin: 08/04/18 20:55 Dose: 125 mls/hr Potassium Chloride 10 meq/ (Premix) 100 mls @ 100 mls/hr IV Q1H [facility] Stop: 08/04/18 18:59 Last Admin: 08/04/18 18:42 Dose: 100 mls/hr Potassium Chloride 10 meq/ (Premix) 100 mls @ 100 mls/hr IV Q1H [facility] Stop: 08/05/18 10:29 Last Admin: 08/05/18 10:17 Dose: 100 mls/hr Sodium Chloride (Normal Saline) Confirm Administered Dose 1,000 mls @ as directed .ROUTE .STK-MED ONE Stop: 08/05/18 06:45 Last Admin: 08/05/18 06:57 Dose: Not Given Lactated Ringer's (Ringers, Lactated) 500 mls @ 999 mls/hr IV .BOLUS ONE Stop: 08/05/18 21:37 Last Admin: 08/05/18 21:27 Dose: 999 mls/hr Potassium Chloride (Kcl 10 Meq In Water 100 Ml) 100 mls @ 100 mls/hr IV ONETIME ONE Stop: 08/05/18 23:29 Last Admin: 08/06/18 00:25 Dose: 100 mls/hr Sodium Chloride (Normal Saline) 100 mls @ 100 mls/hr IV ASDIRECTED [facility] Last Admin: 08/06/18 02:23 Dose: 100 mls/hr Potassium Chloride (Kcl 10 Meq In Water 100 Ml) 100 mls @ 100 mls/hr IV ONETIME ONE Stop: 08/06/18 03:14 Last Admin: 08/06/18 02:23 Dose: 100 mls/hr Potassium Chloride 10 meq/ (Premix) 100 mls @ 100 mls/hr IV Q1H [facility] Stop: 08/06/18 08:29 Last Admin: 08/06/18 06:47 Dose: 100 mls/hr Sodium Chloride (Normal Saline) 500 mls @ 999 mls/hr IV .BOLUS ONE Stop: 08/06/18 07:18 Last Admin: 08/06/18 07:07 Dose: 300 mls/hr Ondansetron HCl (Zofran) 4 mg IVPUSH ONETIME ONE Stop: 08/04/18 11:25 Last Admin: 08/04/18 11:41 Dose: 4 mg - Exam Quality Assessment: No: Supplemental Oxygen General: Alert, Oriented HEENT: Pupils Equal Neck: Supple Lungs: Clear to Auscultation, Normal Respiratory Effort Cardiovascular: Regular Rate, Regular Rhythm GI/Abdominal Exam: Normal Bowel Sounds, Soft, Non-Tender, No Organomegaly, No Distention Extremities: Normal Inspection, Normal Range of Motion, Non-Tender, No Pedal Edema, Normal Capillary Refill Skin: Warm, Dry, Intact Neurological: No New Focal Deficit Psy/Mental Status: Alert, Normal Affect, Normal Mood - Problem List & Annotations (1) C. difficile diarrhea SNOMED Code(s): 4914319936380 Code(s): A04.72 - ENTEROCOLITIS D/T CLOSTRIDIUM DIFFICILE, NOT SPCF RECUR Status: Acute Current Visit: Yes (2) Hypokalemia SNOMED Code(s): 77963400 Code(s): E87.6 - HYPOKALEMIA Status: Acute Current Visit: Yes (3) Hypomagnesemia SNOMED Code(s): 877199670 Code(s): E83.42 - HYPOMAGNESEMIA Status: Acute Priority: High Current Visit: No - Problem List Review Problem List Initiated/Reviewed/Updated: Yes - My Orders Last 24 Hours: My Active Orders 08/05/18 22:15 Lactated Ringers [Ringers, Lactated] 1,000 ml IV ASDIRECTED 08/06/18 06:26 Magnesium Sulfate/Water [Magnesium Sulfate in Water Premix] 4 gm Premix Bag 1 bag IV ONETIME 08/06/18 06:27 Consult to [employer]ing Supervisor [CONS] Routine 08/06/18 09:23 MICROALBUMIN/CREAT RATIO,URINE [URCHEM] Routine UA W/O MICROSCOPIC [URIN] Routine 08/06/18 10:30 Potassium Chloride [KCl 10 MEQ in Water 100 ML] 10 meq Premix Bag 1 bag IV Q2H 08/06/18 12:00 Potassium Chloride [Klor-Con M20] 20 meq PO ONETIME ONE 08/07/18 05:11 CBC WITH AUTO DIFF [HEME] AM CMP [COMPREHENSIVE METABOLIC PN,CMP] [CHEM] AM INR,PT,PROTHROMBIN TIME [COAG] AM MAGNESIUM [CHEM] AM PTT,PARTIAL THROMBOPLSTIN TIME [COAG] AM - Plan Plan:: Assessment * 48-year-old female with history of gastric bypass surgery and unspecified colitis being admitted to observation for hypokalemia secondary to C. difficile colitis * 2 episodes of hypertension with systolic blood pressure of 70 * Malnutrition - likely multifactorial due to decreased by mouth intake, malabsorption secondary to her gastric bypass, and malabsorption secondary to her C. difficile infection * Hypoalbuminemia secondary to poor absorption Plan * Potassium 3.2. Continue IV and oral replacement and planned discharge tomorrow. * LR 100 mL per hour * PT and OT to consult due to weakness * Contact precautions. * Nutrition consult * Urine for protein * CBC, CMP, mag, INR, PTT, vitamin B12, 25 hydroxyvitamin D in the morning * Full code * VTE prophylaxis with compression stockings * Planned discharge tomorrow.
[2018-08-06] MEDS: Potassium Chloride 10% 20 MEQ/15 ML Soln 15 ML UD Cup PO SCH ×2 (11:23→20:35)
[2018-08-06] MEDS ORDERED: Potassium Chloride 20 MEQ Tab.ER PO ONE (12:00)
[2018-08-06] MEDS: Lactated Ringers 1,000 ML IV SCH (17:29)
[2018-08-07] MEDS: Lactated Ringers 1,000 ML IV SCH (04:00)
[2018-08-07] MEDS ORDERED: Magnesium Sulfate/Water 4 GM in Premix Bag 1 BAG IV ONE (06:38)
[2018-08-07 07:13] LABS: VITAMIN D,25-HYDROXY 24.8 ng/ml (30.0-100.0)
--- NOTE | 2018-08-07 07:21 | PCM.DCSUM1 ---
Discharge Summary - Hospital Course HPI Initial Comments: History old female admitted for observation through the emergency room for severe hypokalemia secondary to diarrhea. Starting in May patient was having lower GI symptoms including abdominal pain and passing blood clots. She has a history of an undetermined colitis several years ago. She went to her primary care provider and a CT scan of the abdomen and pelvis was performed. There was concern for diverticulitis and she was started on 2 antibiotics. Patient developed significant and severe diarrhea and general malaise. After 7-10 days of antibiotics she did get referred to surgery who reviewed the CT scan and did stool cultures. Patient was out for C. difficile and started on 10 day course of vancomycin. Patient finished that 10 day course of vancomycin 3 days ago. Patient continues to feel weak and tired so came in today with lower abdominal pain and diarrhea. She states the diarrhea is starting to improve and she is able to keep fluids down. She denies any fever or chills. She denies any current hematochezia or melena. Diagnosis: Stroke: No - Discharge Data Discharge Date: 08/07/18 (Admit date: 08/04/18) Discharge Disposition: Home, Self-Care 01 Condition: Fair - Discharge Diagnosis/Problem(s) (1) C. difficile diarrhea SNOMED Code(s): 3109096396275 ICD Code: A04.72 - ENTEROCOLITIS D/T CLOSTRIDIUM DIFFICILE, NOT SPCF RECUR Status: Acute Priority: High Current Visit: Yes (2) Hypokalemia SNOMED Code(s): 30270842 ICD Code: E87.6 - HYPOKALEMIA Status: Acute Priority: High Current Visit: Yes (3) Hypomagnesemia SNOMED Code(s): 272948308 ICD Code: E83.42 - HYPOMAGNESEMIA Status: Acute Priority: High Current Visit: Yes (4) JUSTICE (iron deficiency anemia) SNOMED Code(s): 21441985 ICD Code: D50.9 - IRON DEFICIENCY ANEMIA, UNSPECIFIED Status: Acute Priority: High Current Visit: Yes Qualifiers: Iron deficiency anemia type: unspecified iron deficiency Qualified Code(s) : D50.9 - Iron deficiency anemia, unspecified (5) Vitamin D deficiency SNOMED Code(s): 02852923 ICD Code: E55.9 - VITAMIN D DEFICIENCY, UNSPECIFIED Status: Acute Priority: High Current Visit: Yes - Patient Summary/Data Consults: Consultations 08/04/18 16:00 OT Evaluation and Treatment [CONS] Routine PT Evaluation and Treatment [CONS] Routine 08/06/18 06:27 Consult to [employer] Measures Abstractor [CONS] Routine Labs Pending at D/C: None Recommended Follow-up Testing/Procedures: Follow-up with PCP within 5 days Follow-up with GI as discussed Hospital Course: Agnes Sumner was admitted for electrolyte disorders as well as weakness and general malaise. She was slow to respond to treatment and was eventually upgraded to full inpatient. Potassium and magnesium were supplemented. She did report that her stools continued to remain formed. She was noted to be hypotensive on several occasions was given IV fluid. She reports she does normally run on the lower end with her blood pressures. She was asymptomatic throughout these episodes. He does report more energy. Her albumin was found to be quite low and we discussed protein intake. She did see our dietitian. We discussed proper intake and staying hydrated. Iron panel was obtained and was found to have low iron at 21, TIBC at 153, percent saturation at 14, transferrin at 122. Vitamin B12 was obtained and was very high at 2337. She is on a supplement for this and we discussed her decreasing her dosing. Vitamin D was also low. She reports she has not been taking this and was instructed to resume her home supplementation. She does report a remote history of prior colitis and this was discussed. She would benefit from a GI consult and already has one scheduled. She would likely also benefit from a colonoscopy. She did see PT/OT and was cleared for discharge home with home exercises. She will be discharged today. She was sent a prescription for 3 days of by mouth potassium, 5 days of by mouth magnesium, and her vitamin B supplementation was decreased from daily to every other day. She was instructed to follow-up with her primary care provider within 5 days of discharge and GI as we had discussed. We did address the possibility of her C. difficile returning and proper hygiene around the house to ensure no re- contamination or transmission of the disease. - Patient Instructions Diet: Usual Diet as Tolerated Activity: As Tolerated Notify Provider of: Fever, Increased Pain, Nausea and/or Vomiting - Discharge Plan *PRESCRIPTION DRUG MONITORING PROGRAM REVIEWED*: No *COPY OF PRESCRIPTION DRUG MONITORING REPORT IN PATIENT EMILY: No Prescriptions/Med Rec: Cyanocobalamin/Folic Acid [Vitamin K33-Ctzkb Acid] 1 tab PO ASDIRECTED #1 tablet Ferrous Sulfate 325 mg PO PCBREAKFAST #15 tablet Magnesium Oxide [Magnesium] 400 mg PO DAILY #4 tablet Potassium Chloride [Potassium Chloride Solution] 20 meq PO BID 3 Days #1 cup Home Medications: Home Meds Omeprazole 20 mg PO DAILY 07/21/18 [History] Aspirin 81 mg PO DAILY 08/04/18 [History] Cholecalciferol (Vitamin D3) [Vitamin D3] 5,000 unit PO DAILY 08/04/18 [History] L.acidoph,Paracasei, B.lactis [Probiotic] 1 each PO DAILY 08/04/18 [History] Multivitamin [Multi-Day Vitamins] 1 each PO DAILY 08/04/18 [History] Ranitidine HCl [Ranitidine] 150 mg PO BID 08/04/18 [History] Cyanocobalamin/Folic Acid [Vitamin P74-Pggit Acid] 1 tab PO ASDIRECTED #1 tablet 08/07/18 [Rx] Ferrous Sulfate 325 mg PO PCBREAKFAST #15 tablet 08/07/18 [Rx] Magnesium Oxide [Magnesium] 400 mg PO DAILY #4 tablet 08/07/18 [Rx] Potassium Chloride [Potassium Chloride Solution] 20 meq PO BID 3 Days #1 cup [Rx] Oxygen Therapy Mode: Room Air Patient Handouts: Preventing Iron Deficiency Anemia, Adult, Hypomagnesemia, Hypokalemia, Potassium Content of Foods Referrals: Marita Wong, [employer] [Primary Care Provider] - - Discharge Summary/Plan Comment DC Time >30 min.: Yes (45 minutes) - General Info Date of Service: 08/07/18 Admission Dx/Problem (Free Text: Admission Diagnosis/Problem Admission Diagnosis/Problem Hypokalemia Subjective Update: 08/06/18:Patient developed hypotension yesterday evening. She was given 500 mL of LR and started on 100 mL per hour. She did well over the evening until early this morning when again she had systolic blood pressure in the 70s. She was given another 500 mL of normal saline and blood pressures did increase up to 122 systolic. Also, potassium has been hard to replace and she is sitting at 3.2. Patient currently feels well with minimal fatigue or weakness. She does state that during the night she had difficulty sleeping and she is more tired because of that. Patient also states that her bowel movements have improved and she is having semisolid bowel movements twice a day now. Unfortunately she is still severely malnourished with an albumin down to 1.4 today. 08/07/18: In to see Agnes. She is sitting up in bed and reports she feels pretty good. Nursing did report some blood pressures with systolic in the 70s however patient has been asymptomatic with these. We did attempt a bolus today but due to her IV size it was only able to be given at 250 mL per hour. Blood pressure was rechecked and did respond well with this IV running. It is felt she likely responds rapidly, even before IV fluids are given, to this hypotension. We discussed what to do should she become hypotensive, dizzy, etc. We discussed checking her blood pressure regularly. We discussed proper oral intake including hydration and her need for protein. Overall she looks very good clinically. Magnesium was low and was supplemented however her potassium remains normal. Functional Status: Reports: Pain Controlled, Tolerating Diet, Ambulating, Urinating. Denies: New Symptoms - Review of Systems General: Reports: No Symptoms. Denies: Fever, Weakness, Fatigue, Malaise HEENT: Reports: No Symptoms. Denies: Headaches, Sore Throat Pulmonary: Reports: No Symptoms. Denies: Shortness of Breath, Pleuritic Chest Pain, Cough, Sputum, Wheezing Cardiovascular: Reports: Edema. Denies: Chest Pain, Palpitations, Dyspnea on Exertion, Lightheadedness Gastrointestinal: Reports: No Symptoms. Denies: Abdominal Pain, Constipation, Diarrhea, Nausea, Vomiting Genitourinary: Reports: No Symptoms. Denies: Pain Musculoskeletal: Reports: No Symptoms Skin: Reports: No Symptoms. Denies: Cyanosis Neurological: Reports: No Symptoms. Denies: Confusion, Difficulty Walking, Gait Disturbance Psychiatric: Reports: No Symptoms - Patient Data Vitals - Most Recent: Last Vital Signs Temp 98.8 F 08/07/18 03:54 Pulse 63 08/07/18 03:54 Resp 18 08/07/18 03:54 BP 99/40 L 08/07/18 06:04 Pulse Ox 95 08/07/18 03:54 Weight - Most Recent: 192 lb 11.2 oz I&O - Last 24 hours: Intake & Output 08/06/18 08/07/18 08/07/18 22:59 06:59 14:59 Intake Total 710 1771 Balance 710 1771 Lab Results - Last 24 hrs: Laboratory Results - last 24 hr 08/06/18 08/06/18 08/07/18 Range/Units 12:00 12:00 05:38 WBC 6.00 (3.98-10.04) K/mm3 RBC 4.21 (3.98-5.22) M/mm3 Hgb 10.2 L (11.2-15.7) gm/L Hct 34.0 L (34.1-44.9) % MCV 80.8 (79.4-94.8) fl MCH 24.2 L (25.6-32.2) pg MCHC 30.0 L (32.2-35.5) g/dl RDW Std Deviation 58.7 H (36.4-46.3) fL Plt Count 228 (182-369) K/mm3 MPV 10.1 (9.4-12.3) fl Neut % (Auto) 49.8 (34.0-71.1) % Lymph % (Auto) 29.3 (19.3-51.7) % [place] % (Auto) 8.5 (4.7-12.5) % Eos % (Auto) 12.2 H (0.7-5.8) Baso % (Auto) 0.2 (0.1-1.2) % Neut # (Auto) 2.99 (1.56-6.13) K/mm3 Lymph # (Auto) 1.76 (1.18-3.74) K/mm3 [place] # (Auto) 0.51 H (0.24-0.36) K/mm3 Eos # (Auto) 0.73 H (0.04-0.36) K/mm3 Baso # (Auto) 0.01 (0.01-0.08) K/mm3 Manual Slide Review Not Reportable PT (9.5-12.1) SECONDS INR APTT (24-31) SECONDS Sodium (136-145) mEq/L Potassium (3.5-5.1) mEq/L Chloride (98-107) mEq/L Carbon Dioxide (21-32) mEq/L Anion Gap (5-15) BUN (7-18) mg/dL Creatinine (0.55-1.02) mg/dL Est Cr Clr Drug Dosing mL/min Estimated GFR (MDRD) (>60) mL/min BUN/Creatinine Ratio (14-18) Glucose (74-106) mg/dL Calcium (8.5-10.1) mg/dL Magnesium (1.8-2.4) mg/dl Total Bilirubin (0.2-1.0) mg/dL AST (15-37) U/L ALT (14-59) U/L Alkaline Phosphatase (46-116) U/L Total Protein (6.4-8.2) g/dl Albumin (3.4-5.0) g/dl Globulin gm/dL Albumin/Globulin Ratio (1-2) Urine Color Light yellow (Yellow) Urine Appearance Clear (Clear) Urine pH 6.5 (5.0-8.0) Ur Specific [place] 1.015 (1.005-1.030) Urine Protein Negative (Negative) Urine Glucose (UA) Negative (Negative) Urine Ketones Negative (Negative) Urine Occult Blood Trace-lysed H (Negative) Urine Nitrite Negative (Negative) Urine Bilirubin Negative (Negative) Urine Urobilinogen 0.2 (0.2-1.0) Ur Leukocyte Esterase Negative (Negative) Ur Random Creatinine 16.4 L (30.0-125.0) mg/dL Ur Random Microalbumin 1.6 (1.3-20.0) mg/L Microalb/Creat Ratio 9.7 (0-30) mg/g 08/07/18 08/07/18 Range/Units 05:38 05:38 WBC (3.98-10.04) K/mm3 RBC (3.98-5.22) M/mm3 Hgb (11.2-15.7) gm/L Hct (34.1-44.9) % MCV (79.4-94.8) fl MCH (25.6-32.2) pg MCHC (32.2-35.5) g/dl RDW Std Deviation (36.4-46.3) fL Plt Count (182-369) K/mm3 MPV (9.4-12.3) fl Neut % (Auto) (34.0-71.1) % Lymph % (Auto) (19.3-51.7) % [place] % (Auto) (4.7-12.5) % Eos % (Auto) (0.7-5.8) Baso % (Auto) (0.1-1.2) % Neut # (Auto) (1.56-6.13) K/mm3 Lymph # (Auto) (1.18-3.74) K/mm3 [place] # (Auto) (0.24-0.36) K/mm3 Eos # (Auto) (0.04-0.36) K/mm3 Baso # (Auto) (0.01-0.08) K/mm3 Manual Slide Review PT 11.4 (9.5-12.1) SECONDS INR 1.05 APTT 25 (24-31) SECONDS Sodium 143 (136-145) mEq/L Potassium 3.6 (3.5-5.1) mEq/L Chloride 111 H (98-107) mEq/L Carbon Dioxide 25 (21-32) mEq/L Anion Gap 10.6 (5-15) BUN 6 L (7-18) mg/dL Creatinine 0.7 (0.55-1.02) mg/dL Est Cr Clr Drug Dosing 107.00 mL/min Estimated GFR (MDRD) > 60 (>60) mL/min BUN/Creatinine Ratio 8.6 L (14-18) Glucose 89 (74-106) mg/dL Calcium 7.9 L (8.5-10.1) mg/dL Magnesium 1.5 L (1.8-2.4) mg/dl Total Bilirubin 0.3 (0.2-1.0) mg/dL AST 26 (15-37) U/L ALT 21 (14-59) U/L Alkaline Phosphatase 85 (46-116) U/L Total Protein 4.4 L (6.4-8.2) g/dl Albumin 1.4 L (3.4-5.0) g/dl Globulin 3.0 gm/dL Albumin/Globulin Ratio 0.5 L (1-2) Urine Color (Yellow) Urine Appearance (Clear) Urine pH (5.0-8.0) Ur Specific [place] (1.005-1.030) Urine Protein (Negative) Urine Glucose (UA) (Negative) Urine Ketones (Negative) Urine Occult Blood (Negative) Urine Nitrite (Negative) Urine Bilirubin (Negative) Urine Urobilinogen (0.2-1.0) Ur Leukocyte Esterase (Negative) Ur Random Creatinine (30.0-125.0) mg/dL Ur Random Microalbumin (1.3-20.0) mg/L Microalb/Creat Ratio (0-30) mg/g Med Orders - Current: Current Medications Acetaminophen (Tylenol) 650 mg PO Q4H PRN PRN Reason: Pain (Mild 1-3)/fever Last Admin: 08/05/18 21:27 Dose: 650 mg Famotidine (Pepcid) 20 mg PO BID [facility] Last Admin: 08/06/18 20:35 Dose: 20 mg Lactated Ringer's (Ringers, Lactated) 1,000 mls @ 50 mls/hr IV ASDIRECTED [facility] Last Admin: 08/07/18 04:00 Dose: 50 mls/hr Magnesium Sulfate 4 gm/ Premix 50 mls @ 12.5 mls/hr IV ONETIME ONE Stop: 08/07/18 10:37 Last Admin: 08/07/18 06:48 Dose: 12.5 mls/hr Ondansetron HCl (Zofran Odt) 4 mg PO Q4H PRN PRN Reason: nausea, able to take PO Ondansetron HCl (Zofran) 4 mg IV Q4H PRN PRN Reason: Nausea/Vomiting Potassium Chloride (Potassium Chloride Solution) 20 meq PO 1200,2100 [facility] Last Admin: 08/06/18 20:35 Dose: 20 meq Sodium Chloride (Saline Flush) 10 ml FLUSH ASDIRECTED PRN PRN Reason: Keep Vein Open Last Admin: 08/04/18 11:39 Dose: 10 ml Discontinued Medications Sodium Chloride (Normal Saline) 1,000 mls @ 500 mls/hr IV ASDIRECTED [facility] Last Admin: 08/04/18 11:39 Dose: 500 mls/hr Potassium Chloride 10 meq/ (Premix) 100 mls @ 100 mls/hr IV ASDIRECTED ONE Stop: 08/04/18 13:10 Last Admin: 08/04/18 12:44 Dose: 100 mls/hr Magnesium Sulfate 2 gm/ Premix 50 mls @ 25 mls/hr IV ONETIME ONE Stop: 08/04/18 15:37 Last Admin: 08/04/18 13:47 Dose: 25 mls/hr Sodium Chloride (Normal Saline) 1,000 mls @ 125 mls/hr IV ASDIRECTED [facility] Last Admin: 08/04/18 20:55 Dose: 125 mls/hr Potassium Chloride 10 meq/ (Premix) 100 mls @ 100 mls/hr IV Q1H [facility] Stop: 08/04/18 18:59 Last Admin: 08/04/18 18:42 Dose: 100 mls/hr Potassium Chloride 10 meq/ (Premix) 100 mls @ 100 mls/hr IV Q1H [facility] Stop: 08/05/18 10:29 Last Admin: 08/05/18 10:17 Dose: 100 mls/hr Sodium Chloride (Normal Saline) Confirm Administered Dose 1,000 mls @ as directed .ROUTE .STK-MED ONE Stop: 08/05/18 06:45 Last Admin: 08/05/18 06:57 Dose: Not Given Lactated Ringer's (Ringers, Lactated) 500 mls @ 999 mls/hr IV .BOLUS ONE Stop: 08/05/18 21:37 Last Admin: 08/05/18 21:27 Dose: 999 mls/hr Lactated Ringer's (Ringers, Lactated) 1,000 mls @ 100 mls/hr IV ASDIRECTED [facility] Last Admin: 08/06/18 06:39 Dose: 100 mls/hr Potassium Chloride (Kcl 10 Meq In Water 100 Ml) 100 mls @ 100 mls/hr IV ONETIME ONE Stop: 08/05/18 23:29 Last Admin: 08/06/18 00:25 Dose: 100 mls/hr Sodium Chloride (Normal Saline) 100 mls @ 100 mls/hr IV ASDIRECTED [facility] Last Admin: 08/06/18 02:23 Dose: 100 mls/hr Potassium Chloride (Kcl 10 Meq In Water 100 Ml) 100 mls @ 100 mls/hr IV ONETIME ONE Stop: 08/06/18 03:14 Last Admin: 08/06/18 02:23 Dose: 100 mls/hr Magnesium Sulfate 4 gm/ Premix 50 mls @ 12.5 mls/hr IV ONETIME ONE Stop: 08/06/18 10:25 Last Admin: 08/06/18 06:39 Dose: 12.5 mls/hr Potassium Chloride 10 meq/ (Premix) 100 mls @ 100 mls/hr IV Q1H [facility] Stop: 08/06/18 08:29 Last Admin: 08/06/18 09:59 Dose: 75 mls/hr Sodium Chloride (Normal Saline) 500 mls @ 999 mls/hr IV .BOLUS ONE Stop: 08/06/18 07:18 Last Admin: 08/06/18 07:07 Dose: 300 mls/hr Potassium Chloride 10 meq/ (Premix) 100 mls @ 50 mls/hr IV Q2H [facility] Stop: 08/06/18 14:29 Last Admin: 08/06/18 12:46 Dose: 75 mls/hr Ondansetron HCl (Zofran) 4 mg IVPUSH ONETIME ONE Stop: 08/04/18 11:25 Last Admin: 08/04/18 11:41 Dose: 4 mg Potassium Chloride (Klor-Con M20) 20 meq PO BEDTIME [facility] Last Admin: 08/05/18 20:57 Dose: 20 meq Potassium Chloride (Klor-Con M20) 20 meq PO ONETIME ONE Stop: 08/06/18 12:01 - Exam Quality Assessment: Reports: DVT Prophylaxis General: Reports: Alert, Oriented, Cooperative, No Acute Distress HEENT: Reports: Pupils Equal, Pupils Reactive, Mucous Membr. Moist/[place] Neck: Reports: Supple, Trachea Midline, No JVD Lungs: Reports: Clear to Auscultation, Normal Respiratory Effort Cardiovascular: Reports: Regular Rate, Regular Rhythm GI/Abdominal Exam: Normal Bowel Sounds, Soft, Non-Tender, No Distention, No Abnormal Bruit (Female) Exam: Deferred Rectal (Female) Exam: Deferred Back Exam: Reports: Normal Inspection, Full Range of Motion Extremities: Normal Inspection, Normal Range of Motion, Non-Tender, No Pedal Edema, Normal Capillary Refill Skin: Reports: Warm, Dry, Intact Neurological: Reports: No New Focal Deficit Psy/Mental Status: Reports: Alert, Normal Affect, Normal Mood
[2018-08-07] MEDS: Famotidine 20 MG Tab PO SCH (09:14)
[2018-08-07] MEDS ORDERED: Sodium Chloride 0.9% 1,000 ML ONE (10:34)
[2018-08-07] MEDS ORDERED: Sodium Chloride 0.9% 1,000 ML IV ONE (10:40)
[2018-08-07] MEDS: Potassium Chloride 10% 20 MEQ/15 ML Soln 15 ML UD Cup PO SCH (11:54)
[2018-08-07 17:13] VITALS: BP 112/73
== END 2018-08-07 15:33 | disposition home or self-care (01) | DRG 248 ==
LOC: JD.ED 10:28 → OBSVTOIN 13:03 → JD.MS 13:03
PROVIDERS: ADMIT Family Medicine; ATTEND Family Medicine
DX: A04.72 Enterocolitis due to Clostridium difficile, not specified as recurrent (principal); E87.6 Hypokalemia; E83.42 Hypomagnesemia; D50.9 Iron deficiency anemia, unspecified; I95.9 Hypotension, unspecified; E46 Unspecified protein-calorie malnutrition; I25.2 Old myocardial infarction; J43.9 Emphysema, unspecified; K44.9 Diaphragmatic hernia without obstruction or gangrene; Z87.891 Personal history of nicotine dependence; Z79.82 Long term (current) use of aspirin; Z79.899 Other long term (current) drug therapy; Z68.27 Body mass index [BMI] 27.0-27.9, adult
CPT/HCPCS: 36415; 80048; 80053; 81003; 82043; 82306; 82607; 83540; 83735; 84100; 84466; 84484; 85007; 85025; 85027; 85610; 85730; 93005; 93010; 96361; 96374; 96375; 97110-GO; 97110-GP; 97161-GP; 97165-GO; 97530-GO; 97530-GP; 97535-GO; 99285; 99285-25; A9270-GY; J2405; J3475; J3480; J7030; J7040; J7120

== ENCOUNTER 2018-08-15 10:03 | Emergency (ER) | payer BC, OTHER ==
[2018-08-15 10:24] VITALS: BP 103/58
[2018-08-15] MEDS ORDERED: Acetaminophen 325 MG Tab PO ONE (10:56)
--- NOTE | 2018-08-15 12:52 | EDM.PDOC ---
ED HPI GENERAL MEDICAL PROBLEM - General Chief Complaint: Headache Stated Complaint: NAUSEA,HEADACHE AFTER STARTING NEW MED Time Seen by Provider: 08/15/18 10:35 Source of Information: Reports: Patient History Limitations: Reports: No Limitations - History of Present Illness INITIAL COMMENTS - FREE TEXT/NARRATIVE: The patient presents with a headache. This started a couple days ago. She was recently put on eliquis for a DVT in the left leg and superficial thrombophlebitis in the left leg. She has had troubles in the past with diverticulitis and then she developed c-dif. That is finally getting better and now she has the DVT. She is concerned with this headache that a bleed or a blockage may have formed. She has a little dizziness and generalized headache. She has no fever, chills, cough, chest pain, shortness of breath, abdominal pain, nausea or vomiting. She has no numbness or weakness. Onset: Gradual Duration: Day(s): Location: Reports: Head Quality: Reports: Ache Severity: Mild Improves with: Reports: None Worsens with: Reports: None Associated Symptoms: Reports: No Other Symptoms Headache Pain Score (Numeric/FACES): 4 - Related Data Allergies Allergy/AdvReac Type Severity Reaction Status Date / Time No Known Allergies Allergy Verified 08/15/18 10:21 Home Meds: Home Meds Omeprazole 20 mg PO DAILY 07/21/18 [History] Aspirin 81 mg PO DAILY 08/04/18 [History] Cholecalciferol (Vitamin D3) [Vitamin D3] 5,000 unit PO DAILY 08/04/18 [History] L.acidoph,Paracasei, B.lactis [Probiotic] 1 each PO DAILY 08/04/18 [History] Multivitamin [Multi-Day Vitamins] 1 each PO DAILY 08/04/18 [History] Ranitidine HCl [Ranitidine] 150 mg PO BID 08/04/18 [History] Cyanocobalamin/Folic Acid [Vitamin U97-Cyzjg Acid] 1 tab PO ASDIRECTED #1 tablet 08/07/18 [Rx] Ferrous Sulfate 325 mg PO PCBREAKFAST #15 tablet 08/07/18 [Rx] Magnesium Oxide [Magnesium] 400 mg PO DAILY #4 tablet 08/07/18 [Rx] Potassium Chloride [Potassium Chloride Solution] 20 meq PO BID 3 Days #1 cup [Rx] Apixaban [Eliquis] 10 mg PO BID 08/15/18 [History] Past Medical History HEENT History: Reports: Impaired Vision Other HEENT History: glasses Cardiovascular History: Reports: Blood Clots/VTE/DVT, [place], SOB on Exertion Respiratory History: Reports: COPD, Other (See Below) Other Respiratory History: emphysema Gastrointestinal History: Reports: Hiatal Hernia Other Gastrointestinal History: had 1 time when 13 years ago- never had another episode- ulcerative colitis--had gastric bypass surgery 22 years ago. Has lost 150 pounds and is maintained this weight. 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 Her baseline weight is 150 pounds. She was 89 when she had the bypass. Female Surgical History: Reports: Section, Tubal Ligation Endocrine Surgical History: Reports: None Musculoskeletal Surgical History: Reports: None Social & Family History - Family History Family Medical History: Noncontributory - Tobacco Use Smoking Status *Q: Never Smoker - Caffeine Use Caffeine Use: Reports: Soda, Tea - Recreational Drug Use Recreational Drug Use: No - Living Situation & Occupation Living situation: Reports: Occupation: Employed [employer] [facility] [employer] [facility] - Review of Systems Review Of Systems: See Below Constitutional: Reports: No Symptoms HEENT: Reports: No Symptoms Respiratory: Reports: No Symptoms Cardiovascular: Reports: No Symptoms Endocrine: Reports: No Symptoms GI/Abdominal: Reports: No Symptoms : Reports: No Symptoms Musculoskeletal: Reports: No Symptoms Neurological: Reports: Dizziness, Headache - Physical Exam Exam: See Below Exam Limited By: No Limitations General Appearance: Alert, No Apparent Distress Ears: Normal External Exam Nose: Normal Inspection Head Exam: Atraumatic, Normocephalic Neck: Normal Inspection Respiratory/Chest: No Respiratory Distress, Lungs Clear, Normal Breath Sounds Cardiovascular: Regular Rate, Rhythm, No Edema, No Murmur GI/Abdominal: Soft, Non-Tender, No Organomegaly, No Mass Neuro Exam (Abbreviated): Alert, Oriented, No Motor/Sensory Deficits Course - Vital Signs Last Recorded V/S: Last Vital Signs Temp 99.3 F 08/15/18 10:21 Pulse 86 08/15/18 10:21 Resp 14 08/15/18 10:21 BP 103/58 L 08/15/18 10:21 Pulse Ox 97 08/15/18 10:21 - Orders/Labs/Meds Orders: Active Orders 24 hr Category Date Time Status Cardiac Monitoring [RC] . DIRECTED Care 08/15/18 10:55 Active Head wo Cont [CT] Stat Exams 08/15/18 10:55 Taken Labs: Laboratory Tests 08/15/18 08/15/18 Range/Units 11:15 11:15 WBC 6.30 (3.98-10.04) K/mm3 RBC 3.95 L (3.98-5.22) M/mm3 Hgb 9.6 L (11.2-15.7) gm/L Hct 32.4 L (34.1-44.9) % MCV 82.0 (79.4-94.8) fl MCH 24.3 L (25.6-32.2) pg MCHC 29.6 L (32.2-35.5) g/dl RDW Std Deviation 59.2 H (36.4-46.3) fL Plt Count 317 D (182-369) K/mm3 MPV 9.2 L (9.4-12.3) fl Neut % (Auto) 60.9 (34.0-71.1) % Lymph % (Auto) 22.4 (19.3-51.7) % Hardeman % (Auto) 5.9 (4.7-12.5) % Eos % (Auto) 10.2 H (0.7-5.8) Baso % (Auto) 0.6 (0.1-1.2) % Neut # (Auto) 3.84 (1.56-6.13) K/mm3 Lymph # (Auto) 1.41 (1.18-3.74) K/mm3 Hardeman # (Auto) 0.37 H (0.24-0.36) K/mm3 Eos # (Auto) 0.64 H (0.04-0.36) K/mm3 Baso # (Auto) 0.04 (0.01-0.08) K/mm3 Manual Slide Review Abnormal smear Sodium 144 (136-145) mEq/L Potassium 3.7 (3.5-5.1) mEq/L Chloride 111 H (98-107) mEq/L Carbon Dioxide 25 (21-32) mEq/L Anion Gap 11.7 (5-15) BUN 6 L (7-18) mg/dL Creatinine 0.8 (0.55-1.02) mg/dL Est Cr Clr Drug Dosing 94.03 mL/min Estimated GFR (MDRD) > 60 (>60) mL/min BUN/Creatinine Ratio 7.5 L (14-18) Glucose 89 (74-106) mg/dL Calcium 8.4 L (8.5-10.1) mg/dL Total Bilirubin 0.3 (0.2-1.0) mg/dL AST 28 (15-37) U/L ALT 24 (14-59) U/L Alkaline Phosphatase 91 (46-116) U/L Total Protein 5.8 L (6.4-8.2) g/dl Albumin 2.1 L (3.4-5.0) g/dl Globulin 3.7 gm/dL Albumin/Globulin Ratio 0.6 L (1-2) Meds: Medications Discontinued Medications Generic Name Dose Route Start Last Admin Trade Name Freq PRN Reason Stop Dose Admin Acetaminophen 975 mg 08/15/18 10:56 08/15/18 11:03 Tylenol PO 08/15/18 10:57 975 mg NOW ONE Administration - Re-Assessments/Exams Free Text/Narrative Re-Assessment/Exam: 08/15/18 12:53 I ordered labs and a CT of he head. Her CT shows no acute intracranial abnormality. 08/15/18 12:53 Her Hgb was low at 9.6. Last week it was 10.2. Her CMP looks good. I will discharge her home. Departure - Departure Time of Disposition: 13:20 Disposition: Home, Self-Care 01 Condition: Good Clinical Impression: Headache Qualifiers: Headache type: unspecified Headache chronicity pattern: acute headache Intractability: not intractable Qualified Code(s): R51 - Headache Anemia Qualifiers: Anemia type: other cause Other causes of anemia: other cause, not classified Qualified Code(s): D64.89 - Other specified anemias - Discharge Information *PRESCRIPTION DRUG MONITORING PROGRAM REVIEWED*: No *COPY OF PRESCRIPTION DRUG MONITORING REPORT IN PATIENT EMILY: No Referrals: Marita Wong NP [Primary Care Provider] - 1 Week Forms: ED Department Discharge Additional Instructions: Keep taking your medication as prescribed. Try taking a multivitamin with iron. Follow up with your doctor. Please return if you are worse. - My Orders Last 24 Hours: My Active Orders 08/15/18 10:55 Cardiac Monitoring [RC] . DIRECTED Head wo Cont [CT] Stat - Assessment/Plan Last 24 Hours: My Active Orders 08/15/18 10:55 Cardiac Monitoring [RC] . DIRECTED Head wo Cont [CT] Stat
--- NOTE | 2018-08-17 09:07 | CT ---
Head CT Technique: Multiple axial sections through the brain were obtained. Intravenous contrast was not utilized. Comparison: No prior intracranial imaging is available. Findings: Ventricles along with basal cisterns and sulci over the convexities are within normal limits for the patient's age. No abnormal parenchymal densities are seen. No evidence of intracranial hemorrhage. No midline shift or mass effect is seen. Bone window settings were reviewed which shows no acute calvarial abnormality. Visualized sinuses are clear. Impression: 1. Nothing acute is appreciated on noncontrast head CT study. Diagnostic code #1 I agree with preliminary report from [facility], finalized on 08/15/18, 1:15 PM Central Time
== END 2018-08-15 13:31 | disposition home or self-care (01) ==
LOC: JD.ED 10:03
DX: R51 Headache (principal); D64.89 Other specified anemias; I25.2 Old myocardial infarction; Z98.84 Bariatric surgery status; Z98.51 Tubal ligation status; Z86.718 Personal history of other venous thrombosis and embolism; Z79.82 Long term (current) use of aspirin; Z79.899 Other long term (current) drug therapy
CPT/HCPCS: 36415; 70450; 80053; 85025; 99284; A9270; 99282

== ENCOUNTER 2018-09-30 09:32 | Emergency (ER) | payer BC ==
[2018-09-30 09:41] VITALS: BP 116/48; PULSE 72
--- NOTE | 2018-09-30 11:20 | EDM.PDOC ---
ED HPI GENERAL MEDICAL PROBLEM - General Chief Complaint: Lower Extremity Injury/Pain Stated Complaint: BLOOD CLOT IN RIGHT THIGH Time Seen by Provider: 09/30/18 10:41 Source of Information: Reports: Patient History Limitations: Reports: No Limitations - History of Present Illness INITIAL COMMENTS - FREE TEXT/NARRATIVE: The patient states that she was diagnosed with a left lower extremity DVT, as well as right anterior thigh superficial phlebitis, per a Doppler ultrasound in August of this year. She states that she was prescribed 2 weeks of Eliquis, which she took, but she did not subsequently follow up, and has therefore not been on Eliquis ever since that initial 2 week prescription ran out. The patient states that prior to being diagnosed with a DVT, she did not suffer any injury to her left lower extremity, and she denies having experienced a long period of stasis, such as a trip in an airplane. Because she did not follow -up, she has not undergone a hypercoagulable evaluation. The patient now presents to the ED stating that she developed some pain and redness to her anterior right thigh yesterday, 09/29/2018. She states that the pain and redness is identical to the pain and redness that she had to her right thigh in August. She denies having similar pain or redness elsewhere on her body. She is concerned that, because she was diagnosed with a DVT (in her left lower extremity) when she had the pain and redness to her right thigh previously, that she may have a DVT now. The patient denies having a recent fever. She denies having chest pain. She reports a few months of dyspnea on exertion, but no shortness of breath at rest. She reports having palpitations on and off for the past few years. The patient's PCP is Marita Wong NP. Her Wharf Hand is Dr. Sukhdev Dela Cruz. Right Thigh Pain Score (Numeric/FACES): 3 - Related Data Allergies Allergy/AdvReac Type Severity Reaction Status Date / Time No Known Allergies Allergy Verified 09/30/18 09:41 Home Meds: Home Meds Omeprazole 20 mg PO DAILY 07/21/18 [History] L.acidoph,Paracasei, B.lactis [Probiotic] 1 each PO DAILY 08/04/18 [History] Multivitamin [Multi-Day Vitamins] 1 each PO DAILY 08/04/18 [History] Past Medical History HEENT History: Reports: Impaired Vision Other HEENT History: wears glasses Cardiovascular History: Reports: Blood Clots/VTE/DVT (LLE, unprovoked, dx'd 08/06), [place] Respiratory History: Reports: COPD (possible) Gastrointestinal History: Reports: Hiatal Hernia 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: - Infectious Disease History Infectious Disease History: Reports: C-Difficile - Past Surgical History Cardiovascular Surgical History: Reports: Other (See Below) (Coronary angiogram x 1 -> clean) GI Surgical History: Reports: Bariatric Procedure ([place]-en-[place] gastric bypass 1995 ) Female Surgical History: Reports: Section (x 1), Tubal Ligation Social & Family History - Family History Family Medical History: Noncontributory - Tobacco Use Smoking Status *Q: Current Every Day Smoker Years of Tobacco use: 36 Packs/Tins Daily: 1.5 - Caffeine Use Caffeine Use: Reports: Soda, Tea - Alcohol Use Alcohol Use History: No - Recreational Drug Use Recreational Drug Use: No - Living Situation & Occupation Living situation: Reports: (), with Family (Son) Occupation: Unemployed Review of Systems - Review of Systems Review Of Systems: ROS reveals no pertinent complaints other than HPI. ED EXAM, GENERAL - Physical Exam Exam: See Below Exam Limited By: No Limitations General Appearance: Alert, WD/WN, No Apparent Distress Extremities: Other (Small area of erythema, measuring approximately 4 cm in diameter, of erythema to the anterior mid right thigh. On palpation, a subcutaneous cord can be palpated, and this is tender to palpation. There is mild calor to the area. Neurovascular status of both lower extremities is intact.) Course - Vital Signs Last Recorded V/S: Last Vital Signs Temp 36.1 C 09/30/18 09:37 Pulse 72 09/30/18 09:37 Resp 16 09/30/18 09:37 BP 116/48 L 09/30/18 09:37 Pulse Ox 98 09/30/18 09:37 - Re-Assessments/Exams Free Text/Narrative Re-Assessment/Exam: 09/30/18 11:17 Our medical records find no record of a Doppler of either lower extremity being performed at this facility. The patient states that the Doppler was performed across the street at [facility]. We are endeavoring to acquire that Doppler report. If in fact the patient was diagnosed with a left lower extremity DVT in August, then a Doppler ultrasound of her right lower extremity today is not indicated, because she should be anticoagulated whether she has a DVT in her right lower extremity today or not. If, however, the Doppler ultrasound in August found only superficial thrombophlebitis, then I will proceed with obtaining a Doppler of her right lower extremity today, although my suspicion of a RLE DVT is low. 09/30/18 11:31 Doppler ultrasound of the bilateral lower extremities performed 08/06/2018 is read by the Radiologist as: 1. Nonocclusive thrombus involving the left popliteal and peroneal vein 2. Superficial thrombophlebitis in the right thigh. This confirms that the patient was in fact diagnosed with an unprovoked DVT in July. I will therefore prescribe a 30-day course of Xarelto (15 mg BID x 21 days , then 20 mg/day thereafter) and provide her with a 30-day coupon. She will then need to follow-up with her PCP for a hypercoagulable workup. Departure - Departure Time of Disposition: 11:45 Disposition: Home, Self-Care 01 Condition: Good Clinical Impression: History of deep venous thrombosis (DVT) of distal vein of left lower extremity - Discharge Information *PRESCRIPTION DRUG MONITORING PROGRAM REVIEWED*: Not Applicable *COPY OF PRESCRIPTION DRUG MONITORING REPORT IN PATIENT EMILY: Not Applicable Instructions: Deep Vein Thrombosis Referrals: Marita Wong NP [Primary Care Provider] - Sukhdev Dela Cruz MD [Ordering Only Provider] - Forms: ED Department Discharge Additional Instructions: You were seen in the emergency room for painful redness to the front of your right thigh. Based on your history and physical examination, you are most likely suffering from superficial thrombophlebitis. We recommend you apply a warm compress to the red area to your right thigh several times a day. Because of your previous diagnosis of a left lower extremity DVT, made by Doppler ultrasound on 08/14/2018, you should be anticoagulated. You have therefore been prescribed a 30-day course of Xarelto, which you should begin this evening. Because your DVT was "unprovoked", meaning the cause is unknown, you need to undergo a hypercoagulable workup. Please see your PCP within 30 days for that workup. You need to be on an anticoagulant such as Xarelto for at least 3 months. If you are found to have a hypercoagulable condition, you will need to be on an anticoagulant for life. If any other problems, please do not hesitate to return to the ER.
== END 2018-09-30 12:01 | disposition home or self-care (01) ==
LOC: JD.ED 09:32
DX: I82.402 Acute embolism and thrombosis of unspecified deep veins of left lower extremity (principal); I25.2 Old myocardial infarction; F17.210 Nicotine dependence, cigarettes, uncomplicated; Z79.899 Other long term (current) drug therapy
CPT/HCPCS: 99283

== ENCOUNTER 2018-10-15 17:15 | Emergency (ER) | payer BC ==
[2018-10-15 17:59] VITALS: BP 96/40
--- NOTE | 2018-10-15 18:29 | EDM.PDOC ---
ED HPI GENERAL MEDICAL PROBLEM - General Chief Complaint: Abdominal Pain Stated Complaint: LEFT SIDE PAIN Time Seen by Provider: 10/15/18 18:09 Source of Information: Reports: Patient History Limitations: Reports: No Limitations - History of Present Illness INITIAL COMMENTS - FREE TEXT/NARRATIVE: 48-year-old female presents for evaluation and treatment of pain to the left lower chest and left upper abdomen. States that pain has been present the last few days. She is moving. she is not sure if she may be injured a rib. She is appreciated pain seems to be worse with movement. She states that she feels "a little bit " short of breath. She denies any fevers, chills, nausea, vomiting, lightheadedness, dizziness, syncope, cough or any diarrhea. Patient has been on eliquis for a DVT recently. DVT to the right leg. Denies any right leg pain recently. She has been off the eliquis the last 4 days as she misplaced the pills while she was moving. Patient recently had C.diff. Treated and no longer has symptoms. PCP is Marita Madrigal. Has appointment with Marita next week. Plans to see hematology regarding the DVT. Abdomen Pain Score (Numeric/FACES): 8 - Related Data Allergies Allergy/AdvReac Type Severity Reaction Status Date / Time No Known Allergies Allergy Verified 09/30/18 09:41 Home Meds: Home Meds Omeprazole 20 mg PO DAILY 07/21/18 [History] L.acidoph,Paracasei, B.lactis [Probiotic] 1 each PO DAILY 08/04/18 [History] Multivitamin [Multi-Day Vitamins] 1 each PO DAILY 08/04/18 [History] Apixaban [Eliquis] 5 mg PO BID 10/15/18 [History] Nitrofurantoin Monohyd/M-Cryst [Macrobid 100 mg Capsule] 100 mg PO BID #10 capsule 10/15/18 [Rx] Ondansetron [Zofran ODT] 4 mg PO Q6H PRN 10/15/18 [History] Past Medical History HEENT History: Reports: Impaired Vision Other HEENT History: wears glasses Cardiovascular History: Reports: Blood Clots/VTE/DVT (LLE, unprovoked, dx'd 08/06), [place] Respiratory History: Reports: COPD (possible) Other Respiratory History: emphysema Gastrointestinal History: Reports: Hiatal Hernia Other Gastrointestinal History: had 1 time when 13 years ago- never had another episode- ulcerative colitis--had gastric bypass surgery 22 years ago. Has lost 150 pounds and is maintained this weight. Genitourinary History: Reports: None [facility] History: Reports: Musculoskeletal History: Reports: None Neurological History: Reports: None Psychiatric History: Reports: None Endocrine/Metabolic History: Reports: None Hematologic History: Reports: Iron Deficiency Immunologic History: Reports: None Oncologic (Cancer) History: Reports: None Dermatologic History: Reports: None - Infectious Disease History Infectious Disease History: Reports: C-Difficile - Past Surgical History Cardiovascular Surgical History: Reports: Other (See Below) (Coronary angiogram x 1 -> clean) GI Surgical History: Reports: Bariatric Procedure ([place] gastric bypass 1995 ) Female Surgical History: Reports: Section (x 1), Tubal Ligation Social & Family History - Family History Family Medical History: Noncontributory - Caffeine Use Caffeine Use: Reports: Soda, Tea - Living Situation & Occupation Living situation: Reports: (), with Family (Son) Occupation: Unemployed ED ROS GENERAL - Review of Systems Review Of Systems: See Below Constitutional: Denies: Fever, Chills Respiratory: Reports: Shortness of Breath ("little bit" ). Denies: Cough Cardiovascular: Reports: Chest Pain (left anterior lateral chest). Denies: Lightheadedness, Syncope GI/Abdominal: Denies: Diarrhea, Nausea, Vomiting Neurological: Denies: Syncope ED EXAM, GENERAL - Physical Exam Exam: See Below Exam Limited By: No Limitations General Appearance: Alert, WD/WN, No Apparent Distress Eye Exam: Bilateral Eye: Normal Inspection Nose: Normal Inspection Throat/Mouth: Normal Inspection, Normal Lips, Normal Voice, No Airway Compromise Respiratory/Chest: No Respiratory Distress, Lungs Clear, Normal Breath Sounds, Other (tenderness to palpation to the left lower anterolateral chest ribs 8-10) Cardiovascular: Normal Peripheral Pulses, Regular Rate, Rhythm, No Murmur GI/Abdominal: Normal Bowel Sounds, Soft, Non-Tender Neurological: Alert, Oriented, Normal Cognition Psychiatric: Normal Affect, Normal Mood Skin Exam: Warm, Dry, Normal Color EKG INTERPRETATION EKG Date: 10/15/18 Time: 18:41 Rhythm: NSR Rate (Beats/Min): 81 [place]: Normal P-Wave: Present QRS: Normal ST-T: Normal QT: Normal EKG Interpretation Comments: Normal sinus rhythm at [address] segment changes. QTC within normal limits at 411. Dr. Ariza. Course - Vital Signs Last Recorded V/S: Last Vital Signs Temp 97.8 F 10/15/18 17:57 Pulse 85 10/15/18 17:57 Resp 20 10/15/18 17:57 BP 96/40 L 10/15/18 17:57 Pulse Ox 96 10/15/18 17:57 - Orders/Labs/Meds Labs: Laboratory Tests 10/15/18 10/15/18 10/15/18 Range/Units 18:55 18:55 18:55 WBC 9.19 (3.98-10.04) K/mm3 RBC 5.64 H (3.98-5.22) M/mm3 Hgb 16.2 H D (11.2-15.7) gm/L Hct 49.8 H (34.1-44.9) % MCV 88.3 D (79.4-94.8) fl MCH 28.7 (25.6-32.2) pg MCHC 32.5 (32.2-35.5) g/dl RDW Std Deviation 52.7 H (36.4-46.3) fL Plt Count 291 (182-369) K/mm3 MPV 9.8 (9.4-12.3) fl Neut % (Auto) 62.6 (34.0-71.1) % Lymph % (Auto) 30.9 (19.3-51.7) % [place] % (Auto) 5.4 (4.7-12.5) % Eos % (Auto) 0.7 (0.7-5.8) Baso % (Auto) 0.3 (0.1-1.2) % Neut # (Auto) 5.75 (1.56-6.13) K/mm3 Lymph # (Auto) 2.84 (1.18-3.74) K/mm3 [place] # (Auto) 0.50 H (0.24-0.36) K/mm3 Eos # (Auto) 0.06 (0.04-0.36) K/mm3 Baso # (Auto) 0.03 (0.01-0.08) K/mm3 D-Dimer, Quantitative 0.58 H (0.19-0.50) mg/L Sodium 142 (136-145) mEq/L Potassium 5.0 (3.5-5.1) mEq/L Chloride 104 (98-107) mEq/L Carbon Dioxide 30 (21-32) mEq/L Anion Gap 13.0 (5-15) BUN 11 (7-18) mg/dL Creatinine 0.9 (0.55-1.02) mg/dL Est Cr Clr Drug Dosing 83.58 mL/min Estimated GFR (MDRD) > 60 (>60) mL/min BUN/Creatinine Ratio 12.2 L (14-18) Glucose 93 (74-106) mg/dL Calcium 10.1 D (8.5-10.1) mg/dL Magnesium 2.4 (1.8-2.4) mg/dl Total Bilirubin 0.6 (0.2-1.0) mg/dL AST 17 (15-37) U/L ALT 21 (14-59) U/L Alkaline Phosphatase 150 H (46-116) U/L Troponin I < 0.017 (0.00-0.056) ng/mL Total Protein 8.2 (6.4-8.2) g/dl Albumin 4.2 (3.4-5.0) g/dl Globulin 4.0 gm/dL Albumin/Globulin Ratio 1.1 (1-2) Urine Color (Yellow) Urine Appearance (Clear) Urine pH (5.0-8.0) Ur Specific [place] (1.005-1.030) Urine Protein (Negative) Urine Glucose (UA) (Negative) Urine Ketones (Negative) Urine Occult Blood (Negative) Urine Nitrite (Negative) Urine Bilirubin (Negative) Urine Urobilinogen (0.2-1.0) Ur Leukocyte Esterase (Negative) Urine RBC (0-5) /hpf Urine WBC (0-5) /hpf Ur Squamous Epith Cells (0-5) /hpf Urine Bacteria (FEW) /hpf Hyaline Casts (0-5) /lpf Urine Mucus (FEW) /hpf 10/15/18 Range/Units 19:16 WBC (3.98-10.04) K/mm3 RBC (3.98-5.22) M/mm3 Hgb (11.2-15.7) gm/L Hct (34.1-44.9) % MCV (79.4-94.8) fl MCH (25.6-32.2) pg MCHC (32.2-35.5) g/dl RDW Std Deviation (36.4-46.3) fL Plt Count (182-369) K/mm3 MPV (9.4-12.3) fl Neut % (Auto) (34.0-71.1) % Lymph % (Auto) (19.3-51.7) % [place] % (Auto) (4.7-12.5) % Eos % (Auto) (0.7-5.8) Baso % (Auto) (0.1-1.2) % Neut # (Auto) (1.56-6.13) K/mm3 Lymph # (Auto) (1.18-3.74) K/mm3 [place] # (Auto) (0.24-0.36) K/mm3 Eos # (Auto) (0.04-0.36) K/mm3 Baso # (Auto) (0.01-0.08) K/mm3 D-Dimer, Quantitative (0.19-0.50) mg/L Sodium (136-145) mEq/L Potassium (3.5-5.1) mEq/L Chloride (98-107) mEq/L Carbon Dioxide (21-32) mEq/L Anion Gap (5-15) BUN (7-18) mg/dL Creatinine (0.55-1.02) mg/dL Est Cr Clr Drug Dosing mL/min Estimated GFR (MDRD) (>60) mL/min BUN/Creatinine Ratio (14-18) Glucose (74-106) mg/dL Calcium (8.5-10.1) mg/dL Magnesium (1.8-2.4) mg/dl Total Bilirubin (0.2-1.0) mg/dL AST (15-37) U/L ALT (14-59) U/L Alkaline Phosphatase (46-116) U/L Troponin I (0.00-0.056) ng/mL Total Protein (6.4-8.2) g/dl Albumin (3.4-5.0) g/dl Globulin gm/dL Albumin/Globulin Ratio (1-2) Urine Color Light yellow (Yellow) Urine Appearance Slt cloudy H (Clear) Urine pH 6.0 (5.0-8.0) Ur Specific [place] 1.020 (1.005-1.030) Urine Protein 1+ H (Negative) Urine Glucose (UA) Negative (Negative) Urine Ketones Negative (Negative) Urine Occult Blood 2+ H (Negative) Urine Nitrite Positive H (Negative) Urine Bilirubin Negative (Negative) Urine Urobilinogen 0.2 (0.2-1.0) Ur Leukocyte Esterase 2+ H (Negative) Urine RBC 5-10 H (0-5) /hpf Urine WBC 50-75 H (0-5) /hpf Ur Squamous Epith Cells 10-20 H (0-5) /hpf Urine Bacteria Many H (FEW) /hpf Hyaline Casts 5-10 H (0-5) /lpf Urine Mucus Not seen (FEW) /hpf Meds: Medications Discontinued Medications Generic Name Dose Route Start Last Admin Trade Name Freq PRN Reason Stop Dose Admin Sodium Chloride 1,000 mls @ 999 mls/hr 10/15/18 18:33 10/15/18 19:32 Normal Saline IV 10/15/18 19:33 999 mls/hr ONETIME ONE Administration Sodium Chloride 10 ml 10/15/18 18:33 10/15/18 19:32 Saline Flush FLUSH 10 ml ASDIRECTED PRN Administration Keep Vein Open - Radiology Interpretation Free Text/Narrative:: Chest: 2 views of the chest were obtained. Comparison: Prior chest x-ray of 05/11/17 is available. Heart size is normal. Tortuous thoracic aorta is seen. Scoliosis is noted within the spine. Lungs show no definite acute parenchymal change. Emphysematous change appears to be present. Impression: 1. Emphysematous change. Nothing acute is appreciated. 2. Given findings on prior chest CT, recommend screening low dose chest CT study as a follow-up exam to prior chest CT. - Re-Assessments/Exams Free Text/Narrative Re-Assessment/Exam: 10/15/18 20:05 Reviewed the labs, EKG and imaging with the patient. We discussed obtaining a CT pulmonary angiogram. Her d-dimer is elevated is only slightly elevated at 0.58. I would expect a larger PE to have a much higher d-dimer. If she does have a small PE the treatment would be to be on the eliquis anyways. She decided to forego the CT angiogram at this time and I feel that this is appropriate. I will treat her for UTI. I feel that most the pain she is expressing his chest wall. I will have her follow-up with her primary care provider. Discharge instructions as documented. Departure - Departure Time of Disposition: 20:06 Disposition: Home, Self-Care 01 Condition: Fair Clinical Impression: Chest wall pain UTI (urinary tract infection) Qualifiers: Urinary tract infection type: acute cystitis Hematuria presence: without hematuria Qualified Code(s): N30.00 - Acute cystitis without hematuria - Discharge Information *PRESCRIPTION DRUG MONITORING PROGRAM REVIEWED*: No *COPY OF PRESCRIPTION DRUG MONITORING REPORT IN PATIENT EMILY: No Prescriptions: Nitrofurantoin Monohyd/M-Cryst [Macrobid 100 mg Capsule] 100 mg PO BID #10 capsule Instructions: Chest Wall Pain, [id number], Urinary Tract Infection, Adult, [id number] Referrals: Marita Wong [employer] SAL[employer] ASSISTANT [Primary Care Provider] - Forms: ED Department Discharge Additional Instructions: Make sure you are taking eliquis. Take this to completion. Take the Macrobid as prescribed. 1 tab twice a day for 5 days. Take this with food. Ensure you taking a probiotic. Drink plenty of fluids. Follow-up with your primary care provider next week for recheck of your symptoms. may take [id number] Tylenol as needed for discomfort to the left lateral chest. Please return to the ER if your symptoms change or worsen.
[2018-10-15] MEDS ORDERED: Sodium Chloride 0.9% 10 ML Syringe FLUSH PRN (18:33)
[2018-10-15] MEDS ORDERED: Sodium Chloride 0.9% 1,000 ML IV ONE (18:33)
--- NOTE | 2018-10-15 19:47 | CR ---
Chest: 2 views of the chest were obtained. Comparison: Prior chest x-ray of 05/11/17 is available. Heart size is normal. Tortuous thoracic aorta is seen. Scoliosis is noted within the spine. Lungs show no definite acute parenchymal change. Emphysematous change appears to be present. Impression: 1. Emphysematous change. Nothing acute is appreciated. 2. Given findings on prior chest CT, recommend screening low dose chest CT study as a follow-up exam to prior chest CT. Diagnostic code #9
== END 2018-10-15 20:25 | disposition home or self-care (01) ==
LOC: JD.ED 17:15
DX: R07.89 Other chest pain (principal); N30.00 Acute cystitis without hematuria; Z86.718 Personal history of other venous thrombosis and embolism; Z79.899 Other long term (current) drug therapy
CPT/HCPCS: 36415; 71046; 80053; 81001; 83735; 84484; 85025; 85379; 87086; 87088; 87186; 93005; 96360; 99284; J7040

== ENCOUNTER 2018-11-15 22:47 | Emergency (ER) | payer BC, MEDICAID | END 2018-11-15 23:15 | LOC: JD.ED 22:47 | DX: Z53.21 Procedure and treatment not carried out due to patient leaving prior to being seen by health care provider (principal) ==

== ENCOUNTER 2019-07-21 19:13 | Inpatient (IN) | payer BC ==
[2019-07-21] MEDS ORDERED: Lactated Ringers 1,000 ML IV ONE (19:52)
--- NOTE | 2019-07-21 19:56 | EDM.PDOC ---
ED HPI GENERAL MEDICAL PROBLEM - General Chief Complaint: Chest Pain Stated Complaint: [facility] Time Seen by Provider: 07/21/19 19:34 Source of Information: Reports: Patient History Limitations: Reports: No Limitations - History of Present Illness INITIAL COMMENTS - FREE TEXT/NARRATIVE: Mrs. Sumner is a very pleasant 49-year-old woman with a past medical history significant for an unprovoked left lower extremity DVT on 08/06/2018, treated only briefly with an anticoagulant, and untreated COPD, who now presents to the ED by EMS stating that she developed some left upper quadrant abdominal discomfort yesterday, which then expanded to left-sided chest pain that radiates to her left shoulder, around 16:00 to 16:30 this afternoon. She also complains of soreness to her upper left arm. The left-sided chest pain is pleuritic in nature, and also made worse if she moves. No associated nausea, dyspnea, diaphoresis, or sense of impending doom. No prior similar symptoms. The patient states that she took some Gas-X around 17:00 today, otherwise, she has not taken any [id number] or home remedies to try to treat her symptoms. Here in the ED, the patient's initial BP is found depressed at 99/45, but has since decreased to 91/60. She is not tachycardic. She is afebrile, saturating 94% on room air. Other than the above symptoms, the patient denies recent fever, chills, sore throat, ear pain, nasal or sinus congestion, cough, dyspnea, chest pain, palpitations, nausea, vomiting, constipation, diarrhea, abdominal pain, urinary symptoms, recent weight gain or weight loss, recent bloody bowel movements or black bowel movements, recent joint aches, headaches, or rashes. The patient's PCP is Marita Wong NP. Her Maintenance Planner is Dr. Sukhdev Dela Cruz. Left Chest Pain Score (Numeric/FACES): 6 - Related Data Allergies Allergy/AdvReac Type Severity Reaction Status Date / Time Dairy Products Allergy Headache Verified 04/30/19 13:17 Home Meds: Home Meds L.acidoph,Paracasei, B.lactis [Probiotic] 1 each PO DAILY 08/04/18 [History] Multivitamin [Multi-Day Vitamins] 1 each PO DAILY 08/04/18 [History] Albuterol Sulfate [Albuterol Sulfate Hfa] 2 puff INH Q4H 04/30/19 [History] Cholecalciferol (Vitamin D3) [Vitamin D3] 2,000 unit PO DAILY 04/30/19 [History] Fluticasone Propionate [Flovent HFA] 1 puff INH BID 04/30/19 [History] Umeclidinium Brm/Vilanterol Tr [Anoro Ellipta 62.5-25 MCG] 1 puff INH DAILY [History] Past Medical History HEENT History: Reports: Impaired Vision (wears glasses) Cardiovascular History: Reports: Blood Clots/VTE/DVT (unprovoked LLE 08/06/2018) , [place] Respiratory History: Reports: COPD (untreated) Gastrointestinal History: Reports: Hiatal Hernia - Infectious Disease History Infectious Disease History: Reports: C-Difficile - Past Surgical History Cardiovascular Surgical History: Reports: Other (See Below) (Coronary angiogram x 1 -> clean) GI Surgical History: Reports: Bariatric Procedure (Open [place]-en-Y gastric bypass 1995, in [place]) Female Surgical History: Reports: Section (x 1), Tubal Ligation Social & Family History - Family History Family Medical History: Noncontributory - Tobacco Use Smoking Status *Q: Current Every Day Smoker Years of Tobacco use: 37 Packs/Tins Daily: 1 Packs/Tins Daily Comment: Down from 1.5 ppd - Caffeine Use Caffeine Use: Reports: Soda, Tea - Alcohol Use Alcohol Use History: Yes Alcohol Use Frequency: Socially - Recreational Drug Use Recreational Drug Use: No - Living Situation & Occupation Living situation: Reports: (), Alone Occupation: Unemployed ED ROS GENERAL - Review of Systems Review Of Systems: Comprehensive ROS is negative, except as noted in HPI. ED EXAM, GENERAL - Physical Exam Exam: See Below Exam Limited By: No Limitations General Appearance: Alert, WD/WN, Mild Distress (appears uncomfortable) Eye Exam: Bilateral Eye: EOMI, Normal Inspection Ears: Normal External Exam, Hearing Grossly Normal Nose: Normal Inspection Throat/Mouth: Normal Inspection, Normal Lips, Normal Voice, No Airway Compromise Head: Atraumatic, Normocephalic Neck: Normal Inspection, Full Range of Motion Respiratory/Chest: No Respiratory Distress, Lungs Clear, Normal Breath Sounds, No Accessory Muscle Use, Other (Mild tenderness to palpation of the left pectoralis muscle, but the patient states that it is not the same type of pain that brought her to the ED) Cardiovascular: Normal Peripheral Pulses, Regular Rate, Rhythm, No Edema, No Gallop, No JVD, No Murmur, No Rub Peripheral Pulses: 2+: Radial (L), Radial (R) GI/Abdominal: Normal Bowel Sounds, Soft, No Organomegaly, No Distention, No Abnormal Bruit, No Mass, Tender (Considerable, from the left upper quadrant through to the left lower quadrant. Nontender on the right abdomen.). No: Rebound (Female) Exam: Deferred Rectal (Female) Exam: Deferred Back Exam: Normal Inspection, Full Range of Motion. No: CVA Tenderness (L), CVA Tenderness (R) Extremities: Normal Inspection, Normal Range of Motion, No Pedal Edema, Normal Capillary Refill Neurological: Alert, Oriented, Normal Cognition, No Motor/Sensory Deficits Psychiatric: Normal Affect Skin Exam: Warm, Dry, Intact, Normal Color, No Rash EKG INTERPRETATION EKG Date: 07/21/19 Time: 19:26 Rhythm: NSR Rate (Beats/Min): 67 Dustin: Normal P-Wave: Present QRS: Other (Early transition) ST-T: Normal QT: Normal Comparison: No Change (10/15/2018) Course - Vital Signs Last Recorded V/S: Last Vital Signs Temp 36.5 C 07/21/19 19:18 Pulse 67 07/21/19 19:18 Resp 18 07/21/19 19:18 BP 99/45 L 07/21/19 19:18 Pulse Ox 94 L 07/21/19 19:18 Orthostatic Blood Pressure [ 99/66 Sitting] Orthostatic Blood Pressure [ 92/49 Supine] - Orders/Labs/Meds Orders: Active Orders 24 hr Category Date Time Status EKG 12 Lead [EKG Documentation Completion] [RC] STAT Care 07/21/19 19:23 Active Orthostatic Vital Signs [RC] STAT Care 07/21/19 19:51 Active Abdomen Pelvis w Cont [CT] Stat Exams 07/21/19 19:50 Taken Ang Chest [CT] Stat Exams 07/21/19 19:50 Taken Lactated Ringers [Ringers, Lactated] 1,000 ml Med 07/21/19 22:00 Active IV ASDIRECTED Levofloxacin/Dextrose 5%-Water [Levaquin in D5W 750 MG/ Med 07/21/19 23:11 Ordered 150 ML] 750 mg Premix Bag 1 bag IV ONETIME Magnesium Sulfate/Water [Magnesium Sulfate in Water Med 07/21/19 21:57 Active Premix] 2 gm Premix Bag 1 bag IV ONETIME Pantoprazole [ProTONIX IV] 80 mg Med 07/21/19 23:15 Ordered Sodium Chloride 0.9% [Normal Saline] 100 ml IV Q10H metroNIDAZOLE/Normal Saline [Flagyl 500 MG in NS 100 ML Med 07/21/19 23:11 Ordered ] 500 mg Premix Bag 1 bag IV ONETIME Medication Orders Lactated Ringer's (Ringers, Lactated) 1,000 mls @ 250 mls/hr IV ASDIRECTED [facility] Last Admin: 07/21/19 22:16 Dose: 250 mls/hr Magnesium Sulfate 2 gm/ Premix 50 mls @ 25 mls/hr IV ONETIME ONE Stop: 07/21/19 23:56 Last Admin: 07/21/19 22:16 Dose: 25 mls/hr Levofloxacin/Dextrose 750 mg/ (Premix) 150 mls @ 100 mls/hr IV ONETIME STA Stop: 07/22/19 00:40 Metronidazole 500 mg/ Premix 100 mls @ 100 mls/hr IV ONETIME STA Stop: 07/22/19 00:10 Pantoprazole Sodium 80 mg/ (Sodium Chloride) 100 mls @ 10 mls/hr IV Q10H [facility] Labs: Laboratory Tests 07/21/19 07/21/19 07/21/19 Range/Units 20:10 20:10 20:10 WBC 16.71 H (3.98-10.04) K/mm3 RBC 4.98 (3.98-5.22) M/mm3 Hgb 15.3 (11.2-15.7) gm/dl Hct 45.4 H (34.1-44.9) % MCV 91.2 (79.4-94.8) fl MCH 30.7 (25.6-32.2) pg MCHC 33.7 (32.2-35.5) g/dl RDW Std Deviation 43.4 (36.4-46.3) fL Plt Count 238 (182-369) K/mm3 MPV 10.3 (9.4-12.3) fl Neutrophils % (Manual) 86 H (40-60) % Band Neutrophils % 0 (0-10) % Lymphocytes % (Manual) 11 L (20-40) % Atypical Lymphs % 0 % Monocytes % (Manual) 2 (2-10) % Eosinophils % (Manual) 1 (0.7-5.8) % Basophils % (Manual) 0 L (0.1-1.2) Platelet Estimate Adequate RBC Morph Comment Normal PT 10.9 (9.7-12.0) SECONDS INR 1.00 APTT 27 (22-31) SECONDS Sodium 141 (136-145) mEq/L Potassium 2.9 L D (3.5-5.1) mEq/L Chloride 104 (98-107) mEq/L Carbon Dioxide 25 (21-32) mEq/L Anion Gap 14.9 (5-15) BUN 6 L (7-18) mg/dL Creatinine 0.9 (0.55-1.02) mg/dL Est Cr Clr Drug Dosing 77.28 mL/min Estimated GFR (MDRD) > 60 (>60) mL/min BUN/Creatinine Ratio 6.7 L (14-18) Glucose 119 H (74-106) mg/dL Calcium 9.6 (8.5-10.1) mg/dL Magnesium 1.5 L (1.8-2.4) mg/dl Total Bilirubin 0.7 (0.2-1.0) mg/dL AST 11 L (15-37) U/L ALT 16 (14-59) U/L Alkaline Phosphatase 89 (46-116) U/L Troponin I < 0.017 (0.00-0.056) ng/mL Total Protein 7.1 (6.4-8.2) g/dl Albumin 3.5 (3.4-5.0) g/dl Globulin 3.6 gm/dL Albumin/Globulin Ratio 1.0 (1-2) Lipase 115 (73-393) U/L Meds: Medications Generic Name Dose Route Start Last Admin Trade Name Freq PRN Reason Stop Dose Admin Lactated Ringer's 1,000 mls @ 250 mls/hr 07/21/19 22:00 07/21/19 22:16 Ringers, Lactated IV 250 mls/hr ASDIRECTED BHAVANI Administration Magnesium Sulfate 2 gm/ Premix 50 mls @ 25 mls/hr 07/21/19 21:57 07/21/19 22: 16 IV 07/21/19 23:56 25 mls/hr ONETIME ONE Administration Levofloxacin/Dextrose 750 mg/ 150 mls @ 100 mls/hr 07/21/19 23:11 Premix IV 07/22/19 00:40 ONETIME STA Metronidazole 500 mg/ Premix 100 mls @ 100 mls/hr 07/21/19 23:11 IV 07/22/19 00:10 ONETIME STA Pantoprazole Sodium 80 mg/ 100 mls @ 10 mls/hr 07/21/19 23:15 Sodium Chloride IV Q10H BHAVANI 8 MG/HR Discontinued Medications Generic Name Dose Route Start Last Admin Trade Name Freq PRN Reason Stop Dose Admin Lactated Ringer's 1,000 mls @ 999 mls/hr 07/21/19 19:52 07/21/19 20:03 Ringers, Lactated IV 07/21/19 20:52 999 mls/hr .BOLUS ONE Administration Pantoprazole Sodium 80 mg 07/21/19 23:12 Protonix Iv IVPUSH 07/21/19 23:13 BOLUS ONE - Re-Assessments/Exams Free Text/Narrative Re-Assessment/Exam: 07/21/19 19:52 As above, the patient is complaining of pleuritic left-sided chest pain and left upper quadrant abdominal discomfort, but on examination, she has considerable tenderness to the left side of her abdomen, and some tenderness to the left side of her chest, that is not reproducible. She is hypotensive, most recently with a BP of 91/60. Her ECG, obtained at triage, does not show ischemic changes. I have therefore decided to forego a D-dimer and go directly to a CT angiogram of her chest, along with a CT of her abdomen and pelvis with oral and IV contrast, to evaluate for pathology. I have also ordered other blood work and orthostatics. In the meantime, the patient will be given 1 L of LR. 07/21/19 20:14 The patient did not tolerate standing, in order to check orthostatics, however, her BP stan between supine and sitting, and her heart rate increased only a small amount. 07/21/19 21:58 The patient's CBC is remarkable for a WBC count elevated at 16.71, but with 0% bandemia. Her Hct is slightly elevated at 45.4, but with a Hgb normal at 15.3, and the remainder of her CBC is unremarkable. Her CMP is remarkable for a potassium depressed at 2.9, and a blood glucose slightly elevated at 119, with the remainder of her CMP being unremarkable. Her magnesium level is depressed at 1.5. Her lipase is within normal limits at 115. Her troponin is undetectably low. Her coags are within normal limits. Based on the above, I have ordered a 2 g Mg-rider. 07/21/19 22:25 CT of the abdomen and pelvis with oral and IV contrast is read by [facility] as: 1. Free air, compatible with a bowel perforation, in the absence of recent surgery. The site of perforation is not definitely seen, but is suspected to be within the gastric pouch. See above for a full description of findings. 2. See above for remaining findings. 07/21/19 22:58 CT angiogram of the chest is read by [facility] as: 1. No evidence of pulmonary embolism or other significant acute abnormality in the chest. 2. Mild emphysematous changes. 3. Incidental 1.9 cm thyroid nodule. Recommend nonemergent thyroid ultrasound for further evaluation, given the size of this nodule, unless otherwise clinically indicated. 4. See above for remaining findings. 07/21/19 23:04 The patient tells me that her original gastric bypass was performed in [place]. Obviously, I cannot transfer the patient to her original surgical site. Case discussed with Dr. Dial at 22:59. She will review the CT findings from her computer at home, and call me back. 07/21/19 23:13 Case further discussed with Dr. Dial at 23:09. She believes the leak has sealed itself off, and therefore the patient can be taken care of here. She requested that we start the patient on IV Flagyl and IV Levaquin, as well as pantoprazole IV push plus drip. She is to receive LR at 150 mL/h. She is to remain n.p.o. I will write bridge orders for pain medication. The patient will be admitted to Dr. Dial. 07/21/19 23:17 The above plan was discussed with the patient. She is agreeable. Departure - Departure Time of Disposition: 23:17 Disposition: Admitted As Inpatient 64 Condition: Fair Clinical Impression: Gastric perforation, Hypokalemia, Hypomagnesemia, Hypotension - Discharge Information *PRESCRIPTION DRUG MONITORING PROGRAM REVIEWED*: Not Applicable *COPY OF PRESCRIPTION DRUG MONITORING REPORT IN PATIENT EMILY: Not Applicable Referrals: Marita Wong NP [Primary Care Provider] - Sukhdev Dela Cruz MD [Ordering Only Provider] - Forms: ED Department Discharge Sepsis Event Note - Evaluation Sepsis Screening Result: No Definite Risk - Focused Exam Vital Signs: Vital Signs Temp Pulse Resp BP Pulse Ox 07/21/19 19:18 36.5 C 67 18 99/45 L 94 L Date Exam was Performed: 07/21/19 Time Exam was Performed: 23:28 - My Orders Last 24 Hours: My Active Orders 07/21/19 19:23 EKG 12 Lead [EKG Documentation Completion] [RC] STAT 07/21/19 19:50 Abdomen Pelvis w Cont [CT] Stat Ang Chest [CT] Stat 07/21/19 19:51 Orthostatic Vital Signs [RC] STAT 07/21/19 21:57 Magnesium Sulfate/Water [Magnesium Sulfate in Water Premix] 2 gm Premix Bag 1 bag IV ONETIME 07/21/19 22:00 Lactated Ringers [Ringers, Lactated] 1,000 ml IV ASDIRECTED 07/21/19 23:11 Levofloxacin/Dextrose 5%-Water [Levaquin in D5W 750 MG/150 ML] 750 mg Premix Bag 1 bag IV ONETIME metroNIDAZOLE/Normal Saline [Flagyl 500 MG in NS 100 ML] 500 mg Premix Bag 1 bag IV ONETIME 07/21/19 23:15 Pantoprazole [ProTONIX IV] 80 mg Sodium Chloride 0.9% [Normal Saline] 100 ml IV Q10H - Assessment/Plan Last 24 Hours: My Active Orders 07/21/19 19:23 EKG 12 Lead [EKG Documentation Completion] [RC] STAT 07/21/19 19:50 Abdomen Pelvis w Cont [CT] Stat Ang Chest [CT] Stat 07/21/19 19:51 Orthostatic Vital Signs [RC] STAT 07/21/19 21:57 Magnesium Sulfate/Water [Magnesium Sulfate in Water Premix] 2 gm Premix Bag 1 bag IV ONETIME 06/03/20 22:00 Lactated Ringers [Ringers, Lactated] 1,000 ml IV ASDIRECTED 07/21/19 23:11 Levofloxacin/Dextrose 5%-Water [Levaquin in D5W 750 MG/150 ML] 750 mg Premix Bag 1 bag IV ONETIME metroNIDAZOLE/Normal Saline [Flagyl 500 MG in NS 100 ML] 500 mg Premix Bag 1 bag IV ONETIME 07/21/19 23:15 Pantoprazole [ProTONIX IV] 80 mg Sodium Chloride 0.9% [Normal Saline] 100 ml IV Q10H
[2019-07-21] MEDS ORDERED: Magnesium Sulfate/Water 2 GM in Premix Bag 1 BAG IV ONE (21:57)
[2019-07-21] MEDS ORDERED: Lactated Ringers 1,000 ML IV SCH (22:00)
[2019-07-21] MEDS ORDERED: metroNIDAZOLE/Normal Saline 500 MG in Premix Bag 1 BAG IV STA (23:11)
[2019-07-21] MEDS ORDERED: Levofloxacin/Dextrose 5%-Water 750 MG in Premix Bag 1 BAG IV STA (23:11)
[2019-07-21] MEDS ORDERED: Pantoprazole 40 MG Vial IVPUSH ONE (23:12)
[2019-07-21] MEDS: Pantoprazole 80 MG in Sodium Chloride 0.9% 100 ML IV SCH (23:40)
[2019-07-22] MEDS ORDERED: Ondansetron 4 MG/2 ML SDV IVPUSH PRN (00:45)
[2019-07-22] MEDS: Potassium Chloride 10 MEQ in Premix Bag 1 BAG IV SCH ×4 (01:59→06:01)
[2019-07-22] MEDS: HYDROmorphone 0.5 MG/0.5 ML Syringe IVPUSH PRN ×3 (02:50→20:44)
[2019-07-22] MEDS: Lactated Ringers 1,000 ML IV SCH ×3 (03:52→17:54)
[2019-07-22] MEDS: metroNIDAZOLE/Normal Saline 500 MG in Premix Bag 1 BAG IV SCH ×2 (06:42→15:32)
--- NOTE | 2019-07-22 07:22 | PCM.HP.2 ---
H&P History of Present Illness - General Date of Service: 07/22/19 Admit Problem/Dx: Admission Diagnosis/Problem Admission Diagnosis/Problem Gastric ulcer with perforation Source of Information: Patient, Provider History Limitations: Reports: No Limitations - History of Present Illness Initial Comments - Free Text/Narative: Pt is a 49 y/o female who presents with left sided chest pain and left upper abdominal pain. She was experiencing pain in the LUQ for 3 days, but it acutely worsened last night with radiation throughout the abdomen and up into the chest. She has a history of gastric bypass about 24 years ago. She was given medication for acid suppression last year by her PCP, but has not been taking it since she wasn't sure why she was given the Rs. She denies any melena or stool changes before admission to the hospital. She denies any fever. She has not had any nausea/vomiting. She was seen in the ED with Laboratory and CT scan evaluation. She has leukocytosis with fat stranding around the stomach seen on CT scan. She had no extravasation of contrast. She was admitted to the floor with protonix gtt, antibiotics, and NPO. She has had resolution of much of the pain, with pressure sensation remaining in the upper left abdomen. Left Chest Pain Score (Numeric/FACES): 2 - Related Data Allergies/Adverse Reactions: Allergies Allergy/AdvReac Type Severity Reaction Status Date / Time Dairy Products Allergy Headache Verified 07/21/19 23:54 Home Medications: Home Meds L.acidoph,Paracasei, B.lactis [Probiotic] 1 each PO DAILY 08/04/18 [History] Multivitamin [Multi-Day Vitamins] 1 each PO DAILY 08/04/18 [History] Albuterol Sulfate [Albuterol Sulfate Hfa] 2 puff INH Q4H 04/30/19 [History] Cholecalciferol (Vitamin D3) [Vitamin D3] 2,000 unit PO DAILY 04/30/19 [History] Fluticasone Propionate [Flovent HFA] 1 puff INH BID 04/30/19 [History] Umeclidinium Brm/Vilanterol Tr [Anoro Ellipta 62.5-25 MCG] 1 puff INH DAILY [History] Past Medical History HEENT History: Reports: Impaired Vision Other HEENT History: wears glasses Cardiovascular History: Reports: Blood Clots/VTE/DVT, DC Respiratory History: Reports: COPD Other Respiratory History: emphysema Gastrointestinal History: Reports: Hiatal Hernia, Other (See Below) Other Gastrointestinal History: ulcerative colitis Genitourinary History: Reports: None 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: Musculoskeletal History: Reports: None Neurological History: Reports: None Psychiatric History: Reports: Anxiety, Depression Endocrine/Metabolic History: Reports: None Hematologic History: Reports: Iron Deficiency Immunologic History: Reports: None Oncologic (Cancer) History: Reports: None Dermatologic History: Reports: None - Infectious Disease History Infectious Disease History: Reports: C-Difficile - Past Surgical History Head Surgeries/Procedures: Reports: None Cardiovascular Surgical History: Reports: Other (See Below) GI Surgical History: Reports: Bariatric Procedure Female Surgical History: Reports: Section, Tubal Ligation Endocrine Surgical History: Reports: None Neurological Surgical History: Reports: None Musculoskeletal Surgical History: Reports: None Oncologic Surgical History: Reports: None Social & Family History - Family History OBGYN: Reports: Other (See Below) Other OBGYN Family History: polycystic- DTR Neurological: Reports: Vertigo Endocrine/Metabolic: Reports: Hypothyroidism Other Endocrine/Metabolic Family History: Mother Oncologic: Reports: Leukemia Other Oncologic Family History: Maternal Grandfather- Leukemia - Tobacco Use Smoking Status *Q: Current Every Day Smoker Years of Tobacco use: 30 Packs/Tins Daily: 0.7 Used Tobacco, but Quit: No Month/Year Tobacco Last Used: 07/2019 Second Hand Smoke Exposure: Yes - Caffeine Use Caffeine Use: Reports: None - Alcohol Use Days Per Week of Alcohol Use: 1 Number of Drinks Per Day: 0 Total Drinks Per Week: 0 Date of Last Drink: 07/09/19 Time of Last Drink: 17:00 - Recreational Drug Use Recreational Drug Use: No - Living Situation & Occupation Living situation: Reports: (), Alone Occupation: Unemployed H&P Review of Systems - Review of Systems: Review Of Systems: See Below General: Reports: No Symptoms HEENT: Reports: No Symptoms Pulmonary: Reports: No Symptoms Cardiovascular: Reports: Chest Pain Gastrointestinal: Reports: Abdominal Pain. Denies: Nausea, Vomiting Genitourinary: Reports: No Symptoms Musculoskeletal: Reports: No Symptoms Skin: Reports: No Symptoms Neurological: Denies: Tingling Hematologic/Lymphatic: Reports: No Symptoms Exam - Exam Exam: See Below - Vital Signs Vital Signs: Last Vital Signs Temp 37.0 C 06/04/20 04:51 Pulse 81 07/22/19 04:51 Resp 14 07/22/19 04:51 BP 112/54 L 07/22/19 04:51 Pulse Ox 93 L 07/22/19 04:51 Orthostatic Blood Pressure [ 99/66 Sitting] Orthostatic Blood Pressure [ 92/49 Supine] Weight: 80.014 kg - Exam Quality Assessment: No: Supplemental Oxygen General: Alert, Oriented, Mild Distress (secondary to discomfort) HEENT: Conjunctiva Clear, EOMI Neck: Supple Lungs: Normal Respiratory Effort GI/Abdominal Exam: Soft, No Distention, Tender (mild in epigastrium and LUQ) Extremities: Normal Inspection, No Pedal Edema Peripheral Pulses: 2+: Dorsalis Pedis (L), Dorsalis Pedis (R) Skin: Warm, Dry, Intact Neurological: Cranial Nerves Intact Neuro Extensive - Mental Status: Normal Mood/Affect - Patient Data Lab Results Last 24 hrs: Laboratory Results - last 24 hr 07/21/19 07/21/19 07/21/19 Range/Units 20:10 20:10 20:10 WBC 16.71 H (3.98-10.04) K/mm3 RBC 4.98 (3.98-5.22) M/mm3 Hgb 15.3 (11.2-15.7) gm/dl Hct 45.4 H (34.1-44.9) % MCV 91.2 (79.4-94.8) fl MCH 30.7 (25.6-32.2) pg MCHC 33.7 (32.2-35.5) g/dl RDW Std Deviation 43.4 (36.4-46.3) fL Plt Count 238 (182-369) K/mm3 MPV 10.3 (9.4-12.3) fl Neutrophils % (Manual) 86 H (40-60) % Band Neutrophils % 0 (0-10) % Lymphocytes % (Manual) 11 L (20-40) % Atypical Lymphs % 0 % Monocytes % (Manual) 2 (2-10) % Eosinophils % (Manual) 1 (0.7-5.8) % Basophils % (Manual) 0 L (0.1-1.2) Platelet Estimate Adequate RBC Morph Comment Normal PT 10.9 (9.7-12.0) SECONDS INR 1.00 APTT 27 (22-31) SECONDS Sodium 141 (136-145) mEq/L Potassium 2.9 L D (3.5-5.1) mEq/L Chloride 104 (98-107) mEq/L Carbon Dioxide 25 (21-32) mEq/L Anion Gap 14.9 (5-15) BUN 6 L (7-18) mg/dL Creatinine 0.9 (0.55-1.02) mg/dL Est Cr Clr Drug Dosing 77.28 mL/min Estimated GFR (MDRD) > 60 (>60) mL/min BUN/Creatinine Ratio 6.7 L (14-18) Glucose 119 H (74-106) mg/dL Calcium 9.6 (8.5-10.1) mg/dL Magnesium 1.5 L (1.8-2.4) mg/dl Total Bilirubin 0.7 (0.2-1.0) mg/dL AST 11 L (15-37) U/L ALT 16 (14-59) U/L Alkaline Phosphatase 89 (46-116) U/L Troponin I < 0.017 (0.00-0.056) ng/mL Total Protein 7.1 (6.4-8.2) g/dl Albumin 3.5 (3.4-5.0) g/dl Globulin 3.6 gm/dL Albumin/Globulin Ratio 1.0 (1-2) Lipase 115 (73-393) U/L Result Diagrams: 07/21/19 20:10 07/22/19 07:56 Sepsis Event Note - Evaluation Sepsis Screening Result: No Definite Risk - Focused Exam Vital Signs: Vital Signs Temp Pulse Resp BP Pulse Ox 07/22/19 04:51 37.0 C 81 14 112/54 L 93 L 07/22/19 00:25 37.2 C 71 15 132/89 97 Date Exam was Performed: 07/22/19 Time Exam was Performed: 12:22 *Q Meaningful Use (ADM) - VTE Risk Assess *Q Each Risk Factor Represents 1 Point: Age 41 - 59 years Total Score 1 Point Risk Factors: 1 Each Risk Factor Represents 3 Points: History of DVT/PE Total Score 3 Point Risk Factors: 3 - Problem List (1) Gastric perforation SNOMED Code(s): 140899642 ICD Code: K25.5 - CHRONIC OR UNSPECIFIED GASTRIC ULCER WITH PERFORATION Status: Acute Current Visit: Yes (2) Hypokalemia SNOMED Code(s): 46219912 ICD Code: E87.6 - HYPOKALEMIA Status: Acute Priority: High Current Visit: Yes (3) Hypomagnesemia SNOMED Code(s): 458998606 ICD Code: E83.42 - HYPOMAGNESEMIA Status: Acute Priority: High Current Visit: Yes Problem List Initiated/Reviewed/Updated: Yes Orders Last 24hrs: Active Orders 24 hr Category Date Time Status Admission Status [Patient Status] [ADT] Routine ADT 07/21/19 23:47 Active Nothing Per Oral Diet [DIET] Diet 07/22/19 Breakfast Active Abdomen Pelvis w Cont [CT] Stat Exams 07/21/19 19:50 Taken Ang Chest [CT] Stat Exams 07/21/19 19:50 Taken BMP [BASIC METABOLIC PANEL,BMP] [CHEM] Timed Lab 07/22/19 07:30 Ordered H PYLORI STOOL ANTIGEN [MREF] Urgent Lab 07/22/19 07:21 Ordered HYDROmorphone [Dilaudid] Med 07/22/19 00:45 Active 0.5 mg IVPUSH Q2H PRN Lactated Ringers [Ringers, Lactated] 1,000 ml Med 07/22/19 00:45 Active IV ASDIRECTED Levofloxacin/Dextrose 5%-Water [Levaquin in D5W 750 MG/ Med 07/23/19 01:00 Active 150 ML] 750 mg Premix Bag 1 bag IV Q24H Ondansetron [Zofran] Med 07/22/19 00:45 Active 4 mg IVPUSH Q6H PRN Pantoprazole [ProTONIX IV] 80 mg Med 07/21/19 23:15 Active Sodium Chloride 0.9% [Normal Saline] 100 ml IV Q10H metroNIDAZOLE/Normal Saline [Flagyl 500 MG in NS 100 ML Med 07/22/19 07:30 Active ] 500 mg Premix Bag 1 bag IV Q8H Code Status [Resuscitation Status] Routine Resus Stat 07/22/19 00:48 Ordered Medication Orders Hydromorphone HCl (Dilaudid) 0.5 mg IVPUSH Q2H PRN PRN Reason: Abdominal Pain Last Admin: 07/22/19 02:50 Dose: 0.5 mg Pantoprazole Sodium 80 mg/ (Sodium Chloride) 100 mls @ 10 mls/hr IV Q10H [facility] Last Admin: 07/21/19 23:40 Dose: 8 mg/hr, 10 mls/hr Metronidazole 500 mg/ Premix 100 mls @ 100 mls/hr IV Q8H [facility] Last Admin: 07/22/19 06:42 Dose: 100 mls/hr Lactated Ringer's (Ringers, Lactated) 1,000 mls @ 150 mls/hr IV ASDIRECTED [facility] Last Admin: 07/22/19 03:52 Dose: 150 mls/hr Levofloxacin/Dextrose 750 mg/ (Premix) 150 mls @ 100 mls/hr IV Q24H [facility] Ondansetron HCl (Zofran) 4 mg IVPUSH Q6H PRN PRN Reason: Nausea/Vomiting Assessment/Plan Comment:: 49 y/o lady with visceral perforation, assumed from the stomach. Stable. - continue NPO - IVF resuscitation - IV metronidazole and levofloxacin - continue Protonix Gtt - ambulate ad dl, SCDs while in bed, heparin 5000U subcutaneous Estephanie Rowe MD General Surgery - Mortality Measure Prognosis:: Good
--- NOTE | 2019-07-22 08:48 | CT ---
CT abdomen and pelvis Technique: Multiple axial sections were obtained from above the dome of the diaphragm inferiorly through the pubic symphysis. Intravenous and oral contrast was utilized. Delayed images were also obtained through the abdomen and pelvis. Comparison: Small amount of free air appears to be present within the upper abdomen. Liver contains no focal parenchymal abnormality. Spleen appears within normal limits. Sludge is likely present within the gallbladder as well as small cholesterol-containing gallstones. Adrenal glands show no nodule. Pancreas is within normal limits. Kidneys show symmetric contrast enhancement without hydronephrosis or mass. Prior gastric surgery is noted. Aorta shows no aneurysm. No retroperitoneal adenopathy is seen. Fat-containing anterior abdominal wall hernia is seen located directly above the umbilicus. No pelvic mass or adenopathy is seen. No free fluid is seen. Appendix not visualized with certainty. Degenerative change and scoliosis is noted within the spine. Degenerative change also seen within both hips. Calf delayed images shows contrast within the ureters as well as within the bladder. Impression: 1. Small amount of free air beneath the right hemidiaphragm. Findings suggest the possibility of nonvisualized bowel perforation. 2. Sludge and small cholesterol gallstones believed to be present within the gallbladder. 3. Prior gastric surgery. 4. Fat-containing anterior abdominal wall hernia. Diagnostic code #5 This report was dictated in MDT I agree with preliminary report from [facility], finalized on 07/21/19, 11:22 PM Central Daylight Time
--- NOTE | 2019-07-22 08:48 | CT ---
CT chest Technique: Multiple axial sections through the chest were obtained. Intravenous contrast was utilized. Study has been performed as a pulmonary angiogram protocol. Findings: Pulmonary arteries are well opacified. No filling defects are seen to indicate pulmonary embolism. Aorta shows no aneurysm. Mediastinum and hilar region show no adenopathy. No axillary adenopathy is appreciated. Free air is again seen beneath the right hemidiaphragm as described on recent CT abdomen and pelvis exam. Lungs show emphysematous change. Scattered areas of scarring are seen which appear stable. Small pleural-based nodule is noted within the right middle lobe measuring 6 mm which is also stable. No acute parenchymal process is seen. Right-sided thyroid nodule is noted measuring about 1.9 cm. This finding has slightly increased in size from prior exam. Bone window settings were reviewed. No acute osseous finding is appreciated. Mild degenerative change is scattered throughout the spine. Impression: 1. No findings of pulmonary embolism. 2. Emphysematous change with stable areas of scarring. 3. 1.9 cm nodule within the right thyroid gland. Thyroid ultrasound recommended at some time in the near future. Diagnostic code #3 This report was dictated in MDT I agree with preliminary report from [facility], finalized on 07/21/19, 11:42 PM [place] Daylight Time
[2019-07-22] MEDS: Heparin Sodium 5,000 Units/ML Vial SUBCUT SCH ×2 (09:00→15:45)
[2019-07-22] MEDS: Pantoprazole 80 MG in Sodium Chloride 0.9% 100 ML IV SCH ×2 (09:49→20:45)
[2019-07-22] MEDS ORDERED: Nicotine 14 MG/24 Hr Patch TRDERM SCH (16:30)
[2019-07-22] MEDS: Nicotine 14 MG/24 Hr Patch TRDERM SCH (20:44)
[2019-07-23] MEDS: Levofloxacin/Dextrose 5%-Water 750 MG in Premix Bag 1 BAG IV SCH (00:27)
[2019-07-23] MEDS: Lactated Ringers 1,000 ML IV SCH ×2 (00:28→06:33)
[2019-07-23] MEDS: metroNIDAZOLE/Normal Saline 500 MG in Premix Bag 1 BAG IV SCH ×3 (00:28→16:14)
[2019-07-23] MEDS: Heparin Sodium 5,000 Units/ML Vial SUBCUT SCH ×3 (00:29→16:14)
[2019-07-23] MEDS: HYDROmorphone 0.5 MG/0.5 ML Syringe IVPUSH PRN ×2 (03:37→11:07)
--- NOTE | 2019-07-23 09:42 | PCM.SURGPN ---
- General Info Date of Service: 07/23/19 Functional Status: Reports: Pain Controlled, Ambulating, Urinating, Other ( loose stools) - Patient Data Vitals - Most Recent: Last Vital Signs Temp 37.1 C 07/23/19 09:07 Pulse 75 07/23/19 09:07 Resp 16 07/23/19 09:07 BP 104/54 L 07/23/19 09:07 Pulse Ox 92 L 07/23/19 09:07 Orthostatic Blood Pressure [ 99/66 Sitting] Orthostatic Blood Pressure [ 92/49 Supine] Weight - Most Recent: 82.191 kg I&O - Last 24 Hours: Intake & Output 07/22/19 07/23/19 07/23/19 22:59 06:59 14:59 Intake Total 1984 1830 Output Total 640 Balance 1344 1830 Lab Results Last 24 Hrs: Laboratory Results - last 24 hr 07/23/19 07/23/19 Range/Units 05:03 05:03 WBC 10.59 H (3.98-10.04) K/mm3 RBC 3.96 L (3.98-5.22) M/mm3 Hgb 12.1 D (11.2-15.7) gm/dl Hct 37.1 (34.1-44.9) % MCV 93.7 (79.4-94.8) fl MCH 30.6 (25.6-32.2) pg MCHC 32.6 (32.2-35.5) g/dl RDW Std Deviation 45.1 (36.4-46.3) fL Plt Count 153 L D (182-369) K/mm3 MPV 11.0 (9.4-12.3) fl Sodium 137 (136-145) mEq/L Potassium 3.0 L (3.5-5.1) mEq/L Chloride 104 (98-107) mEq/L Carbon Dioxide 25 (21-32) mEq/L Anion Gap 11.0 (5-15) BUN 6 L (7-18) mg/dL Creatinine 0.7 (0.55-1.02) mg/dL Est Cr Clr Drug Dosing 106.27 mL/min Estimated GFR (MDRD) > 60 (>60) mL/min BUN/Creatinine Ratio 8.6 L (14-18) Glucose 90 (74-106) mg/dL Calcium 8.0 L (8.5-10.1) mg/dL Francis Results Last 24 Hrs: Microbiology 07/22/19 15:54 Helicobacter pylori Antigen - Final Stool / Feces NEGATIVE H. PYLORI AG REFERENCE RANGE: NEGATIVE Med Orders - Current: Current Medications Heparin Sodium (Porcine) (Heparin Sodium) 5,000 units SUBCUT Q8H [facility] Last Admin: 07/23/19 09:14 Dose: 5,000 units Hydromorphone HCl (Dilaudid) 0.5 mg IVPUSH Q2H PRN PRN Reason: Abdominal Pain Last Admin: 07/23/19 03:37 Dose: 0.5 mg Pantoprazole Sodium 80 mg/ (Sodium Chloride) 100 mls @ 10 mls/hr IV Q10H [facility] Last Admin: 07/22/19 20:45 Dose: 8 mg/hr, 10 mls/hr Metronidazole 500 mg/ Premix 100 mls @ 100 mls/hr IV Q8H [facility] Last Admin: 07/23/19 06:32 Dose: 100 mls/hr Lactated Ringer's (Ringers, Lactated) 1,000 mls @ 150 mls/hr IV ASDIRECTED [facility] Last Admin: 07/23/19 06:33 Dose: 150 mls/hr Levofloxacin/Dextrose 750 mg/ (Premix) 150 mls @ 100 mls/hr IV Q24H [facility] Last Admin: 07/23/19 00:27 Dose: 100 mls/hr Miscellaneous Information (Remove Patch) 1 ea TRDERM DAILY@1630 [facility] Nicotine (Habitrol) 14 mg TRDERM DAILY@1630 [facility] Last Admin: 07/22/19 20:44 Dose: Not Given Ondansetron HCl (Zofran) 4 mg IVPUSH Q6H PRN PRN Reason: Nausea/Vomiting Discontinued Medications Lactated Ringer's (Ringers, Lactated) 1,000 mls @ 999 mls/hr IV .BOLUS ONE Stop: 07/21/19 20:52 Last Admin: 07/21/19 20:03 Dose: 999 mls/hr Lactated Ringer's (Ringers, Lactated) 1,000 mls @ 250 mls/hr IV ASDIRECTED [facility] Last Admin: 07/21/19 22:16 Dose: 250 mls/hr Magnesium Sulfate 2 gm/ Premix 50 mls @ 25 mls/hr IV ONETIME ONE Stop: 07/21/19 23:56 Last Admin: 07/21/19 22:16 Dose: 25 mls/hr Levofloxacin/Dextrose 750 mg/ (Premix) 150 mls @ 100 mls/hr IV ONETIME STA Stop: 07/22/19 00:40 Last Admin: 07/22/19 01:02 Dose: 100 mls/hr Metronidazole 500 mg/ Premix 100 mls @ 100 mls/hr IV ONETIME STA Stop: 07/22/19 00:10 Last Admin: 07/21/19 23:46 Dose: 100 mls/hr Potassium Chloride 10 meq/ (Premix) 100 mls @ 100 mls/hr IV Q1H [facility] Stop: 07/22/19 04:59 Last Admin: 07/22/19 06:01 Dose: 100 mls/hr Nicotine (Habitrol) 14 mg TRDERM DAILY [facility] Pantoprazole Sodium (Protonix Iv) 80 mg IVPUSH BOLUS ONE Stop: 07/21/19 23:13 Last Admin: 07/21/19 23:37 Dose: 80 mg - Exam Quality Assessment: No: Supplemental Oxygen General: Alert, Oriented HEENT: EOMI Neck: Supple Lungs: Normal Respiratory Effort GI/Abdominal Exam: Soft, Non-Tender. No: Guarding Sepsis Event Note - Evaluation Sepsis Screening Result: No Definite Risk - Focused Exam Vital Signs: Vital Signs Temp Pulse Resp BP Pulse Ox 07/23/19 09:07 37.1 C 75 16 104/54 L 92 L 07/23/19 03:35 36.7 C 81 18 115/57 L 92 L Date Exam was Performed: 07/23/19 Time Exam was Performed: 09:48 - Problem List & Annotations (1) Gastric perforation SNOMED Code(s): 788854985 Code(s): K25.5 - CHRONIC OR UNSPECIFIED GASTRIC ULCER WITH PERFORATION Status: Acute Current Visit: Yes (2) Hypokalemia SNOMED Code(s): 87180973 Code(s): E87.6 - HYPOKALEMIA Status: Acute Priority: High Current Visit : Yes (3) Hypomagnesemia SNOMED Code(s): 189305600 Code(s): E83.42 - HYPOMAGNESEMIA Status: Acute Priority: High Current Visit: Yes - Problem List Review Problem List Initiated/Reviewed/Updated: Yes - My Orders Last 24 Hours: Active Orders 24 hr Category Date Time Status BASIC METABOLIC PANEL,BMP [CHEM] AM Lab 07/24/19 05:11 Ordered BASIC METABOLIC PANEL,BMP [CHEM] AM Lab 07/25/19 05:11 Ordered CBC W/O DIFF,HEMOGRAM [HEME] AM Lab 07/24/19 05:11 Ordered CBC W/O DIFF,HEMOGRAM [HEME] AM Lab 07/25/19 05:11 Ordered Levofloxacin/Dextrose 5%-Water [Levaquin in D5W 750 MG/ Med 07/23/19 01:00 Active 150 ML] 750 mg Premix Bag 1 bag IV Q24H Nicotine [Habitrol] Med 07/22/19 16:30 Active 14 mg TRDERM DAILY@1630 Remove Patch Med 07/23/19 16:30 Active 1 ea TRDERM DAILY@1630 Medication Orders Heparin Sodium (Porcine) (Heparin Sodium) 5,000 units SUBCUT Q8H [facility] Last Admin: 07/23/19 09:14 Dose: 5,000 units Admin: 07/23/19 00:29 Dose: 5,000 units Admin: 07/22/19 15:45 Dose: 5,000 units Admin: 07/22/19 09:00 Dose: 5,000 units Hydromorphone HCl (Dilaudid) 0.5 mg IVPUSH Q2H PRN PRN Reason: Abdominal Pain Last Admin: 07/23/19 03:37 Dose: 0.5 mg Admin: 07/22/19 20:44 Dose: 0.5 mg Admin: 07/22/19 10:16 Dose: 0.5 mg Admin: 07/22/19 02:50 Dose: 0.5 mg Pantoprazole Sodium 80 mg/ (Sodium Chloride) 100 mls @ 10 mls/hr IV Q10H [facility] Last Admin: 07/22/19 20:45 Dose: 8 mg/hr, 10 mls/hr Infusion: 07/22/19 19:49 Dose: 8 mg/hr, 10 mls/hr Admin: 07/22/19 09:49 Dose: 8 mg/hr, 10 mls/hr Infusion: 07/22/19 09:40 Dose: 8 mg/hr, 10 mls/hr Admin: 07/21/19 23:40 Dose: 8 mg/hr, 10 mls/hr Metronidazole 500 mg/ Premix 100 mls @ 100 mls/hr IV Q8H [facility] Last Admin: 07/23/19 06:32 Dose: 100 mls/hr Infusion: 07/23/19 01:28 Dose: 100 mls/hr Admin: 07/23/19 00:28 Dose: 100 mls/hr Infusion: 07/22/19 16:32 Dose: 100 mls/hr Admin: 07/22/19 15:32 Dose: 100 mls/hr Infusion: 07/22/19 07:42 Dose: 100 mls/hr Admin: 07/22/19 06:42 Dose: 100 mls/hr Lactated Ringer's (Ringers, Lactated) 1,000 mls @ 150 mls/hr IV ASDIRECTED [facility] Last Admin: 07/23/19 06:33 Dose: 150 mls/hr Infusion: 07/23/19 06:33 Dose: 150 mls/hr Admin: 07/23/19 00:28 Dose: 150 mls/hr Infusion: 07/23/19 00:28 Dose: 150 mls/hr Admin: 07/22/19 17:54 Dose: 150 mls/hr Infusion: 07/22/19 16:54 Dose: 150 mls/hr Admin: 07/22/19 10:13 Dose: 150 mls/hr Infusion: 07/22/19 10:13 Dose: 150 mls/hr Admin: 07/22/19 03:52 Dose: 150 mls/hr Levofloxacin/Dextrose 750 mg/ (Premix) 150 mls @ 100 mls/hr IV Q24H [facility] Last Admin: 07/23/19 00:27 Dose: 100 mls/hr Miscellaneous Information (Remove Patch) 1 ea TRDERM DAILY@1630 [facility] Nicotine (Habitrol) 14 mg TRDERM DAILY@1630 [facility] Last Admin: 07/22/19 20:44 Dose: Not Given Ondansetron HCl (Zofran) 4 mg IVPUSH Q6H PRN PRN Reason: Nausea/Vomiting - Assessment Assessment (Free Text/Narrative):: 49 y/o lady with visceral perforation. Appears to be gastric perforation, now sealed - Plan Plan (Free Text/Narrative):: - advance to clear liquids - d/c protonix gtt, transfer to PO - PO potassium repletion - convert to maintenance fluids D5 1/2NS with 20KCl @100mL /hr - continue ambulation, SCDs and heparin subcutaneous - continue abx - continue current pain regimen Anticipate discharge home tomorrow Estephanie Rowe MD General Surgery
[2019-07-23] MEDS ORDERED: Albuterol 6.7 GM Inhaler INH PRN (09:45)
[2019-07-23] MEDS: D5 1/2 NS w/ 20 mEq/L KCl 1,000 ML IV SCH ×2 (11:11→21:42)
[2019-07-23] MEDS: Pantoprazole 80 MG in Sodium Chloride 0.9% 100 ML IV SCH (12:38)
[2019-07-23] MEDS: Pantoprazole 40 MG Tab.CR PO SCH (16:14)
[2019-07-23] MEDS: Nicotine 14 MG/24 Hr Patch TRDERM SCH (16:15)
[2019-07-23] MEDS ORDERED: [UNRECOGNIZED DRUG - OTHER] TRDERM SCH (16:30)
[2019-07-24] MEDS: metroNIDAZOLE/Normal Saline 500 MG in Premix Bag 1 BAG IV SCH ×2 (00:30→06:30)
[2019-07-24] MEDS: Levofloxacin/Dextrose 5%-Water 750 MG in Premix Bag 1 BAG IV SCH (00:30)
[2019-07-24] MEDS: Heparin Sodium 5,000 Units/ML Vial SUBCUT SCH ×2 (00:31→08:28)
[2019-07-24] MEDS: HYDROmorphone 0.5 MG/0.5 ML Syringe IVPUSH PRN ×2 (00:46→06:24)
[2019-07-24] MEDS: Pantoprazole 40 MG Tab.CR PO SCH (06:24)
[2019-07-24] MEDS: D5 1/2 NS w/ 20 mEq/L KCl 1,000 ML IV SCH (06:29)
[2019-07-24] MEDS ORDERED: Saccharomyces Boulardii (Probiotic) 250 MG Cap PO SCH (09:00)
[2019-07-24] MEDS ORDERED: Multivitamins,Therapeutic Tab PO SCH (09:00)
[2019-07-24] MEDS ORDERED: Cholecalciferol (Vitamin D3) 25 MCG Tab PO SCH (09:00)
[2019-07-24] MEDS ORDERED: Acetaminophen 325 MG Tab PO PRN (09:47)
[2019-07-24] MEDS ORDERED: Acetaminophen/HYDROcodone 325-5 MG Tab PO PRN (09:48)
[2019-07-24] MEDS ORDERED: Potassium Chloride 10% 20 MEQ/15 ML Soln 15 ML UD Cup PO ONE (10:01)
--- NOTE | 2019-07-24 10:07 | PCM.SURGPN ---
- General Info Date of Service: 07/24/19 Functional Status: Reports: Pain Controlled, Tolerating Diet (clears), Ambulating, Urinating - Patient Data Vitals - Most Recent: Last Vital Signs Temp 36.7 C 07/24/19 08:15 Pulse 65 07/24/19 08:15 Resp 16 07/24/19 08:15 BP 119/75 07/24/19 08:15 Pulse Ox 92 L 07/24/19 08:15 Orthostatic Blood Pressure [ 99/66 Sitting] Orthostatic Blood Pressure [ 92/49 Supine] Weight - Most Recent: 83.733 kg I&O - Last 24 Hours: Intake & Output 07/23/19 07/24/19 07/24/19 22:59 06:59 14:59 Intake Total 2278 1798 Balance 2277 1798 Lab Results Last 24 Hrs: Laboratory Results - last 24 hr 07/24/19 07/24/19 Range/Units 05:35 05:35 WBC 6.35 (3.98-10.04) K/mm3 RBC 3.81 L (3.98-5.22) M/mm3 Hgb 11.6 (11.2-15.7) gm/dl Hct 35.9 (34.1-44.9) % MCV 94.2 (79.4-94.8) fl MCH 30.4 (25.6-32.2) pg MCHC 32.3 (32.2-35.5) g/dl RDW Std Deviation 44.1 (36.4-46.3) fL Plt Count 159 L (182-369) K/mm3 MPV 10.6 (9.4-12.3) fl Sodium 142 (136-145) mEq/L Potassium 3.1 L (3.5-5.1) mEq/L Chloride 106 (98-107) mEq/L Carbon Dioxide 26 (21-32) mEq/L Anion Gap 13.1 (5-15) BUN 4 L (7-18) mg/dL Creatinine 0.7 (0.55-1.02) mg/dL Est Cr Clr Drug Dosing 106.27 mL/min Estimated GFR (MDRD) > 60 (>60) mL/min BUN/Creatinine Ratio 5.7 L (14-18) Glucose 105 (74-106) mg/dL Calcium 8.0 L (8.5-10.1) mg/dL Med Orders - Current: Current Medications Acetaminophen (Tylenol) 650 mg PO Q4H PRN PRN Reason: Pain (mild 1-3) Hydrocodone Bitart/Acetaminophen ([place] 325-5 Mg) 1 tab PO Q6H PRN PRN Reason: Pain (moderate 4-6) Albuterol (Proventil Hfa) 0 gm INH Q4H PRN PRN Reason: Shortness of Breath Cholecalciferol (Vitamin D3) 50 mcg PO DAILY [facility] Last Admin: 07/24/19 08:28 Dose: 50 mcg Heparin Sodium (Porcine) (Heparin Sodium) 5,000 units SUBCUT Q8H [facility] Last Admin: 07/24/19 08:28 Dose: 5,000 units Metronidazole 500 mg/ Premix 100 mls @ 100 mls/hr IV Q8H [facility] Last Admin: 07/24/19 06:30 Dose: 100 mls/hr Levofloxacin/Dextrose 750 mg/ (Premix) 150 mls @ 100 mls/hr IV Q24H [facility] Last Admin: 07/24/19 00:30 Dose: 100 mls/hr Miscellaneous Information (Remove Patch) 1 ea TRDERM DAILY@1630 [facility] Last Admin: 07/23/19 16:15 Dose: Not Given Multivitamins (Thera) 1 each PO DAILY [facility] Last Admin: 07/24/19 08:28 Dose: 1 each Nicotine (Habitrol) 14 mg TRDERM DAILY@1630 [facility] Last Admin: 07/23/19 16:15 Dose: Not Given Ondansetron HCl (Zofran) 4 mg IVPUSH Q6H PRN PRN Reason: Nausea/Vomiting Pantoprazole Sodium (Protonix) 40 mg PO BIDAC [facility] Last Admin: 07/24/19 06:24 Dose: 40 mg Umeclidinium Brm/Vilanterol Tr [Anoro Ellipta 62.5-25 Mcg 0 each INH DAILY [facility] Last Admin: 07/24/19 08:29 Dose: Not Given Saccharomyces Boulardii (Florastor) 250 mg PO DAILY [facility] Last Admin: 07/24/19 08:28 Dose: 250 mg Discontinued Medications Hydromorphone HCl (Dilaudid) 0.5 mg IVPUSH Q2H PRN PRN Reason: Abdominal Pain Last Admin: 07/24/19 06:24 Dose: 0.5 mg Lactated Ringer's (Ringers, Lactated) 1,000 mls @ 999 mls/hr IV .BOLUS ONE Stop: 07/21/19 20:52 Last Admin: 07/21/19 20:03 Dose: 999 mls/hr Lactated Ringer's (Ringers, Lactated) 1,000 mls @ 250 mls/hr IV ASDIRECTED [facility] Last Admin: 07/21/19 22:16 Dose: 250 mls/hr Magnesium Sulfate 2 gm/ Premix 50 mls @ 25 mls/hr IV ONETIME ONE Stop: 07/21/19 23:56 Last Admin: 07/21/19 22:16 Dose: 25 mls/hr Levofloxacin/Dextrose 750 mg/ (Premix) 150 mls @ 100 mls/hr IV ONETIME STA Stop: 07/22/19 00:40 Last Admin: 07/22/19 01:02 Dose: 100 mls/hr Metronidazole 500 mg/ Premix 100 mls @ 100 mls/hr IV ONETIME STA Stop: 07/22/19 00:10 Last Admin: 07/21/19 23:46 Dose: 100 mls/hr Pantoprazole Sodium 80 mg/ (Sodium Chloride) 100 mls @ 10 mls/hr IV Q10H [facility] Last Admin: 07/23/19 12:38 Dose: Not Given Lactated Ringer's (Ringers, Lactated) 1,000 mls @ 150 mls/hr IV ASDIRECTED [facility] Last Admin: 07/23/19 06:33 Dose: 150 mls/hr Potassium Chloride 10 meq/ (Premix) 100 mls @ 100 mls/hr IV Q1H [facility] Stop: 07/22/19 04:59 Last Admin: 07/22/19 06:01 Dose: 100 mls/hr Potassium Chloride/Dextrose/Sod Cl (D5 1/2 Ns W/ 20 Meq/L Kcl) 1,000 mls @ 100 mls/hr IV ASDIRECTED [facility] Last Admin: 07/24/19 06:29 Dose: 100 mls/hr Nicotine (Habitrol) 14 mg TRDERM DAILY [facility] Pantoprazole Sodium (Protonix Iv) 80 mg IVPUSH BOLUS ONE Stop: 07/21/19 23:13 Last Admin: 07/21/19 23:37 Dose: 80 mg Potassium Chloride (Potassium Chloride Solution) 20 meq PO ONETIME ONE Stop: 07/24/19 10:02 - Exam General: Alert, Oriented HEENT: EOMI Neck: Supple Lungs: Normal Respiratory Effort GI/Abdominal Exam: Soft, No Distention, Tender (minimal on left hemiabdomen). No: Guarding Sepsis Event Note - Evaluation Sepsis Screening Result: No Definite Risk - Focused Exam Vital Signs: Vital Signs Temp Pulse Resp BP Pulse Ox 07/24/19 08:15 36.7 C 65 16 119/75 92 L 07/24/19 06:16 61 18 115/48 L 94 L Date Exam was Performed: 07/24/19 Time Exam was Performed: 10:03 - Problem List & Annotations (1) Gastric perforation SNOMED Code(s): 761934875 Code(s): K25.5 - CHRONIC OR UNSPECIFIED GASTRIC ULCER WITH PERFORATION Status: Acute Current Visit: Yes (2) Hypokalemia SNOMED Code(s): 01842008 Code(s): E87.6 - HYPOKALEMIA Status: Acute Priority: High Current Visit : Yes (3) Hypomagnesemia SNOMED Code(s): 369021247 Code(s): E83.42 - HYPOMAGNESEMIA Status: Acute Priority: High Current Visit: Yes - Problem List Review Problem List Initiated/Reviewed/Updated: Yes - My Orders Last 24 Hours: Active Orders 24 hr Category Date Time Status Ready for Discharge [RC] PER UNIT ROUTINE Care 07/24/19 10:00 Ordered Regular Diet [DIET] Diet 07/24/19 Lunch Ordered BASIC METABOLIC PANEL,BMP [CHEM] AM Lab 07/25/19 05:11 Ordered CBC W/O DIFF,HEMOGRAM [HEME] AM Lab 07/25/19 05:11 Ordered Acetaminophen [Tylenol] Med 07/24/19 09:47 Active 650 mg PO Q4H PRN Acetaminophen/HYDROcodone [[place] 325-5 MG] Med 07/24/19 09:48 Active 1 tab PO Q6H PRN Albuterol [Proventil HFA] Med 07/23/19 09:45 Active 0 gm INH Q4H PRN Cholecalciferol (Vitamin D3) [Vitamin D3] Med 07/24/19 09:00 Active 50 mcg PO DAILY Multivitamins,Therapeutic [Thera] Med 07/24/19 09:00 Active 1 each PO DAILY Pantoprazole [ProTONIX] Med 07/23/19 16:00 Active 40 mg PO BIDAC Patient's Own Medication [Ptom] Med 07/24/19 09:00 Active 0 each INH DAILY Remove Patch Med 07/23/19 16:30 Active 1 ea TRDERM DAILY@1630 Saccharomyces Boulardii [Florastor] Med 07/24/19 09:00 Active 250 mg PO DAILY Medication Orders Acetaminophen (Tylenol) 650 mg PO Q4H PRN PRN Reason: Pain (mild 1-3) Hydrocodone Bitart/Acetaminophen ([place] 325-5 Mg) 1 tab PO Q6H PRN PRN Reason: Pain (moderate 4-6) Albuterol (Proventil Hfa) 0 gm INH Q4H PRN PRN Reason: Shortness of Breath Cholecalciferol (Vitamin D3) 50 mcg PO DAILY [facility] Last Admin: 07/24/19 08:28 Dose: 50 mcg Heparin Sodium (Porcine) (Heparin Sodium) 5,000 units SUBCUT Q8H [facility] Last Admin: 07/24/19 08:28 Dose: 5,000 units Admin: 07/24/19 00:31 Dose: 5,000 units Admin: 07/23/19 16:14 Dose: 5,000 units Admin: 07/23/19 09:14 Dose: 5,000 units Admin: 07/23/19 00:29 Dose: 5,000 units Admin: 07/22/19 15:45 Dose: 5,000 units Admin: 07/22/19 09:00 Dose: 5,000 units Metronidazole 500 mg/ Premix 100 mls @ 100 mls/hr IV Q8H [facility] Last Admin: 07/24/19 06:30 Dose: 100 mls/hr Infusion: 07/24/19 01:30 Dose: 100 mls/hr Admin: 07/24/19 00:30 Dose: 100 mls/hr Infusion: 07/23/19 17:14 Dose: 100 mls/hr Admin: 07/23/19 16:14 Dose: 100 mls/hr Infusion: 07/23/19 07:32 Dose: 100 mls/hr Admin: 07/23/19 06:32 Dose: 100 mls/hr Infusion: 07/23/19 01:28 Dose: 100 mls/hr Admin: 07/23/19 00:28 Dose: 100 mls/hr Infusion: 07/22/19 16:32 Dose: 100 mls/hr Admin: 07/22/19 15:32 Dose: 100 mls/hr Infusion: 07/22/19 07:42 Dose: 100 mls/hr Admin: 07/22/19 06:42 Dose: 100 mls/hr Levofloxacin/Dextrose 750 mg/ (Premix) 150 mls @ 100 mls/hr IV Q24H [facility] Last Admin: 07/24/19 00:30 Dose: 100 mls/hr Infusion: 07/23/19 01:57 Dose: 100 mls/hr Admin: 07/23/19 00:27 Dose: 100 mls/hr Miscellaneous Information (Remove Patch) 1 ea TRDERM DAILY@1630 [facility] Last Admin: 07/23/19 16:15 Dose: Multivitamins (Thera) 1 each PO DAILY [facility] Last Admin: 07/24/19 08:28 Dose: 1 each Nicotine (Habitrol) 14 mg TRDERM DAILY@1630 [facility] Last Admin: 07/23/19 16:15 Dose: Not Given Admin: 07/22/19 20:44 Dose: Not Given Ondansetron HCl (Zofran) 4 mg IVPUSH Q6H PRN PRN Reason: Nausea/Vomiting Pantoprazole Sodium (Protonix) 40 mg PO BIDAC [facility] Last Admin: 07/24/19 06:24 Dose: 40 mg Admin: 07/23/19 16:14 Dose: 40 mg Umeclidinium Brm/Vilanterol Tr [Anoro Ellipta 62.5-25 Mcg 0 each INH DAILY [facility] Last Admin: 07/24/19 08:29 Dose: Saccharomyces Boulardii (Florastor) 250 mg PO DAILY [facility] Last Admin: 07/24/19 08:28 Dose: 250 mg - Assessment Assessment (Free Text/Narrative):: 49 y/o lady with visceral perforation. Clinically consistent with perforated gastric ulcer - Plan Plan (Free Text/Narrative):: - transition to regular diet - oral pantoprazole BID - PO abx with augmentin for total 14 day course - with history of C. diff, pt instructed to continue probiotics and watch for diarrhea while on antibiotics - PO pain control with [place] or Tylenol - Oral repletion of potassium Plan to d/c home today if tolerates regular diet. Clinic follow up to schedule endoscopy Estephanie Rowe MD General surgery
--- NOTE | 2019-07-24 10:09 | PCM.DCSUM1 ---
Discharge Summary - Hospital Course Free Text/Narrative:: Pt was admitted from the ED where she presented with findings of free air but no contrast extravasation. Clinical picture was consistent with a perforated gastric ulcer that had sealed. Pt was given supportive treatment with antibiotics. She progressed well and was started on clear liquids on hospital day 2. On HOD 3 was given a regular diet. She had resolved her pain and WBC, and was discharged home Diagnosis: Stroke: No Modified Geo Scale: No Signif.Disability Despite Sympt.Able to Carry Out Usual Act./Duties Modified Geo Scale Score: 1 - Discharge Data Discharge Date: 07/24/19 Discharge Disposition: Home, Self-Care 01 Condition: Good - Referral to Home Health Primary Care Physician: Marita Wong NP - Discharge Diagnosis/Problem(s) (1) Gastric perforation SNOMED Code(s): 849430985 ICD Code: K25.5 - CHRONIC OR UNSPECIFIED GASTRIC ULCER WITH PERFORATION Status: Acute Current Visit: Yes (2) Hypokalemia SNOMED Code(s): 61647702 ICD Code: E87.6 - HYPOKALEMIA Status: Acute Priority: High Current Visit: Yes (3) Hypomagnesemia SNOMED Code(s): 095450353 ICD Code: E83.42 - HYPOMAGNESEMIA Status: Acute Priority: High Current Visit: Yes - Patient Instructions Diet: Usual Diet as Tolerated Activity: As Tolerated Showering/Bathing: May Shower Notify Provider of: Fever, Increased Pain, Nausea and/or Vomiting - Discharge Plan *PRESCRIPTION DRUG MONITORING PROGRAM REVIEWED*: Not Applicable *COPY OF PRESCRIPTION DRUG MONITORING REPORT IN PATIENT EMILY: Not Applicable Prescriptions/Med Rec: Acetaminophen/HYDROcodone [[place] 325-5 MG] 1 tab PO Q6H PRN 14 Days #12 tablet PRN Reason: Pain (Moderate 4-6) Amoxicillin/Potassium Clav [Augmentin 875-125 Tablet] 1 each PO BID 12 Days #24 tablet Pantoprazole [ProTONIX] 40 mg PO BIDAC 30 Days #60 tab.cr Home Medications: Home Meds L.acidoph,Paracasei, B.lactis [Probiotic] 1 each PO DAILY 08/04/18 [History] Multivitamin [Multi-Day Vitamins] 1 each PO DAILY 08/04/18 [History] Albuterol Sulfate [Albuterol Sulfate Hfa] 2 puff INH Q4H 03/13/20 [History] Cholecalciferol (Vitamin D3) [Vitamin D3] 2,000 unit PO DAILY 04/30/19 [History] Fluticasone Propionate [Flovent HFA] 1 puff INH BID 04/30/19 [History] Umeclidinium Brm/Vilanterol Tr [Anoro Ellipta 62.5-25 MCG] 1 puff INH DAILY [History] Acetaminophen/HYDROcodone [[place] 325-5 MG] 1 tab PO Q6H PRN 14 Days #12 tablet 07/24/19 [Rx] Amoxicillin/Potassium Clav [Augmentin 875-125 Tablet] 1 each PO BID 12 Days #24 tablet 07/24/19 [Rx] Pantoprazole [ProTONIX] 40 mg PO BIDAC 30 Days #60 tab.cr 07/24/19 [Rx] Patient Handouts: Steps to Quit Smoking Forms: ED Department Discharge Referrals: Marita Wong NP [Primary Care Provider] - Sukhdev Dela Cruz MD [Ordering Only Provider] - Autumn Bower NP [Nurse Practitioner] - (follow up in 2 weeks) - Discharge Summary/Plan Comment DC Time >30 min.: No - Patient Data Vitals - Most Recent: Last Vital Signs Temp 36.7 C 07/24/19 08:15 Pulse 65 07/24/19 08:15 Resp 16 07/24/19 08:15 BP 119/75 07/24/19 08:15 Pulse Ox 92 L 07/24/19 08:15 Orthostatic Blood Pressure [ 99/66 Sitting] Orthostatic Blood Pressure [ 92/49 Supine] Weight - Most Recent: 83.733 kg I&O - Last 24 hours: Intake & Output 07/23/19 07/24/19 07/24/19 22:59 06:59 14:59 Intake Total 2278 1798 Balance 2278 1798 Lab Results - Last 24 hrs: Laboratory Results - last 24 hr 07/24/19 07/24/19 Range/Units 05:35 05:35 WBC 6.35 (3.98-10.04) K/mm3 RBC 3.81 L (3.98-5.22) M/mm3 Hgb 11.6 (11.2-15.7) gm/dl Hct 35.9 (34.1-44.9) % MCV 94.2 (79.4-94.8) fl MCH 30.4 (25.6-32.2) pg MCHC 32.3 (32.2-35.5) g/dl RDW Std Deviation 44.1 (36.4-46.3) fL Plt Count 159 L (182-369) K/mm3 MPV 10.6 (9.4-12.3) fl Sodium 142 (136-145) mEq/L Potassium 3.1 L (3.5-5.1) mEq/L Chloride 106 (98-107) mEq/L Carbon Dioxide 26 (21-32) mEq/L Anion Gap 13.1 (5-15) BUN 4 L (7-18) mg/dL Creatinine 0.7 (0.55-1.02) mg/dL Est Cr Clr Drug Dosing 106.27 mL/min Estimated GFR (MDRD) > 60 (>60) mL/min BUN/Creatinine Ratio 5.7 L (14-18) Glucose 105 (74-106) mg/dL Calcium 8.0 L (8.5-10.1) mg/dL Med Orders - Current: Current Medications Acetaminophen (Tylenol) 650 mg PO Q4H PRN PRN Reason: Pain (mild 1-3) Hydrocodone Bitart/Acetaminophen ([place] 325-5 Mg) 1 tab PO Q6H PRN PRN Reason: Pain (moderate 4-6) Albuterol (Proventil Hfa) 0 gm INH Q4H PRN PRN Reason: Shortness of Breath Cholecalciferol (Vitamin D3) 50 mcg PO DAILY [facility] Last Admin: 07/24/19 08:28 Dose: 50 mcg Heparin Sodium (Porcine) (Heparin Sodium) 5,000 units SUBCUT Q8H [facility] Last Admin: 07/24/19 08:28 Dose: 5,000 units Metronidazole 500 mg/ Premix 100 mls @ 100 mls/hr IV Q8H [facility] Last Admin: 07/24/19 06:30 Dose: 100 mls/hr Levofloxacin/Dextrose 750 mg/ (Premix) 150 mls @ 100 mls/hr IV Q24H [facility] Last Admin: 07/24/19 00:30 Dose: 100 mls/hr Miscellaneous Information (Remove Patch) 1 ea TRDERM DAILY@1630 [facility] Last Admin: 07/23/19 16:15 Dose: Not Given Multivitamins (Thera) 1 each PO DAILY [facility] Last Admin: 07/24/19 08:28 Dose: 1 each Nicotine (Habitrol) 14 mg TRDERM DAILY@1630 [facility] Last Admin: 07/23/19 16:15 Dose: Not Given Ondansetron HCl (Zofran) 4 mg IVPUSH Q6H PRN PRN Reason: Nausea/Vomiting Pantoprazole Sodium (Protonix) 40 mg PO BIDAC [facility] Last Admin: 07/24/19 06:24 Dose: 40 mg Umeclidinium Brm/Vilanterol Tr [Anoro Ellipta 62.5-25 Mcg 0 each INH DAILY [facility] Last Admin: 07/24/19 08:29 Dose: Not Given Saccharomyces Boulardii (Florastor) 250 mg PO DAILY [facility] Last Admin: 07/24/19 08:28 Dose: 250 mg Discontinued Medications Hydromorphone HCl (Dilaudid) 0.5 mg IVPUSH Q2H PRN PRN Reason: Abdominal Pain Last Admin: 07/24/19 06:24 Dose: 0.5 mg Lactated Ringer's (Ringers, Lactated) 1,000 mls @ 999 mls/hr IV .BOLUS ONE Stop: 07/21/19 20:52 Last Admin: 07/21/19 20:03 Dose: 999 mls/hr Lactated Ringer's (Ringers, Lactated) 1,000 mls @ 250 mls/hr IV ASDIRECTED [facility] Last Admin: 07/21/19 22:16 Dose: 250 mls/hr Magnesium Sulfate 2 gm/ Premix 50 mls @ 25 mls/hr IV ONETIME ONE Stop: 07/21/19 23:56 Last Admin: 07/21/19 22:16 Dose: 25 mls/hr Levofloxacin/Dextrose 750 mg/ (Premix) 150 mls @ 100 mls/hr IV ONETIME STA Stop: 07/22/19 00:40 Last Admin: 07/22/19 01:02 Dose: 100 mls/hr Metronidazole 500 mg/ Premix 100 mls @ 100 mls/hr IV ONETIME STA Stop: 07/22/19 00:10 Last Admin: 07/21/19 23:46 Dose: 100 mls/hr Pantoprazole Sodium 80 mg/ (Sodium Chloride) 100 mls @ 10 mls/hr IV Q10H [facility] Last Admin: 07/23/19 12:38 Dose: Not Given Lactated Ringer's (Ringers, Lactated) 1,000 mls @ 150 mls/hr IV ASDIRECTED [facility] Last Admin: 07/23/19 06:33 Dose: 150 mls/hr Potassium Chloride 10 meq/ (Premix) 100 mls @ 100 mls/hr IV Q1H [facility] Stop: 07/22/19 04:59 Last Admin: 07/22/19 06:01 Dose: 100 mls/hr Potassium Chloride/Dextrose/Sod Cl (D5 1/2 Ns W/ 20 Meq/L Kcl) 1,000 mls @ 100 mls/hr IV ASDIRECTED [facility] Last Admin: 07/24/19 06:29 Dose: 100 mls/hr Nicotine (Habitrol) 14 mg TRDERM DAILY [facility] Pantoprazole Sodium (Protonix Iv) 80 mg IVPUSH BOLUS ONE Stop: 07/21/19 23:13 Last Admin: 07/21/19 23:37 Dose: 80 mg Potassium Chloride (Potassium Chloride Solution) 20 meq PO ONETIME ONE Stop: 07/24/19 10:02
[2019-07-24 16:42] VITALS: BP 98/71; PULSE 72
== END 2019-07-24 15:08 | disposition home or self-care (01) | DRG 241 ==
LOC: JD.ED 19:13 → JD.MS 23:51 → EEVIPCON 23:51
PROVIDERS: ADMIT Surgery; ATTEND Surgery
DX: K25.5 Chronic or unspecified gastric ulcer with perforation (principal); E87.6 Hypokalemia; E83.42 Hypomagnesemia; H54.7 Unspecified visual loss; J43.9 Emphysema, unspecified; K44.9 Diaphragmatic hernia without obstruction or gangrene; F41.9 Anxiety disorder, unspecified; F32.9 Major depressive disorder, single episode, unspecified; F17.210 Nicotine dependence, cigarettes, uncomplicated; D50.9 Iron deficiency anemia, unspecified; Z98.51 Tubal ligation status; Z79.899 Other long term (current) drug therapy; Z91.011 Allergy to milk products; Z98.84 Bariatric surgery status; Z79.01 Long term (current) use of anticoagulants
CPT/HCPCS: 36415; 71275; 71275-26; 74177; 74177-26; 80048; 80053; 83690; 83735; 84484; 85007; 85027; 85610; 85730; 87338; 93005; 93010; 96361; 96365; 96366; 96375; 96376; 99285; 99285-25; A9270-GY; C9113; J1170; J1644; J1956; J3475; J3480; J3490; J7050; J7120

== ENCOUNTER 2019-09-15 10:00 | Day surgery (SDC) | payer BC, MEDICAID ==
[~2019-09-15 10:00] MED LIST: Albuterol 0.083% 2.5 MG/3 ML Neb Soln NEB SCH; Lactated Ringers 1,000 ML IV SCH; Lidocaine 1%/Sod Bicarbonate in NS 8.4% 1 ML Syringe IDERM PRN; Sodium Chloride 0.9% 10 ML Syringe FLUSH PRN
--- NOTE | 2019-09-15 10:35 | PCM.PREANE ---
Preanesthetic Assessment - Anesthesia/Transfusion/Family Hx Anesthesia History: Prior Anesthesia Without Reaction Transfusion History: No Prior Transfusion(s) - Review of Systems General: No Symptoms Pulmonary: No Symptoms Cardiovascular: No Symptoms Gastrointestinal: No Symptoms Neurological: No Symptoms Other: Reports: None - Physical Assessment Vital Signs: Last Vital Signs Temp 98.6 F 09/15/19 10:00 Pulse 86 09/15/19 10:00 Resp 20 09/15/19 10:00 BP 108/70 09/15/19 10:00 Pulse Ox 97 09/15/19 10:00 ASA Class: 2 Mental Status: Alert & Oriented x3 Airway Class: Mallampati = 2 Dentition: Reports: Broken Tooth/Teeth, Missing Tooth/Teeth, Caries Thyro-Mental Finger Breadths: 3 Mouth Opening Finger Breadths: 3 ROM/Head Extension: Full Lungs: Clear to Auscultation, Normal Respiratory Effort Cardiovascular: Regular Rate, Regular Rhythm - Lab Values: Laboratory Last Values COVID-19 PCR Not detected (NOT DETECT) 09/13/19 12:20 - Allergies Allergies/Adverse Reactions: Allergies Allergy/AdvReac Type Severity Reaction Status Date / Time Dairy Products AdvReac Headache Verified 09/14/19 14:15 - Acknowledgements Anesthesia Type Planned: MAC Pt an Appropriate Candidate for the Planned Anesthesia: Yes Alternatives and Risks of Anesthesia Discussed w Pt/Guardian: Yes Pt/Guardian Understands and Agrees with Anesthesia Plan: Yes PreAnesthesia Questionnaire HEENT History: Reports: Impaired Vision Other HEENT History: wears glasses Cardiovascular History: Reports: Blood Clots/VTE/DVT, [place] Respiratory History: Reports: COPD Other Respiratory History: emphysema Gastrointestinal History: Reports: GERD, Hiatal Hernia, Other (See Below) Other Gastrointestinal History: ulcerative colitis Genitourinary History: Reports: None [facility] History: Reports: , Other (See Below) Other OB/BYN History: postmenopausal, hormone replacement therapy Musculoskeletal History: Reports: None Neurological History: Reports: None Psychiatric History: Reports: Anxiety, Depression Endocrine/Metabolic History: Reports: None Hematologic History: Reports: Anemia, Iron Deficiency Immunologic History: Reports: None Oncologic (Cancer) History: Reports: None Dermatologic History: Reports: None - Infectious Disease History Infectious Disease History: Reports: C-Difficile, Other (See Below) Other Infectious Disease History: sepsis - Past Surgical History Head Surgeries/Procedures: Reports: None HEENT Surgical History: Reports: None Cardiovascular Surgical History: Reports: Other (See Below) Other Cardiovascular Surgeries/Procedures: [employer] Respiratory Surgical History: Reports: None GI Surgical History: Reports: Bariatric Procedure Other GI Surgeries/Procedures: gastric bypass--[place] procedure greater than 20 years ago. Her baseline weight is 150 pounds. She was 89 when she had the bypass. Female Surgical History: Reports: Section, Tubal Ligation Endocrine Surgical History: Reports: None Neurological Surgical History: Reports: None Musculoskeletal Surgical History: Reports: None Oncologic Surgical History: Reports: None - SUBSTANCE USE Smoking Status *Q: Current Every Day Smoker Recreational Drug Use History: No - HOME MEDS Home Medications: Home Meds L.acidoph,Paracasei, B.lactis [Probiotic] 1 each PO DAILY 08/04/18 [History] Multivitamin [Multi-Day Vitamins] 1 each PO DAILY 08/04/18 [History] Cholecalciferol (Vitamin D3) [Vitamin D3] 2,000 unit PO DAILY 04/30/19 [History] Fluticasone Propionate [Flovent HFA] 1 puff INH BID 04/30/19 [History] Umeclidinium Brm/Vilanterol Tr [Anoro Ellipta 62.5-25 MCG] 1 puff INH DAILY 04/30/19 [History] Pantoprazole [ProTONIX] 40 mg PO BIDAC 30 Days #60 tab.cr 07/24/19 [Rx] Albuterol [Ventolin HFA] 2 puff INH Q4H PRN 09/14/19 [History] Potassium Chloride 10 meq PO DAILY 09/14/19 [History] Venlafaxine HCl [Venlafaxine ER] 75 mg PO DAILY 09/14/19 [History] traZODone HCl [Trazodone HCl] 100 - 150 mg PO BEDTIME PRN 09/14/19 [History] - CURRENT (IN HOUSE) MEDS Current Meds: Current Medications Albuterol (Proventil Neb Soln) 2.5 mg NEB ONETIME [facility] Stop: 09/15/19 14:00 Lactated Ringer's (Ringers, Lactated) 1,000 mls @ 125 mls/hr IV ASDIRECTED [facility] Stop: 09/15/19 23:00 Lidocaine/Sodium Bicarbonate (Buffered Lidocaine 1% In Ns 8.4%) 0.25 ml IDERM ONETIME PRN PRN Reason: Prior to IV Start Stop: 09/15/19 18:00 Sodium Chloride (Saline Flush) 10 ml FLUSH ASDIRECTED PRN PRN Reason: Keep Vein Open Stop: 09/15/19 18:00 Discontinued Medications Albuterol (Proventil Neb Soln) 2.5 mg NEB ONETIME [facility] Stop: 05/03/19 12:00 Albuterol (Proventil Neb Soln) 2.5 mg NEB ONETIME [facility] Stop: 05/10/19 18:00 Lactated Ringer's (Ringers, Lactated) 1,000 mls @ 125 mls/hr IV ASDIRECTED BHAVANI Stop: 05/03/19 23:00 Lactated Ringer's (Ringers, Lactated) 1,000 mls @ 125 mls/hr IV ASDIRECTED BHAVANI Stop: 05/10/19 23:00 Lidocaine/Sodium Bicarbonate (Buffered Lidocaine 1% In Ns 8.4%) 0.25 ml IDERM ONETIME PRN PRN Reason: Prior to IV Start Stop: 05/03/19 18:00 Lidocaine/Sodium Bicarbonate (Buffered Lidocaine 1% In Ns 8.4%) 0.25 ml IDERM ONETIME PRN PRN Reason: Prior to IV Start Stop: 05/10/19 18:00 Sodium Chloride (Saline Flush) 10 ml FLUSH ASDIRECTED PRN PRN Reason: Keep Vein Open Stop: 05/03/19 18:00 Sodium Chloride (Saline Flush) 10 ml FLUSH ASDIRECTED PRN PRN Reason: Keep Vein Open Stop: 05/10/19 18:00
[2019-09-15] MEDS ORDERED: Albuterol 0.083% 2.5 MG/3 ML Neb Soln NEB ONE (10:45)
[2019-09-15] MEDS ORDERED: Propofol 200 MG/20 ML SDV ONE ×3 (11:05→11:49)
[2019-09-15] MEDS ORDERED: Lidocaine 1% 4 ML ONE (11:06)
[2019-09-15] MEDS ORDERED: fentaNYL 100 MCG/2 ML SDV ONE (11:06)
--- NOTE | 2019-09-15 12:28 | PCM.PRNOTE ---
- Free Text/Narrative Note: Operative Report Date of Procedure: September 15, 2019 Pre Op Diagnosis: Recent GI bleed with visceral perforation, change in bowel habits, History of ulcerative colitis, peptic ulcer disease Post-Op Diagnosis: same Operative Procedures: 1. EGD with biopsy 2. Colonoscopy to the cecum with biopsy Primary Surgeon: Estephanie Rowe MD [employer] Casting: Richelle Salazar MS3 Anesthesia Provider: Mathew Kumar CRNA Anesthesia Technique: MAC IV Fluid Replacement, Intraop: 1000cc crystalloid Output, Urine Amount: 0cc EBL in mLs: 0cc Findings: 1. Gastritis 2. Esophagitis 3. Diffuse polyposis in the descending colon to cecum; rectum and sigmoid spared Specimens: 1. Gastric pouch biopsies 2. GE junction biopsies 3. Cecal biopsies 4. Ascending colon biopsies x 2 jars 5. Hepatic flexure biopsies 6. Transverse colon biopsies x 3 jars 7. Splenic flexure biopsies 8. Descending colon biopsies x 4 jars 9. Sigmoid colon biopsies x 2 jars 10. Rectal biopsies Drain/Tubes: None Indication: The patient is a 49-year-old lady who presented to the clinic after recent hospitalization for a perforation of what was assumed to be her gastric pouch. She also has a history of ulcerative colitis that has not had surveillance. The patient reported symptoms of changes in her bowel habits. The patient was consented for a diagnostic EGD and colonoscopy. Risks of bleeding, and perforation were discussed, and the patient agreed to the risks and wished to proceed. Description of the procedure: The patient was taken back to the endoscopy suite, and placed in the left lateral decubitus position. A bite block was placed. The patient was sedated with MAC anesthesia. The Olympus video endoscope was inserted into the orophar ynx and guided under direct vision into the gastric pouch and jejunum. The jejunal limb and jejunal blind pouch were unremarkable. The gastric pouch showed scattered flecks of blood and erythema consistent with gastritis, and cold biopsy forceps were used to take tissue samples for H. pylori. The scope was withdrawn to the esophagus. A this point we noted patches of abnormal appearing mucosa at the level of the Z line. There was also evidence of esophagitis in this area. Biopsies were taken with cold biopsy forceps. The endoscope was then withdrawn. Next, anorectal examination was performed. No lesions, masses or hemorrhoids were noted externally or on palpation. The scope was placed into the rectum and advanced to cecum. Upon reaching the cecum, and the patients cecum was entered. There was moderate tortuosity of the colon, requiring application of external abdominal pressure. The ileocecal valve was well visualized and the appendiceal orifice identified. At this point, the scope was slowly withdrawn, paying attention to the mucosa. The patient had good bowel prep, 85-90% of the mucosa was visible. Diffuse polyposis was noted extending proximally from the descending colon to the cecum. 100s of polyps were noted. the polyps measured 2 to 7 mm, some were pedunculated with fingerlike projection into the lumen. There was no obstructing mass. Biopsies were taken at approximate 10 cm intervals in 4 quadrants or until the adequate number of specimens were achieved from the cecum distal to the rectum. The biopsies included mucosa and polyps. There were no areas of ulcerated mucosa. In the rectum, scope was retroflexed and some hemorrhoidal tissue was noted. The scope was placed back in the lumen and excess air was aspirated. The scope was removed. The patient tolerated the procedure very well. Complications: None apparent Condition: The patient was transported to PACU in stable condition. Estephanie Rowe MD General Surgery
--- NOTE | 2019-09-15 12:33 | PCM.OPNOTE ---
- General Post-Op/Procedure Note Date of Surgery/Procedure: 09/15/19 Operative Procedure(s): EGD and colonoscopy Findings: 1. Gastritis 2. Esophagitis 3. Diffuse polyposis in the descending colon to cecum; rectum and sigmoid spared Pre Op Diagnosis: Recent GI bleed with visceral perforation, change in bowel habits, History of ulcerative colitis, peptic ulcer disease Post-Op Diagnosis: same Anesthesia Technique: MAC Primary Surgeon: Estephanie Rowe Anesthesia Provider: Mathew Kumar Rotary Drum Dyer: Richelle Salazar Reason Rotary Drum Dyer Was Necessary: medical education Pathology: 1. Gastric pouch biopsies 2. GE junction biopsies 3. Cecal biopsies 4. Ascending colon biopsies x 2 jars 5. Hepatic flexure biopsies 6. Transverse colon biopsies x 3 jars 7. Splenic flexure biopsies 8. Descending colon biopsies x 4 jars 9. Sigmoid colon biopsies x 2 jars 10. Rectal biopsies Fluid Replacement, Intraop: 1,000 Output, Urine Amount: 0 EBL in mLs: 0 Complications: none apparent Condition: Good
--- NOTE | 2019-09-15 12:35 | PCM48HPAN ---
Post Anesthesia Note - EVALUATION WITHIN 48HRS OF ANESTHETIC Vital Signs in Normal Range: Yes Patient Participated in Evaluation: Yes Respiratory Function Stable: Yes Airway Patent: Yes Cardiovascular Function Stable: Yes Hydration Status Stable: Yes Pain Control Satisfactory: Yes Nausea and Vomiting Control Satisfactory: Yes Mental Status Recovered: Yes Vital Signs: Last Vital Signs Temp 97.0 F 09/15/19 12:25 Pulse 62 09/15/19 12:25 Resp 12 09/15/19 12:25 BP 93/50 L 09/15/19 12:25 Pulse Ox 97 09/15/19 12:25
[2019-09-15 13:34] VITALS: BP 107/50; PULSE 55
== END 2019-09-15 13:18 | disposition home or self-care (01) ==
LOC: JD.SDS 10:00
PROVIDERS: ATTEND Surgery
DX: D12.0 Benign neoplasm of cecum (principal); K21.0 Gastro-esophageal reflux disease with esophagitis; K29.70 Gastritis, unspecified, without bleeding; Q43.8 Other specified congenital malformations of intestine; K64.9 Unspecified hemorrhoids; K63.89 Other specified diseases of intestine; J43.9 Emphysema, unspecified; F41.9 Anxiety disorder, unspecified; D50.9 Iron deficiency anemia, unspecified; K51.919 Ulcerative colitis, unspecified with unspecified complications; E04.1 Nontoxic single thyroid nodule; R06.83 Snoring; E87.6 Hypokalemia; F32.9 Major depressive disorder, single episode, unspecified; R40.0 Somnolence; F17.210 Nicotine dependence, cigarettes, uncomplicated; Z11.59 Encounter for screening for other viral diseases; Z79.899 Other long term (current) drug therapy; Z91.011 Allergy to milk products; Z79.51 Long term (current) use of inhaled steroids; Z87.11 Personal history of peptic ulcer disease
CPT/HCPCS: 43239; 45380; 87635; 94640; J2001; J2704; J3010; J7120; 00813; U0002

== ENCOUNTER 2021-12-16 10:15 | Emergency (ER) | payer BC ==
[2021-12-16] MEDS ORDERED: Clindamycin Phosphate in D5W 900 MG in Premix Bag 1 BAG IV ONE ×2 (10:42)
[2021-12-16] MEDS ORDERED: Lidocaine 1% 20 ML MDV INJECT ONE (10:44)
[2021-12-16] MEDS ORDERED: Diphtheria,Pertussis(Acell),Tetanus Vaccine 0.5 ML Syringe IM ONE (10:44)
[2021-12-16] MEDS ORDERED: Lidocaine 1% 10 ML MDV ONE (11:53)
[2021-12-16] MEDS ORDERED: Bacitracin Oint 15 GM Tube ONE (13:03)
[2021-12-16 14:03] VITALS: BP 132/81; PULSE 71
== END 2021-12-16 13:52 | disposition home or self-care (01) ==
LOC: JD.ED 10:15
DX: S01.81XA Laceration without foreign body of other part of head, initial encounter (principal); J44.9 Chronic obstructive pulmonary disease, unspecified; Z79.899 Other long term (current) drug therapy; Z91.011 Allergy to milk products; Z23 Encounter for immunization; W22.8XXA Striking against or struck by other objects, initial encounter
CPT/HCPCS: 12016; 70450; 90471; 90715; 96365; 99283; A9270; J3490

== ENCOUNTER 2022-11-21 21:32 | Emergency (ER) | payer BC ==
[2022-11-21 22:02] LABS: BASOPHILS ABSOLUTE AUTO 0.1 K/mm3 (0.0-0.2); BASOPHILS PERCENT AUTO 0.5 % (0.0-1.0); EOSINOPHILS ABSOLUTE AUTO 0.2 K/mm3 (0.0-0.4); EOSINOPHILS PERCENT AUTO 2.1 % (0.0-6.0); HEMATOCRIT 44.8 % (37.0-47.0); HEMOGLOBIN 14.6 gm/dl (12.0-16.0); IMMATURE GRAN ABSOLUTE AUTO 0.04 K/mm3 (0.00-0.05); IMMATURE GRAN PERCENT AUTO 0.4 % (0.0-0.4); LYMPHOCYTES ABSOLUTE AUTO 2.1 K/mm3 (1.0-4.8); LYMPHOCYTES PERCENT AUTO 18.2 % (24.0-44.0); MEAN CORPUSCULAR HEMOGLOBIN 31.3 pg (28.0-32.0); MEAN CORPUSCULAR HGB CONC 32.6 g/dl (32.0-36.0); MEAN CORPUSCULAR VOLUME 95.9 fl (83.0-99.0); MEAN PLATELET VOLUME 9.4 fl (9.4-12.3); MONOCYTES ABSOLUTE AUTO 0.6 K/mm3 (0.0-0.8); MONOCYTES PERCENT AUTO 5.4 % (0.0-8.0); NEUTROPHILS ABSOLUTE AUTO 8.3 K/mm3 (1.8-7.7); NEUTROPHILS PERCENT AUTO 73.4 % (41.0-71.0); PLATELET COUNT,PLT 224 K/mm3 (150-400); RED BLOOD CELL COUNT 4.67 M/mm3 (4.10-5.30); WHITE BLOOD CELL COUNT,WBC 11.25 K/mm3 (3.9-11.3)
[2022-11-21 22:22] LABS: INR 0.95; PROTHROMBIN TIME 10.2 SECONDS (9.7-12.0)
[2022-11-21 22:25] LABS: ALBUMIN 3.7 g/dl (3.4-5.0); ANION GAP 20.3 (5-15); BILIRUBIN TOTAL 0.3 mg/dL (0.2-1.0); CALCIUM 9.2 mg/dL (8.5-10.1); CREATININE 0.7 mg/dL (0.55-1.02); EST CRCL DRUG DOSING (CG) 82.67 mL/min; ETHANOL BLOOD MEDICAL 0.23 gm% (0.00); POTASSIUM,K 3.3 mEq/L (3.5-5.1); PROTEIN TOTAL,TP 7.5 g/dl (6.4-8.2)
[2022-11-21] MEDS ORDERED: Lidocaine 1% 10 ML MDV INJECT ONE (23:50)
[2022-11-22 00:10] LABS: APPEARANCE,URINE CLEAR (Clear); BILIRUBIN,URINE NEGATIVE (Negative); COLOR,URINE YELLOW (Yellow); GLUCOSE,URINE NEGATIVE (Negative); KETONES,URINE NEGATIVE (Negative); LEUKOCYTE ESTERASE,URINE 1+ (Negative); NITRITE,URINE POSITIVE (Negative); OCCULT BLOOD,URINE 2+ (Negative); PROTEIN,URINE NEGATIVE (Negative); UROBILINOGEN,URINE 0.2 (0.2-1.0)
[2022-11-22 00:22] LABS: BACTERIA,URINE MANY /hpf (FEW); BARBITURATE SCREEN,URINE NEGATIVE (CUTOFF=200); BENZODIAZEPINES SCREEN,URINE NEGATIVE (CUTOFF=150); BUPRENORPHINE SCREEN,URINE NEGATIVE (CUTOFF=10); EPITHELIAL CELLS,URINE 0-5 /hpf (0-5); METHADONE SCREEN, URINE NEGATIVE (CUTOFF=200); METHAMPHETAMINES SCREEN, URINE NEGATIVE (CUTOFF=500); MUCUS,URINE NOT SEEN /hpf (FEW); OXYCODONE SCREEN,URINE NEGATIVE (CUT0FF=100); PROPOXYPHENE SCREEN,URINE NEGATIVE (CUTOFF=300); RBC,URINE 0-5 /hpf (0-5); THC SCREEN,URINE 20 NG/ML NEGATIVE (CUTOFF=50); YEAST,URINE FEW (NOT SEEN)
[2022-11-22 00:24] LABS: AMPHETAMINES SCREEN, URINE NEGATIVE (CUTOFF=500)
[2022-11-22] MEDS ORDERED: cefTRIAXone 1 GM in Sodium Chloride 0.9% 100 ML IV ONE (00:26)
[2022-11-22] MEDS ORDERED: Lidocaine 1% 10 ML MDV INJECT ONE (02:36)
[2022-11-22] MEDS ORDERED: fentaNYL 100 MCG/2 ML SDV IVPUSH ONE ×2 (02:56→23:58)
[2022-11-22] MEDS ORDERED: fentaNYL 100 MCG/2 ML SDV ONE (02:56)
[2022-11-22] MEDS ORDERED: Naloxone 0.4 MG/ML SDV IVPUSH PRN (03:14)
[2022-11-22 05:49] VITALS: BP 113/52; PULSE 73
== END 2022-11-22 05:20 ==
LOC: JD.ED 21:32
DX: S06.6X9A Traumatic subarachnoid hemorrhage with loss of consciousness of unspecified duration, initial encounter (principal); F10.920 Alcohol use, unspecified with intoxication, uncomplicated; J44.9 Chronic obstructive pulmonary disease, unspecified; K21.9 Gastro-esophageal reflux disease without esophagitis; Z91.013 Allergy to seafood; Z79.899 Other long term (current) drug therapy; W10.9XXA Fall (on) (from) unspecified stairs and steps, initial encounter
CPT/HCPCS: 12013; 25605; 36415; 70450; 70486; 72125; 72128; 72131; 73100; 73110; 73562; 80053; 80306; 80307; 81001; 84484; 85025; 85610; 93005; 96365; 96375; 99285; J0696; J3010; J3490